=== PATIENT | female | born 1985 | race Caucasian/White ===

== ENCOUNTER 2018-07-16 11:10 | Inpatient (IN) | payer MEDICAID, OTHER, SELFPAY ==
[2018-07-16] MEDS ORDERED: TORADOL IV ONE (11:34)
[2018-07-16] MEDS ORDERED: NACL 0.9% 1000 ML 1,000 ML IV ONE (11:34)
[2018-07-16] MEDS ORDERED: MORPHINE IV ONE ×2 (11:39→13:45)
--- NOTE | 2018-07-16 11:41 | Emergency Department Report ---
ED Abdominal Pain HPI - General Chief Complaint: Abdominal Pain Stated Complaint: KIDNEY STONES/FEVER/PAIN Time Seen by Provider: 07/16/18 11:33 Source: patient, family, RN/MD Mode of arrival: Wheelchair Limitations: Language Barrier - History of Present Illness Initial Comments: This is a 33-year-old female nontoxic, well nourished in appearance, no acute signs of distress presents to the ED with c/o of nausea and vomiting and right flank pain 1 day. Patient was originally seen by Dr. Méndez in his office today and was brought to the ED for further evaulation. As per Dr. Méndez request, patient to received a CT with contrast to rule out kidney stone. Patient describes vomiting as food content and yellow gastric acid. Patient describes right flank pain as cramping and aching with level of 3/10 with some radiation to right upper abdominal. Patient denies chest pain, short of breath, fever, chills, headache, stiff neck, numbness or tingling. Patient denies any diarrhea or constipation. Patient denies any recent travels. Patient denies any urinary symptoms. Patient denies any allergies or PMH. Patient is Italian speaking, Alice auriculotherapist present during interview and physical exam. MD Complaint: flank pain -: days(s) (1) Location: R flank Radiation: RUQ Migration to: no migration Severity: mild Severity scale (0 -10): 8 Quality: aching Consistency: constant Improves With: nothing Worsens With: nothing Associated Symptoms: nausea, vomiting. denies: diarrhea, fever, chills, constipation, dysuria, hematemesis, hematochezia, melena, hematuria, anorexia, syncope - Related Data Home Medications Medication Instructions Recorded Confirmed Last Taken No Known Home Medications [No 07/16/18 07/16/18 Unknown Reported Home Medications] Allergies Allergy/AdvReac Type Severity Reaction Status Date / Time No Known Allergies Allergy Verified 07/16/18 11:20 ED Review of Systems ROS: Stated complaint: KIDNEY STONES/FEVER/PAIN Other details as noted in HPI Constitutional: denies: chills, fever Eyes: denies: eye pain, eye discharge, vision change ENT: denies: ear pain, throat pain Respiratory: denies: cough, shortness of breath, wheezing Cardiovascular: denies: chest pain, palpitations Endocrine: no symptoms reported Gastrointestinal: nausea, vomiting, other (right flank pain). denies: abdominal pain, diarrhea Genitourinary: denies: urgency, dysuria, discharge Musculoskeletal: denies: back pain, joint swelling, arthralgia Skin: denies: rash, lesions Neurological: denies: headache, weakness, paresthesias Psychiatric: denies: anxiety, depression Hematological/Lymphatic: denies: easy bleeding, easy bruising ED Past Medical Hx - Past Medical History Hx Hypertension: No Hx Congestive Heart Failure: No Hx Diabetes: No Hx Deep Vein Thrombosis: No Hx Renal Disease: No Hx Sickle Cell Disease: No Hx Seizures: No Hx Asthma: No Hx COPD: No Hx HIV: No - Surgical History Past Surgical History?: No - Social History Smoking Status: Never Smoker Substance Use Type: None - Medications Home Medications: Home Medications Medication Instructions Recorded Confirmed Last Taken Type No Known Home Medications [No 07/16/18 07/16/18 Unknown History Reported Home Medications] ED Physical Exam - General Limitations: Language Barrier General appearance: alert, in no apparent distress - Head Head exam: Present: atraumatic, normocephalic - Eye Eye exam: Present: normal appearance - Neck Neck exam: Present: normal inspection, full ROM - Respiratory Respiratory exam: Present: normal lung sounds bilaterally. Absent: respiratory distress, wheezes, rales, rhonchi, stridor, chest wall tenderness, accessory muscle use, decreased breath sounds, prolonged expiratory - Cardiovascular Cardiovascular Exam: Present: regular rate, normal rhythm, normal heart sounds. Absent: bradycardia, tachycardia, irregular rhythm, systolic murmur, diastolic murmur, rubs, gallop - GI/Abdominal GI/Abdominal exam: Present: soft, normal bowel sounds. Absent: distended, tenderness, guarding, rebound, rigid, diminished bowel sounds - Expanded GI/Abdominal Exam Expanded GI/Abdominal exam: Absent: psoas sign, Enriquez's sign, Rovsing's sign, tenderness at Mcburney's Point, ascites - Extremities Exam Extremities exam: Present: normal inspection, full ROM - Back Exam Back exam: Present: normal inspection, full ROM, tenderness, CVA tenderness (R). Absent: CVA tenderness (L), muscle spasm, paraspinal tenderness, vertebral tenderness, rash noted - Neurological Exam Neurological exam: Present: alert, oriented X3 - Psychiatric Psychiatric exam: Present: normal affect, normal mood - Skin Skin exam: Present: warm, dry, intact, normal color. Absent: rash ED Course Vital Signs 07/16/18 07/16/18 07/16/18 11:12 11:38 12:00 Temperature 98.9 F Pulse Rate 90 89 86 Respiratory 18 14 25 H Rate Blood Pressure 115/68 110/65 O2 Sat by Pulse 100 100 99 Oximetry 07/16/18 12:30 Temperature Pulse Rate 81 Respiratory 21 Rate Blood Pressure 141/69 O2 Sat by Pulse 100 Oximetry - Reevaluation(s) Reevaluation #1: 07/16/18 11:42 Patient is speaking in full sentences with no signs of distress noted. - Consultations Consultation #1: 07/16/18 13:41 Patient has been consulted with Dr. Méndez (Urology) about patient history, physical exam, and labs/CT results and agrees to the ED plan of care and will admit patient for further treatment and evaluation. ED Medical Decision Making - Lab Data Result diagrams: 07/16/18 11:44 07/16/18 11:44 - Medical Decision Making This is a 33-year-old female that presents with hydronephrosis with a large obstructing stone in the right UVJ. Patient also does have some cholelithiasis. Patient was consulted With Dr. Méndez and admitted for further treatment and evaluation. She received 1 g of Rocephin IV in the ER. Pain under control with morphine and Toradol IV. Put on NPO. At time of admission, the patient does not seem toxic or ill in appearance. No acute signs of distress noted. Patient agrees to admission treatment plan of care. No further questions noted by the patient. Critical care attestation.: If time is entered above; I have spent that time in minutes in the direct care of this critically ill patient, excluding procedure time. ED Disposition Clinical Impression: Hydronephrosis with renal calculous obstruction Cholelithiasis Qualifiers: Cholelithiasis location: gallbladder Cholecystitis presence: without cholecystitis Biliary obstruction: without biliary obstruction Qualified Code(s): K80.20 - Calculus of gallbladder without cholecystitis without obstruction Disposition: OP ADMIT IP TO THIS HOSP Is pt being admited?: Yes Condition: Stable Referrals: PRIMARY CARE,MD [Primary Care Provider] - 3-5 Days
[2018-07-16] MEDS ORDERED: MORPHINE ONE ×2 (11:49→13:47)
[2018-07-16] MEDS ORDERED: ZOFRAN IV NR (12:00)
[2018-07-16 12:02] LABS: Basophils # (Auto) 0.1 K/mm3 (0.0-0.1); Basophils % (Auto) 0.6 % (0.0-1.8); Eosinophils # (Auto) 0.1 K/mm3 (0.0-0.4); Eosinophils % (Auto) 1.3 % (0.0-4.3); Hematocrit 39.4 % (30.3-42.9); Lymphocytes # (Auto) 1.7 K/mm3 (1.2-5.4); Lymphocytes % (Auto) 18.7 % (13.4-35.0); Mean Corpuscular HGB Conc 33 % (30-34); Mean Corpuscular Volume 84 fl (79-97); Monocytes # (Auto) 0.5 K/mm3 (0.0-0.8); Monocytes % (Auto) 5.7 % (0.0-7.3); Platelet Count 203 K/mm3 (140-440); Red Blood Count 4.72 M/mm3 (3.65-5.03)
[2018-07-16 12:17] LABS: Alanine Aminotransferase 67 units/L (7-56); BUN/Creatinine Ratio 18; Bilirubin,Direct 0.3 mg/dL (0-0.2); Blood Urea Nitrogen 9 mg/dL (7-17); Calcium 8.6 mg/dL (8.4-10.2); Hemolysis Index 11
[2018-07-16 12:56] LABS: Bacteria,Urine 1+ /HPF (Negative); Bilirubin,Urine NEG (Negative); Blood,Urine SM (Negative); Color,Urine Yellow (Yellow); Mucus,Urine 2+ /HPF; Protein,Urine <15 mg/dL mg/dL (Negative); Urobilinogen,Urine < 2.0 mg/dL (<2.0)
--- NOTE | 2018-07-16 13:24 | Cat Scan Report ---
CT ABDOMEN PELVIS WITHOUT CONTRAST: HISTORY: Right flank pain. COMPARISON: none. TECHNIQUE: Helical CT in 1.25mm intervals without IV contrast. Sagittal and coronal reconstructions. FINDINGS: Lung bases: Normal. Liver: Moderate diffuse fatty infiltration is identified throughout the liver. Borderline to mild hepatomegaly. Biliary system: There are several small calcified gallstones in the gallbladder. No biliary dilatation or inflammation. Pancreas: Normal. Spleen: Normal. Kidneys/ureters/bladder: Moderate to severe right hydronephrosis is identified. An 11 x 6 x 5 mm stone is identified along the intramural portion of the right UVJ. No left ureteral stones. There are a few punctate renal calyceal stones in both kidneys. No focal renal lesion is appreciated. There appears to be a residual IV contrast in the renal collecting systems and bladder suggesting recent CT with IV contrast. Adrenal glands: Normal. Aorta: Normal. Intestines: Normal. Appendix: Normal. Pelvic viscera: Normal. Ascites: None. Adenopathy: None. Musculoskeletal: Normal. IMPRESSION: Large obstructing stone at the right UVJ as described. Punctate bilateral renal calyceal stones. Hepatomegaly with diffuse fatty infiltration. Cholelithiasis.
[2018-07-16] MEDS ORDERED: ROCEPHIN/NS 1 GM/50 ML 1 GM/50 ML BAG IV ONE (13:30)
--- NOTE | 2018-07-16 15:44 | Anesthesia Day of Surgery ---
Anesthesia Day of Surgery - Day of Surgery Patient Examined: Yes Patient H&P Reviewed: Yes Patient is NPO: Yes (8am today)
--- NOTE | 2018-07-16 15:46 | Anesthesia Consultation ---
Anesthesia Consult and Med Hx Date of service: 07/16/18 - Airway Anesthetic Teeth Evaluation: Good ROM Head & Neck: Adequate Mental/Hyoid Distance: Adequate Mallampati Class: Class II Intubation Access Assessment: Probably Good - Pre-Operative Health Status ASA Pre-Surgery Classification: ASA2 Proposed Anesthetic Plan: General - Pulmonary Hx Asthma: No COPD: No Hx Pneumonia: No - Cardiovascular System Hx Hypertension: No - Central Nervous System Hx Seizures: No Hx Psychiatric Problems: No - Endocrine Hx Renal Disease: No Hx End Stage Renal Disease: No Hx Hypothyroidism: No Hx Hyperthyroidism: No - Hematic Hx Anemia: No Hx Sickle Cell Disease: No - Other Systems Hx Alcohol Use: No Hx Obesity: Yes
[2018-07-16] MEDS ORDERED: DIPRIVAN 10 MG/ML IV ONE (16:02)
[2018-07-16] MEDS ORDERED: XYLOCAINE CARDIAC IV ONE (16:02)
[2018-07-16] MEDS ORDERED: SUBLIMAZE ONE (16:02)
[2018-07-16] MEDS ORDERED: OMNIPAQUE 300 MG/50 ML (CATH LAB) IV ONE (16:48)
[2018-07-16] MEDS ORDERED: VERSED ONE (16:51)
--- NOTE | 2018-07-16 17:14 | Post Operative Note ---
Date of procedure: 07/16/18 Pre-op diagnosis: cysto stetn rpg ureteral stoen temp 103 Post-op diagnosis: same Findings: pus r kidney Procedure: cayto stent Anesthesia: MAC Surgeon: GEORGINA BREWSTER Estimated blood loss: none Pathology: list (urine) Specimen disposition: to lab Condition: stable Disposition: PACU
[2018-07-16] MEDS ORDERED: ZOFRAN ONE (17:31)
[2018-07-16] MEDS ORDERED: DECADRON ONE (17:31)
[2018-07-16] MEDS ORDERED: NACL 0.9% 1000 ML 1,000 ML ONE ×2 (17:40→18:36)
[2018-07-16] MEDS ORDERED: SODIUM CHLORIDE FLUSH SYRINGE 10 ML IV PRN (18:04)
--- NOTE | 2018-07-16 18:22 | Event Note ---
Date: 07/16/[address] Méndez. Successful ureteral stent placement. If was unsuccessful, would have placed a percutaneous nephrostomy tube. No further need since ureteral stent successfully placed.
--- NOTE | 2018-07-16 18:25 | Operative Report ---
PREOPERATIVE DIAGNOSES: Sepsis, temperature of 103, severe right flank pain, nausea and vomiting, dehydration. POSTOPERATIVE DIAGNOSES: Sepsis, temperature of 103, severe right flank pain, nausea and vomiting, dehydration. PROCEDURE: Cystoscopy, right retrograde, right stent. SURGEON: Fazal Méndez MD ANESTHESIA: General. FINDINGS: This is a woman who presented with a large stone, distal ureter. She looked a little toxic in the office. She was here with her daughter. We sent her to the Emergency Room for treatment. Before the procedure, I spoke to Dr. Perez who was tied up in special procedures could not do a percutaneous nephrostomy until to , maybe tonight. She was now 103.5 and we told him we would try to do this under MAC. If we were unsuccessful, he would do the percutaneous nephrostomy tonight. DESCRIPTION OF PROCEDURE: The patient brought to the operating room and placed on the operating table. Following the induction of mild sedation, placed in the lithotomy position, prepped and draped in usual sterile fashion. She was tachycardic and febrile and hypotensive. The stone was at the orifice with a 3-prong grasper was too big to extract, but we were able to push it a little more proximal so we can get a wire up a tortuous kinked ureter. The ureter straightened out and we were able to place a 6-English double J. Urine was collected for culture. There was purulent material within it. The patient tolerated the procedure well. A Stuart was left, ____ coiled in the kidney and bladder, brought to recovery in stable condition. JOB# [id number] BEBE/MOISE
[2018-07-16] MEDS ORDERED: DILAUDID IM PRN (18:28)
[2018-07-16] MEDS ORDERED: DILAUDID ONE (18:35)
--- NOTE | 2018-07-16 20:06 | History and Physical Report ---
History of Present Illness Date of examination: 07/16/18 Date of admission: 07/16/2017 Chief complaint: Right flank pain for 1 day associated with nausea and vomiting and fever. History of present illness: 33-year-old female presents with nausea and vomiting and right flank pain of one-day duration. Patient was seen in Dr. Humphries's office and was sent to the emergency room for further evaluation. Patient had CT of the abdomen with contrast to rule out kidney stone in the emergency room. Patient was found to have a right distal ureteric stone for which she was taken to the operating room for ureteral stent placement. Patient being admitted from the PACU. Patient did nausea vomiting before the procedure for one day. Pain was about 10 on scale of 1-10. Patient also had a fever of 100F. Patient was seen by me in PACU after the right ureteral stent was placed. Patient being admitted for fever and urinary tract infection. Past Medical History kidney stones Surgical History Past Surgical History?: No Social History Smoking Status: Never Smoker Substance Use Type: None Family history Noncontributory Medications Home Medications: Home Medications Medication Instructions Recorded Confirmed Last Taken Type No Known Home Medications [No 07/16/18 07/16/18 Unknown History Reported Home Medications] Review of systems ROS: Stated complaint: KIDNEY STONES/FEVER/PAIN Other details as noted in HPI Constitutional: denies: chills, fever Eyes: denies: eye pain, eye discharge, vision change ENT: denies: ear pain, throat pain Respiratory: denies: cough, shortness of breath, wheezing Cardiovascular: denies: chest pain, palpitations Endocrine: no symptoms reported Gastrointestinal: nausea, vomiting, right flank pain. And abdominal pain---10/10 intermittent Genitourinary: denies: urgency, dysuria, discharge Musculoskeletal: denies: back pain, joint swelling, arthralgia Skin: denies: rash, lesions Neurological: denies: headache, weakness, paresthesias Psychiatric: denies: anxiety, depression Hematological/Lymphatic: denies: easy bleeding, easy bruising Medications and Allergies Allergies Allergy/AdvReac Type Severity Reaction Status Date / Time No Known Allergies Allergy Verified 07/16/18 11:20 Home Medications Medication Instructions Recorded Confirmed Last Taken Type No Known Home Medications [No 07/16/18 07/16/18 Unknown History Reported Home Medications] Active Meds: Active Medications Acetaminophen (Tylenol) 650 mg PO Q4H PRN PRN Reason: Pain MILD(1-3)/Fever >100.5/GAINES Famotidine (Pepcid) 20 mg IV BID [facility] Hydromorphone HCl (Dilaudid) 0.5 mg IV Q3H PRN PRN Reason: Pain , Severe (7-10) Hydromorphone HCl (Dilaudid) 0.5 mg IM Q10M PRN PRN Reason: Pain, Moderate (4-6) Ceftriaxone Sodium (Rocephin/Ns 2 Gm/100 Ml) 2 gm in 100 mls @ 200 mls/hr IV Q24HR [facility]; Protocol Ondansetron HCl (Zofran) 4 mg IV PREOP NR Stop: 07/16/18 23:59 Last Admin: 07/16/18 11:59 Dose: 4 mg Documented by: Ondansetron HCl (Zofran) 4 mg IV Q3H PRN PRN Reason: Nausea And Vomiting Sodium Chloride (Sodium Chloride Flush Syringe 10 Ml) 10 ml IV BID [facility] Sodium Chloride (Sodium Chloride Flush Syringe 10 Ml) 10 ml IV PRN PRN PRN Reason: LINE FLUSH Exam - Constitutional Vitals: Temp Pulse Resp BP Pulse Ox 99.2 F 102 H 22 103/61 97 07/16/18 19:40 07/16/18 19:40 07/16/18 19:40 07/16/18 19:40 07/16/18 19:40 General appearance: Present: no acute distress, well-nourished - EENT Eyes: Present: PERRL ENT: hearing intact, clear oral mucosa - Neck Neck: Present: supple, normal ROM - Respiratory Respiratory effort: normal Respiratory: bilateral: CTA - Cardiovascular Heart rate: 80 Rhythm: regular Heart Sounds: Present: S1 & S2. Absent: rub, click - Extremities Extremities: no ischemia, pulses intact, pulses symmetrical, No edema Peripheral Pulses: within normal limits - Abdominal General gastrointestinal: Present: soft, non-tender, non-distended, normal bowel sounds Female genitourinary: Present: normal - Rectal Rectal Exam: deferred - Integumentary Integumentary: Present: clear, warm, dry - Musculoskeletal Musculoskeletal: gait normal, strength equal bilaterally - Psychiatric Psychiatric: appropriate mood/affect, intact judgment & insight - Neurologic Neurologic: CNII-XII intact, moves all extremities - Allied Health Allied health notes reviewed: nursing, case management Results - Labs CBC & Chem 7: 07/16/18 11:44 07/16/18 11:44 Labs: Laboratory Last Values WBC 8.9 K/mm3 (4.5-11.0) 07/16/18 11:44 RBC 4.72 M/mm3 (3.65-5.03) 07/16/18 11:44 Hgb 13.0 gm/dl (10.1-14.3) 07/16/18 11:44 Hct 39.4 % (30.3-42.9) 07/16/18 11:44 MCV 84 fl (79-97) 07/16/18 11:44 MCH 28 pg (28-32) 07/16/18 11:44 MCHC 33 % (30-34) 07/16/18 11:44 RDW 13.0 % (13.2-15.2) L 07/16/18 11:44 Plt Count 203 K/mm3 (140-440) 07/16/18 11:44 Lymph % (Auto) 18.7 % (13.4-35.0) 07/16/18 11:44 [place] % (Auto) 5.7 % (0.0-7.3) 07/16/18 11:44 Eos % (Auto) 1.3 % (0.0-4.3) 07/16/18 11:44 Baso % (Auto) 0.6 % (0.0-1.8) 07/16/18 11:44 Lymph # 1.7 K/mm3 (1.2-5.4) 07/16/18 11:44 [place] # 0.5 K/mm3 (0.0-0.8) 07/16/18 11:44 Eos # 0.1 K/mm3 (0.0-0.4) 07/16/18 11:44 Baso # 0.1 K/mm3 (0.0-0.1) 07/16/18 11:44 Seg Neutrophils % 73.7 % (40.0-70.0) H 07/16/18 11:44 Seg Neutrophils # 6.5 K/mm3 (1.8-7.7) 07/16/18 11:44 Sodium 138 mmol/L (137-145) 07/16/18 11:44 Potassium 4.3 mmol/L (3.6-5.0) 07/16/18 11:44 Chloride 103.9 mmol/L (98-107) 07/16/18 11:44 Carbon Dioxide 25 mmol/L (22-30) 07/16/18 11:44 Anion Gap 13 mmol/L 07/16/18 11:44 BUN 9 mg/dL (7-17) 07/16/18 11:44 Creatinine 0.5 mg/dL (0.7-1.2) L 07/16/18 11:44 Estimated GFR > 60 ml/min 07/16/18 11:44 BUN/Creatinine Ratio 18 % 07/16/18 11:44 Glucose 111 mg/dL (65-100) H 07/16/18 11:44 Hemoglobin A1c 6.5 % (4-6) H 07/16/18 18:22 Calcium 8.6 mg/dL (8.4-10.2) 07/16/18 11:44 Total Bilirubin 1.40 mg/dL (0.1-1.2) H 07/16/18 11:44 Direct Bilirubin 0.3 mg/dL (0-0.2) H 07/16/18 11:44 Indirect Bilirubin 1.1 mg/dL 07/16/18 11:44 AST 29 units/L (5-40) 07/16/18 11:44 ALT 67 units/L (7-56) H 07/16/18 11:44 Alkaline Phosphatase 66 units/L (35-129) 07/16/18 11:44 Total Protein 6.7 g/dL (6.3-8.2) 07/16/18 11:44 Albumin 4.0 g/dL (3.9-5) 07/16/18 11:44 Albumin/Globulin Ratio 1.5 % 07/16/18 11:44 Lipase 30 units/L (13-60) 07/16/18 11:44 HCG, Qual Negative (Negative) 07/16/18 11:44 Urine Color Yellow (Yellow) 07/16/18 11:50 Urine Turbidity Slightly-cloudy (Clear) 07/16/18 11:50 Urine pH 6.0 (5.0-7.0) 07/16/18 11:50 Ur Specific [place] 1.020 (1.003-1.030) 07/16/18 11:50 Urine Protein <15 mg/dl mg/dL (Negative) 07/16/18 11:50 Urine Glucose (UA) Neg mg/dL (Negative) 07/16/18 11:50 Urine Ketones Neg mg/dL (Negative) 07/16/18 11:50 Urine Blood Sm (Negative) 07/16/18 11:50 Urine Nitrite Neg (Negative) 07/16/18 11:50 Urine Bilirubin Neg (Negative) 07/16/18 11:50 Urine Urobilinogen < 2.0 mg/dL (<2.0) 07/16/18 11:50 Ur Leukocyte Esterase Mod (Negative) 07/16/18 11:50 Urine WBC (Auto) 25.0 /HPF (0.0-6.0) H 07/16/18 11:50 Urine RBC (Auto) 1.0 /HPF (0.0-6.0) 07/16/18 11:50 U Epithel Cells (Auto) 8.0 /HPF (0-13.0) 07/16/18 11:50 Urine Bacteria (Auto) 1+ /HPF (Negative) 07/16/18 11:50 Urine Mucus 2+ /HPF 07/16/18 11:50 Short CBC 07/16/18 Range/Units 11:44 WBC 8.9 (4.5-11.0) K/mm3 Hgb 13.0 (10.1-14.3) gm/dl Hct 39.4 (30.3-42.9) % Plt Count 203 (140-440) K/mm3 BMP 07/16/18 11:44 Sodium 138 Potassium 4.3 Chloride 103.9 Carbon Dioxide 25 BUN 9 Creatinine 0.5 L Glucose 111 H Calcium 8.6 Liver Function 07/16/18 Range/Units 11:44 Total Bilirubin 1.40 H (0.1-1.2) mg/dL Direct Bilirubin 0.3 H (0-0.2) mg/dL AST 29 (5-40) units/L ALT 67 H (7-56) units/L Alkaline Phosphatase 66 (35-129) units/L Albumin 4.0 (3.9-5) g/dL Urine 07/16/18 Range/Units 11:50 Urine Color Yellow (Yellow) Urine pH 6.0 (5.0-7.0) Ur Specific [place] 1.020 (1.003-1.030) Urine Protein <15 mg/dl (Negative) mg/dL Urine Glucose (UA) Neg (Negative) mg/dL - Imaging and Cardiology CT scan - abdomen: report reviewed Imaging and Cardiology: CT abdomen and pelvis IMPRESSION: Large obstructing stone at the right UVJ as described. Punctate bilateral renal calyceal stones. Hepatomegaly with diffuse fatty infiltration. Cholelithiasis. Assessment and Plan Advance Directives: Yes (full code) VTE prophylaxis?: Chemical Plan of care discussed with patient/family: Yes - Patient Problems (1) SIRS (systemic inflammatory response syndrome) Current Visit: Yes Status: Acute Plan to address problem: Patient has fever and urinary tract infection Patient initiated on IV Rocephin pending urine cultures (2) Hydronephrosis with renal calculous obstruction Current Visit: Yes Status: Acute Plan to address problem: Patient had right ureteral stent placement. Postop patient doing well. (3) Urinary tract infection Current Visit: Yes Status: Acute Qualifiers: Urinary tract infection type: acute pyelonephritis Qualified Code(s): N10 - Acute pyelonephritis Plan to address problem: Patient on IV ceftriaxone Check urine cultures (4) Cholelithiasis Current Visit: Yes Status: Chronic Qualifiers: Cholelithiasis location: gallbladder Cholecystitis presence: without cholecystitis Biliary obstruction: without biliary obstruction Qualified Code(s): K80.20 - Calculus of gallbladder without cholecystitis without obstruction Plan to address problem: Incidental finding on the CT of the abdomen Patient to be informed so that she can follow up with her PCP (5) DVT prophylaxis Current Visit: Yes Status: Acute Plan to address problem: On Lovenox and GI prophylaxis
[2018-07-16] MEDS: DILAUDID IV PRN (21:18)
[2018-07-16] MEDS: D5NS 1,000 ML IV SCH (21:37)
[2018-07-16] MEDS: PEPCID IV SCH (21:37)
[2018-07-16] MEDS: LOVENOX SUB-Q SCH (21:37)
[2018-07-16] MEDS: SODIUM CHLORIDE FLUSH SYRINGE 10 ML IV SCH (21:43)
[2018-07-16] MEDS ORDERED: ROCEPHIN/NS 1 GM/50 ML 1 GM/50 ML BAG IV SCH ×2 (22:00)
[2018-07-16] MEDS: ROCEPHIN/NS 2 GM/100 ML 2 GM/100 ML BAG IV SCH (22:31)
[2018-07-17] MEDS: DILAUDID IV PRN ×4 (03:50→20:19)
[2018-07-17 06:13] LABS: Basophils % (Auto) 0.3 % (0.0-1.8); Hematocrit 36.5 % (30.3-42.9); Hemoglobin 11.9 gm/dl (10.1-14.3); Lymphocytes # (Auto) 1.1 K/mm3 (1.2-5.4); Lymphocytes % (Auto) 9.6 % (13.4-35.0); Mean Corpuscular HGB Conc 33 % (30-34); Mean Corpuscular Volume 85 fl (79-97); Monocytes % (Auto) 5.9 % (0.0-7.3); Platelet Count 183 K/mm3 (140-440); Red Blood Count 4.31 M/mm3 (3.65-5.03); Red Cell Distribution Width 13.1 % (13.2-15.2)
[2018-07-17 06:14] LABS: Monocytes # (Auto) 0.6 K/mm3 (0.0-0.8)
[2018-07-17 06:58] LABS: Alanine Aminotransferase 45 units/L (7-56); Albumin 3.4 g/dL (3.9-5); BUN/Creatinine Ratio 15; Blood Urea Nitrogen 6 mg/dL (7-17); Calcium 7.6 mg/dL (8.4-10.2); Hemolysis Index 5
--- NOTE | 2018-07-17 08:00 | Progress Note ---
Assessment and Plan Assessment and plan: Patient is a 33 yo Mongolian speaking woman with a history of kidney stones who presented to [facility] ED with flank pains, n/v. Patient was seen in Urologist's office, Dr. Méndez and was sent to ED for further evaluation. Patient was found to have large obstructing right UVJ stone for which she under cystoscopy followed by Ureteral shent placement. Pre-op temp was 103F per Op report. * CT abdomen and pelvis without contrast IMPRESSION: Large obstructing stone at the right UVJ as described. Punctate bilateral renal calyceal stones. Hepatomegaly with diffuse fatty infiltration. Cholelithiasis. * Cysto Date of procedure: 07/16/18, Pre-op diagnosis: cysto stetn rpg ureteral stoen temp 103, Post-op diagnosis: same, Findings: pus r kidney, Procedure: cayto stent, Anesthesia: MAC, Surgeon: GEORGINA MÉNDEZ * IR, Dr. Perez: Successful ureteral stent placement. If was unsuccessful, would have placed a percutaneous nephrostomy tube. No further need since ureteral stent successfully placed. -Sepsis UTI from Nephrolithiasis s/p shent placement: treat with abx, tylenol and IVF, , follow up urine ctx -Obstuctive Uropathy with Hydronephrosis with renal calculous obstruction: Urology is following -Urinary tract infection: treat with IV abx, follow urine culture -Cholelithiasis, Incidental finding on the CT of the abdomen, Patient to be informed so that she can follow up with her PCP -Obesity, bmi 33.6: legal counsel on lifestyle modifications DVT prophylaxix reviewed Await urine culture and still febrile History Interval history: Patient was seen and examined. Follow-up on current diagnosis of abd pain/n/v and infected kidney stone. Overnight uneventful. Patient denies any chest pain, shortness breath or severe headaches. Imaging, nursing note, chart, labs and old chart reviewed. Discussed with patient. Hospitalist Physical - Physical exam Narrative exam: Gen: WDWN, NAD, Awake, Alert, Orientated HEENT: NCAT, EOMI, PERRL, OP Clear Neck: supple, no adenopathy, no thyromegaly, no JVD CVS/Heart: RRR, normal S1S2, pulses present bilaterally Chest/Lungs: CTA B, Symmetrical chest expansion, good air entry bilaterally GI/Abdomen: soft, NTND, good bowel sounds, no guarding or rebound /Bladder: no suprapubic tenderness, no CVA or paraspinal tenderness Extermity/Skin: no c/c/e, no obvious rash MSK: FROM x 4 Neuro: CN 2-12 grossly intact, no new focal deficits Psych: calm - Constitutional Vitals: Temp Pulse Resp BP Pulse Ox 98.8 F 91 H 20 98/60 96 07/17/18 04:14 07/17/18 04:14 07/17/18 04:14 07/17/18 04:14 07/17/18 04:14 General appearance: Present: no acute distress, well-nourished Results - Labs CBC & Chem 7: 07/17/18 05:59 07/17/18 05:59 Labs: Laboratory Last Values WBC 11.0 K/mm3 (4.5-11.0) 07/17/18 05:59 RBC 4.31 M/mm3 (3.65-5.03) 07/17/18 05:59 Hgb 11.9 gm/dl (10.1-14.3) 07/17/18 05:59 Hct 36.5 % (30.3-42.9) 07/17/18 05:59 MCV 85 fl (79-97) 07/17/18 05:59 MCH 28 pg (28-32) 07/17/18 05:59 MCHC 33 % (30-34) 07/17/18 05:59 RDW 13.1 % (13.2-15.2) L 07/17/18 05:59 Plt Count 183 K/mm3 (140-440) 07/17/18 05:59 Lymph % (Auto) 9.6 % (13.4-35.0) L 07/17/18 05:59 [place] % (Auto) 5.9 % (0.0-7.3) 07/17/18 05:59 Eos % (Auto) 0.0 % (0.0-4.3) 07/17/18 05:59 Baso % (Auto) 0.3 % (0.0-1.8) 07/17/18 05:59 Lymph # 1.1 K/mm3 (1.2-5.4) L 07/17/18 05:59 [place] # 0.6 K/mm3 (0.0-0.8) 07/17/18 05:59 Eos # 0.0 K/mm3 (0.0-0.4) 07/17/18 05:59 Baso # 0.0 K/mm3 (0.0-0.1) 07/17/18 05:59 Seg Neutrophils % 84.2 % (40.0-70.0) H 07/17/18 05:59 Seg Neutrophils # 9.3 K/mm3 (1.8-7.7) H 07/17/18 05:59 Sodium 136 mmol/L (137-145) L 07/17/18 05:59 Potassium 3.6 mmol/L (3.6-5.0) 07/17/18 05:59 Chloride 103.6 mmol/L (98-107) 07/17/18 05:59 Carbon Dioxide 22 mmol/L (22-30) 07/17/18 05:59 Anion Gap 14 mmol/L 07/17/18 05:59 BUN 6 mg/dL (7-17) L 07/17/18 05:59 Creatinine 0.4 mg/dL (0.7-1.2) L 07/17/18 05:59 Estimated GFR > 60 ml/min 07/17/18 05:59 BUN/Creatinine Ratio 15 % 07/17/18 05:59 Glucose 146 mg/dL (65-100) H 07/17/18 05:59 Hemoglobin A1c 6.5 % (4-6) H 07/16/18 18:22 Calcium 7.6 mg/dL (8.4-10.2) L 07/17/18 05:59 Total Bilirubin 0.80 mg/dL (0.1-1.2) 07/17/18 05:59 Direct Bilirubin 0.3 mg/dL (0-0.2) H 07/16/18 11:44 Indirect Bilirubin 1.1 mg/dL 07/16/18 11:44 AST 15 units/L (5-40) 07/17/18 05:59 ALT 45 units/L (7-56) 07/17/18 05:59 Alkaline Phosphatase 53 units/L (35-129) 07/17/18 05:59 Total Protein 5.6 g/dL (6.3-8.2) L 07/17/18 05:59 Albumin 3.4 g/dL (3.9-5) L 07/17/18 05:59 Albumin/Globulin Ratio 1.5 % 07/17/18 05:59 Lipase 30 units/L (13-60) 07/16/18 11:44 HCG, Qual Negative (Negative) 07/16/18 11:44 Urine Color Yellow (Yellow) 07/16/18 11:50 Urine Turbidity Slightly-cloudy (Clear) 07/16/18 11:50 Urine pH 6.0 (5.0-7.0) 07/16/18 11:50 Ur Specific [place] 1.020 (1.003-1.030) 07/16/18 11:50 Urine Protein <15 mg/dl mg/dL (Negative) 07/16/18 11:50 Urine Glucose (UA) Neg mg/dL (Negative) 07/16/18 11:50 Urine Ketones Neg mg/dL (Negative) 07/16/18 11:50 Urine Blood Sm (Negative) 07/16/18 11:50 Urine Nitrite Neg (Negative) 07/16/18 11:50 Urine Bilirubin Neg (Negative) 07/16/18 11:50 Urine Urobilinogen < 2.0 mg/dL (<2.0) 07/16/18 11:50 Ur Leukocyte Esterase Mod (Negative) 07/16/18 11:50 Urine WBC (Auto) 25.0 /HPF (0.0-6.0) H 07/16/18 11:50 Urine RBC (Auto) 1.0 /HPF (0.0-6.0) 07/16/18 11:50 U Epithel Cells (Auto) 8.0 /HPF (0-13.0) 07/16/18 11:50 Urine Bacteria (Auto) 1+ /HPF (Negative) 07/16/18 11:50 Urine Mucus 2+ /HPF 07/16/18 11:50
--- NOTE | 2018-07-17 08:18 | Fluoroscopy Report ---
FLUOROSCOPY RETROGRADE UROGRAPHY: HISTORY: Right ureteral stone. FINDINGS: Fluoroscopy was provided by radiology during retrograde urography by the urologist. 4 fluoroscopic images were captured. Recent CT abdomen and pelvis was again reviewed. Fluoroscopic images demonstrate a filling defect in the distal right ureter consistent with an obstructing stone. Subsequent images demonstrate removal of the stone and right ureteral stent placement. There is good drainage of the right collecting system on the final image. No images of the left collecting system were saved. Please correlate with the procedural report by Dr. Méndez as needed. IMPRESSION: Right ureteral stone removal. Right ureteral stent placement.
[2018-07-17] MEDS: TYLENOL PO PRN ×3 (08:30→20:13)
[2018-07-17] MEDS: D5NS 1,000 ML IV SCH (08:39)
--- NOTE | 2018-07-17 09:01 | Progress Note ---
Subjective Date of service: 07/17/18 Interval history: cysto rt stent for 11mm distal stone (07-16- Dr. Humphries) resting well feels better still with temp needs IV abx home when stable f/u in office Objective - Constitutional Vitals: Vital Signs - 12hr 07/17/18 07/17/18 07/17/18 00:37 04:14 07:52 Temperature 97.9 F 98.8 F 101.3 F H Pulse Rate 84 91 H 97 H Respiratory 20 20 18 Rate Blood Pressure 101/60 98/60 102/63 O2 Sat by Pulse 97 96 98 Oximetry - Labs CBC & Chem 7: 07/17/18 05:59 07/17/18 05:59 Labs: Abnormal lab results 07/16/18 07/16/18 07/16/18 Range/Units 11:44 11:44 11:50 RDW 13.0 L (13.2-15.2) % Lymph % (Auto) (13.4-35.0) % Lymph # (1.2-5.4) K/mm3 Seg Neutrophils % 73.7 H (40.0-70.0) % Seg Neutrophils # (1.8-7.7) K/mm3 Sodium (137-145) mmol/L BUN (7-17) mg/dL Creatinine 0.5 L (0.7-1.2) mg/dL Glucose 111 H (65-100) mg/dL Hemoglobin A1c (4-6) % Calcium (8.4-10.2) mg/dL Total Bilirubin 1.40 H (0.1-1.2) mg/dL Direct Bilirubin 0.3 H (0-0.2) mg/dL ALT 67 H (7-56) units/L Total Protein (6.3-8.2) g/dL Albumin (3.9-5) g/dL Urine WBC (Auto) 25.0 H (0.0-6.0) /HPF 07/16/18 07/17/18 07/17/18 Range/Units 18:22 05:59 05:59 RDW 13.1 L (13.2-15.2) % Lymph % (Auto) 9.6 L (13.4-35.0) % Lymph # 1.1 L (1.2-5.4) K/mm3 Seg Neutrophils % 84.2 H (40.0-70.0) % Seg Neutrophils # 9.3 H (1.8-7.7) K/mm3 Sodium 136 L (137-145) mmol/L BUN 6 L (7-17) mg/dL Creatinine 0.4 L (0.7-1.2) mg/dL Glucose 146 H (65-100) mg/dL Hemoglobin A1c 6.5 H (4-6) % Calcium 7.6 L (8.4-10.2) mg/dL Total Bilirubin (0.1-1.2) mg/dL Direct Bilirubin (0-0.2) mg/dL ALT (7-56) units/L Total Protein 5.6 L (6.3-8.2) g/dL Albumin 3.4 L (3.9-5) g/dL Urine WBC (Auto) (0.0-6.0) /HPF Medications & Allergies - Medications Allergies/Adverse Reactions: Allergies No Known Allergies Allergy (Verified 07/16/18 11:20) Home Medications: Home Medications Medication Instructions Recorded Confirmed Last Taken Type No Known Home Medications [No 07/16/18 07/16/18 Unknown History Reported Home Medications] Active Medications: Generic Name Dose Route Start Last Admin Trade Name Freq PRN Reason Stop Dose Admin Acetaminophen 650 mg 07/16/18 18:04 07/17/18 08:30 Tylenol PO 650 mg Q4H PRN Administration Pain MILD(1-3)/Fever >100.5/GAINES Enoxaparin Sodium 40 mg 07/16/18 22:00 07/16/18 21:37 Lovenox SUB-Q 40 mg QDAY@2200 EMERSON Administration Famotidine 20 mg 07/16/18 22:00 07/16/18 21:37 Pepcid IV 20 mg BID [place] Administration Hydromorphone HCl 0.5 mg 07/16/18 18:04 07/17/18 08:35 Dilaudid IV 0.5 mg Q3H PRN Administration Pain , Severe (7-10) Hydromorphone HCl 0.5 mg 07/16/18 18:28 Dilaudid IM Q10M PRN Pain, Moderate (4-6) Ceftriaxone Sodium 2 gm in 100 mls @ 200 mls/hr 07/16/18 20:00 07/16/18 22:31 Rocephin/Ns 2 Gm/100 Ml IV 200 mls/hr Q24HR EMERSON Administration Protocol Dextrose/Sodium Chloride 1,000 mls @ 75 mls/hr 07/16/18 21:00 07/17/18 08:39 D5ns IV 75 mls/hr DIRECT EMERSON Administration Ondansetron HCl 4 mg 07/16/18 18:04 Zofran IV Q3H PRN Nausea And Vomiting Sodium Chloride 10 ml 07/16/18 22:00 07/16/18 21:43 Sodium Chloride Flush Syringe 10 Ml IV 10 ml BID EMERSON Administration Sodium Chloride 10 ml 07/16/18 18:04 Sodium Chloride Flush Syringe 10 Ml IV PRN PRN LINE FLUSH
[2018-07-17] MEDS: PEPCID IV SCH ×2 (10:14→22:45)
[2018-07-17] MEDS: ROCEPHIN/NS 2 GM/100 ML 2 GM/100 ML BAG IV SCH (10:17)
[2018-07-17] MEDS ORDERED: NACL 0.9% 1000 ML 1,000 ML IV ONE (13:01)
[2018-07-17] MEDS ORDERED: NACL 0.9% 500 ML 500 ML IV ONE (14:34)
[2018-07-17] MEDS: NACL 0.9% 1000 ML 1,000 ML IV SCH (17:02)
[2018-07-17] MEDS: SODIUM CHLORIDE FLUSH SYRINGE 10 ML IV SCH (22:00)
[2018-07-17] MEDS: LOVENOX SUB-Q SCH (22:45)
[2018-07-18] MEDS: TYLENOL PO PRN ×4 (00:48→21:38)
[2018-07-18] MEDS: DILAUDID IV PRN ×4 (01:59→16:11)
[2018-07-18] MEDS: ZOFRAN IV PRN (04:58)
[2018-07-18] MEDS: PEPCID IV SCH ×3 (08:22→21:39)
[2018-07-18] MEDS: SODIUM CHLORIDE FLUSH SYRINGE 10 ML IV SCH ×3 (10:00→21:41)
[2018-07-18] MEDS: NACL 0.9% 1000 ML 1,000 ML IV SCH (10:15)
--- NOTE | 2018-07-18 16:11 | Progress Note ---
Assessment and Plan Assessment and plan: Patient is a 33 yo Czech speaking woman with a history of kidney stones who presented to [facility] ED with flank pains, n/v. Patient was seen in Urologist's office, Dr. Méndez and was sent to ED for further evaluation. Patient was found to have large obstructing right UVJ stone for which she under cystoscopy followed by Ureteral shent placement. Pre-op temp was 103F per Op report. * CT abdomen and pelvis without contrast IMPRESSION: Large obstructing stone at the right UVJ as described. Punctate bilateral renal calyceal stones. Hepatomegaly with diffuse fatty infiltration. Cholelithiasis. * Cysto Date of procedure: 07/16/18, Pre-op diagnosis: cysto stetn rpg ureteral stoen temp 103, Post-op diagnosis: same, Findings: pus r kidney, Procedure: cayto stent, Anesthesia: MAC, Surgeon: GEORGINA MÉNDEZ * IR, Dr. Perez: Successful ureteral stent placement. If was unsuccessful, would have placed a percutaneous nephrostomy tube. No further need since ureteral stent successfully placed. -Sepsis UTI from Nephrolithiasis s/p Ureteral shent placement on 07/16/18: treat with abx, tylenol and IVF, follow up urine ctx -Complicated Pyelonephritis due to obstructive uropathy: consulted ID -Obstuctive Uropathy with Hydronephrosis with renal calculous obstruction: Urology is following -Urinary tract infection complicated: treat with IV abx, follow urine culture -Cholelithiasis, Incidental finding on the CT of the abdomen, Patient to be informed so that she can follow up with her PCP -Obesity, bmi 33.6: mortgage counselor on lifestyle modifications DVT prophylaxis reviewed Await urine culture and still febrile===>Enterococcus growing in urine culture, consulted and spoke with Infectious Disease physician, Dr. Santoyo, will change iv rocephin to iv zosyn. History Interval history: Patient was seen and examined. Follow-up on current diagnosis of abd pain/n/v and infected kidney stone. Overnight eventful with fevers. Patient denies any chest pain, shortness breath or severe headaches. Imaging, nursing note, chart, labs and old chart reviewed. Discussed with patient. at bedside Hospitalist Physical - Physical exam Narrative exam: Gen: WDWN, NAD, Awake, Alert, Orientated HEENT: NCAT, EOMI, PERRL, OP Clear Neck: supple, no adenopathy, no thyromegaly, no JVD CVS/Heart: RRR, normal S1S2, pulses present bilaterally Chest/Lungs: CTA B, Symmetrical chest expansion, good air entry bilaterally GI/Abdomen: soft, NTND, good bowel sounds, no guarding or rebound /Bladder: no suprapubic tenderness, no CVA or paraspinal tenderness Extermity/Skin: no c/c/e, no obvious rash MSK: FROM x 4 Neuro: CN 2-12 grossly intact, no new focal deficits Psych: calm - Constitutional Vitals: Temp Pulse Resp BP Pulse Ox 99.9 F H 81 16 96/57 97 07/18/18 14:00 07/18/18 11:13 07/18/18 11:13 07/18/18 11:13 07/18/18 11:13 General appearance: Present: no acute distress, well-nourished Results - Labs CBC & Chem 7: 07/17/18 05:59 07/17/18 05:59 Labs: Laboratory Last Values WBC 11.0 K/mm3 (4.5-11.0) 07/17/18 05:59 RBC 4.31 M/mm3 (3.65-5.03) 07/17/18 05:59 Hgb 11.9 gm/dl (10.1-14.3) 07/17/18 05:59 Hct 36.5 % (30.3-42.9) 07/17/18 05:59 MCV 85 fl (79-97) 07/17/18 05:59 MCH 28 pg (28-32) 07/17/18 05:59 MCHC 33 % (30-34) 07/17/18 05:59 RDW 13.1 % (13.2-15.2) L 07/17/18 05:59 Plt Count 183 K/mm3 (140-440) 07/17/18 05:59 Lymph % (Auto) 9.6 % (13.4-35.0) L 07/17/18 05:59 [place] % (Auto) 5.9 % (0.0-7.3) 07/17/18 05:59 Eos % (Auto) 0.0 % (0.0-4.3) 07/17/18 05:59 Baso % (Auto) 0.3 % (0.0-1.8) 07/17/18 05:59 Lymph # 1.1 K/mm3 (1.2-5.4) L 07/17/18 05:59 [place] # 0.6 K/mm3 (0.0-0.8) 07/17/18 05:59 Eos # 0.0 K/mm3 (0.0-0.4) 07/17/18 05:59 Baso # 0.0 K/mm3 (0.0-0.1) 07/17/18 05:59 Seg Neutrophils % 84.2 % (40.0-70.0) H 07/17/18 05:59 Seg Neutrophils # 9.3 K/mm3 (1.8-7.7) H 07/17/18 05:59 Sodium 136 mmol/L (137-145) L 07/17/18 05:59 Potassium 3.6 mmol/L (3.6-5.0) 07/17/18 05:59 Chloride 103.6 mmol/L (98-107) 07/17/18 05:59 Carbon Dioxide 22 mmol/L (22-30) 07/17/18 05:59 Anion Gap 14 mmol/L 07/17/18 05:59 BUN 6 mg/dL (7-17) L 07/17/18 05:59 Creatinine 0.4 mg/dL (0.7-1.2) L 07/17/18 05:59 Estimated GFR > 60 ml/min 07/17/18 05:59 BUN/Creatinine Ratio 15 % 07/17/18 05:59 Glucose 146 mg/dL (65-100) H 07/17/18 05:59 Hemoglobin A1c 6.5 % (4-6) H 07/16/18 18:22 Calcium 7.6 mg/dL (8.4-10.2) L 07/17/18 05:59 Total Bilirubin 0.80 mg/dL (0.1-1.2) 07/17/18 05:59 Direct Bilirubin 0.3 mg/dL (0-0.2) H 07/16/18 11:44 Indirect Bilirubin 1.1 mg/dL 07/16/18 11:44 AST 15 units/L (5-40) 07/17/18 05:59 ALT 45 units/L (7-56) 07/17/18 05:59 Alkaline Phosphatase 53 units/L (35-129) 07/17/18 05:59 Total Protein 5.6 g/dL (6.3-8.2) L 07/17/18 05:59 Albumin 3.4 g/dL (3.9-5) L 07/17/18 05:59 Albumin/Globulin Ratio 1.5 % 07/17/18 05:59 Lipase 30 units/L (13-60) 07/16/18 11:44 HCG, Qual Negative (Negative) 07/16/18 11:44 Urine Color Yellow (Yellow) 07/16/18 11:50 Urine Turbidity Slightly-cloudy (Clear) 07/16/18 11:50 Urine pH 6.0 (5.0-7.0) 07/16/18 11:50 Ur Specific [place] 1.020 (1.003-1.030) 07/16/18 11:50 Urine Protein <15 mg/dl mg/dL (Negative) 07/16/18 11:50 Urine Glucose (UA) Neg mg/dL (Negative) 07/16/18 11:50 Urine Ketones Neg mg/dL (Negative) 07/16/18 11:50 Urine Blood Sm (Negative) 07/16/18 11:50 Urine Nitrite Neg (Negative) 07/16/18 11:50 Urine Bilirubin Neg (Negative) 07/16/18 11:50 Urine Urobilinogen < 2.0 mg/dL (<2.0) 07/16/18 11:50 Ur Leukocyte Esterase Mod (Negative) 07/16/18 11:50 Urine WBC (Auto) 25.0 /HPF (0.0-6.0) H 07/16/18 11:50 Urine RBC (Auto) 1.0 /HPF (0.0-6.0) 07/16/18 11:50 U Epithel Cells (Auto) 8.0 /HPF (0-13.0) 07/16/18 11:50 Urine Bacteria (Auto) 1+ /HPF (Negative) 07/16/18 11:50 Urine Mucus 2+ /HPF 07/16/18 11:50
[2018-07-18] MEDS ORDERED: IBUPROFEN PO PRN (16:12)
[2018-07-18] MEDS: ROCEPHIN/NS 2 GM/100 ML 2 GM/100 ML BAG IV SCH (16:17)
[2018-07-18] MEDS: ZOSYN/NS 4.5GM/100ML 4.5 GM/100 ML VIAL IV SCH ×2 (17:40→21:39)
[2018-07-18] MEDS: LOVENOX SUB-Q SCH (21:39)
[2018-07-19] MEDS: DILAUDID IV PRN ×4 (04:05→22:52)
[2018-07-19 05:25] LABS: BUN/Creatinine Ratio 10; Blood Urea Nitrogen 5 mg/dL (7-17); Calcium 8.2 mg/dL (8.4-10.2); Hemolysis Index 4
[2018-07-19 05:27] LABS: Hematocrit 34.1 % (30.3-42.9); Hemoglobin 11.4 gm/dl (10.1-14.3); Mean Corpuscular HGB Conc 33 % (30-34); Mean Corpuscular Volume 83 fl (79-97); Platelet Count 155 K/mm3 (140-440); Red Blood Count 4.11 M/mm3 (3.65-5.03); Red Cell Distribution Width 13.3 % (13.2-15.2)
[2018-07-19] MEDS: NACL 0.9% 1000 ML 1,000 ML IV SCH ×2 (05:42→16:20)
[2018-07-19] MEDS: ZOSYN/NS 4.5GM/100ML 4.5 GM/100 ML VIAL IV SCH ×2 (05:43→15:31)
[2018-07-19] MEDS: ZOFRAN IV PRN ×3 (10:40→22:52)
[2018-07-19] MEDS: PEPCID IV SCH ×2 (10:40→22:52)
[2018-07-19] MEDS: TYLENOL PO PRN (10:41)
[2018-07-19] MEDS: SODIUM CHLORIDE FLUSH SYRINGE 10 ML IV SCH ×2 (10:42→22:53)
--- NOTE | 2018-07-19 15:01 | Consultation ---
History of Present Illness - Reason for Consult Consult date: 07/19/18 UTI Requesting physician: TERRY PEREZ - History of Present Illness 33 y/o female with no medical history; admitted on 07/16/2018 due to 2 week- history of severe right flank pain associated with on-off chills and subjective fever, also c/o dysuria and mild hematuria. Patient reports nausea. Flank pain became excruciate, patient came to the ED. In the ED, temp 98.9, HR 90, R 18, BP 115/68, WBC 8.9. Hg 13. plat 203. Creat 0.5. ALT 67. Total bili 1.4. UA showed 25 wbc and LE mod. Urine culture grew E faecalis. CT abdomen showed large right kidney stone at the UVJ. Patient underwent retrograde pyelogram for stone removal and stent placement on 07/16/2018. patient skiped an fever at 103 on 07/17/2018. ROS: General: no fever, no chills, no nightsweats,+ weakness, + anorexia Cutaneous: no rash, pruritus Head: no headaches or injury Eyes: no changes in vision, eye pain, double vision Ears: no ear pain, ear discharge, ringing or hearing loss Nose: no nose bleeding, stuffiness Mouth & throat: no bleeding gums, no horseness, no dental problems, or swollen glands Neck: no pain, node enlargement/lumps, tyroid enlargement or tenderness Respiratory: no cough, wheezing, no sputum, hemoptysis, pleuritic chest pain Cardiovascular: no chest pain, leg edema, cyanosis, VOGT, orthopnea Musculoskeletal: no decreased joint motion, no left leg tenderness, no swelling Gastrointestinal: + nausea, + vomiting, no hematemesis, diarrhea, constipation, Genitourinary/Reproductive: + frequent urination, + dysuria, + hematuria, incontinence Neurogical: no seizures, no headaches, no weakness, no paresthesias, no loss of speech or vision Psychiatric: stable mood; no excessive anxiety, sadness or moodiness Medications and Allergies Allergies Allergy/AdvReac Type Severity Reaction Status Date / Time No Known Allergies Allergy Verified 07/16/18 11:20 Home Medications Medication Instructions Recorded Confirmed Last Taken Type No Known Home Medications [No 07/16/18 07/16/18 Unknown History Reported Home Medications] Active Meds: Active Medications Acetaminophen (Tylenol) 650 mg PO Q4H PRN PRN Reason: Pain MILD(1-3)/Fever >100.5/GAINES Last Admin: 07/19/18 10:41 Dose: 650 mg Documented by: Enoxaparin Sodium (Lovenox) 40 mg SUB-Q QDAY@2200 [place] Last Admin: 07/18/18 21:39 Dose: 40 mg Documented by: Famotidine (Pepcid) 20 mg IV BID [facility] Last Admin: 07/19/18 10:40 Dose: 20 mg Documented by: Hydromorphone HCl (Dilaudid) 0.5 mg IV Q3H PRN PRN Reason: Pain , Severe (7-10) Last Admin: 07/19/18 10:41 Dose: 0.5 mg Documented by: Hydromorphone HCl (Dilaudid) 0.5 mg IM Q10M PRN PRN Reason: Pain, Moderate (4-6) Sodium Chloride (Nacl 0.9% 1000 Ml) 1,000 mls @ 125 mls/hr IV DIRECT [facility] Last Admin: 07/19/18 05:42 Dose: 125 mls/hr Documented by: Piperacillin Sod/Tazobactam Sod (Zosyn/Ns 4.5gm/100ml) 4.5 gm in 100 mls @ 200 mls/hr IV Q8HR [facility]; Protocol Last Admin: 07/19/18 05:43 Dose: 200 mls/hr Documented by: Ibuprofen (Motrin) 800 mg PO Q12H PRN PRN Reason: Fever >101 Ondansetron HCl (Zofran) 4 mg IV Q3H PRN PRN Reason: Nausea And Vomiting Last Admin: 07/19/18 10:40 Dose: 4 mg Documented by: Sodium Chloride (Sodium Chloride Flush Syringe 10 Ml) 10 ml IV BID [facility] Last Admin: 07/19/18 10:42 Dose: 10 ml Documented by: Sodium Chloride (Sodium Chloride Flush Syringe 10 Ml) 10 ml IV PRN PRN PRN Reason: LINE FLUSH Physical Examination - Physical Exam Narrative exam: Constitutional: Alert, cooperative. in NAD Head, Ears, Nose: Normocephalic, atraumatic. External ears, nose normal Eyes: Conjunctivae/corneas clear. No icterus. No ptosis. Neck: Supple, no meningeal signs Oral: dentition poor no thrush Cardiovascular: RRR Respiratory: CTAB GI: Soft, non-tender; bowel sounds normal. +Right CVT Musculoskeletal: No pedal edema, no cyanosis. Skin: No rash or abscess. Hem/Lymphatic: No palpable cervical or supraclavicular nodes. No lymphangitis Psych: Mood ok. Affect normal Neurological: Awake, alert, oriented. - Constitutional Vitals: Vital Signs Temp Pulse Resp BP Pulse Ox 98.0 F 52 L 20 110/65 100 07/19/18 07:20 07/19/18 07:20 07/19/18 07:20 07/19/18 07:20 07/19/18 07:20 Temperature -Last 24 Hours Temperature 98.0 F Temperature 98.7 F Temperature 97.9 F Temperature 98.1 F Temperature 101.0 F Results - Labs CBC & Chem 7: 07/19/18 04:00 07/19/18 04:00 Labs: Abnormal lab results 07/19/18 Range/Units 04:00 Potassium 3.2 L (3.6-5.0) mmol/L BUN 5 L (7-17) mg/dL Creatinine 0.5 L (0.7-1.2) mg/dL Calcium 8.2 L (8.4-10.2) mg/dL Assessment and Plan Cultures: 07/16/2018 urine culture E faecalis 07/18/2018 blood culture pending A/P: 33 y/o female with no medical history; admitted on 07/16/2018 due to 2 week- history of severe right flank pain associated with on-off chills and subjective fever, also c/o dysuria and mild hematuria: Sepsis: not present on admission with fever, tachycardia; likely due to complicated UTI, fever noted maily after stone removal procedure, patient skiped an fever at 103 on 07/17/2018. Complicated UTI: with large obstructive right kidney stone at the UVJ. Patient underwent retrograde pyelogram for stone removal and stent placement on 07/16/2018. Urine culture grew E faecalis. Elevated LFTs, mild: from sepsis vs GB pathology. ALT 67. Total bili 1.4. Recs: Stop zosyn Start unasyn - E faecalis sensitive to penicillin Monitor fever LFTS already back to normal Grisel Santoyo MD [facility] C: [phone] O: [phone] F: [phone]
[2018-07-19] MEDS: UNASYN/NS 3 GM/100 ML 3 GM/100 ML BAG IV SCH (19:40)
[2018-07-19] MEDS: LOVENOX SUB-Q SCH (22:51)
[2018-07-20] MEDS: UNASYN/NS 3 GM/100 ML 3 GM/100 ML BAG IV SCH ×5 (01:00→23:34)
[2018-07-20] MEDS: ZOFRAN IV PRN (04:57)
[2018-07-20] MEDS: DILAUDID IV PRN ×4 (04:58→21:28)
[2018-07-20 05:12] LABS: Hematocrit 36.1 % (30.3-42.9); Hemoglobin 11.9 gm/dl (10.1-14.3); Mean Corpuscular HGB Conc 33 % (30-34); Mean Corpuscular Volume 84 fl (79-97); Platelet Count 167 K/mm3 (140-440); Red Cell Distribution Width 13.2 % (13.2-15.2)
[2018-07-20 05:29] LABS: BUN/Creatinine Ratio 12; Blood Urea Nitrogen 7 mg/dL (7-17); Calcium 8.2 mg/dL (8.4-10.2); Hemolysis Index 1
[2018-07-20] MEDS: PEPCID IV SCH ×2 (10:20→21:28)
[2018-07-20] MEDS: SODIUM CHLORIDE FLUSH SYRINGE 10 ML IV SCH ×2 (10:27→23:38)
--- NOTE | 2018-07-20 10:43 | Progress Note ---
Assessment and Plan Cultures: 07/16/2018 urine culture E faecalis 07/18/2018 blood culture pending A/P: 33 y/o female with no medical history; admitted on 07/16/2018 due to 2 week- history of severe right flank pain associated with on-off chills and subjective fever, also c/o dysuria and mild hematuria: Sepsis: not present on admission with fever, tachycardia; likely due to complicated UTI, fever noted maily after stone removal procedure, patient skiped an fever at 103 on 07/17/2018. Complicated UTI: with large obstructive right kidney stone at the UVJ. Patient underwent retrograde pyelogram for stone removal and stent placement on 07/16/2018. Urine culture grew E faecalis. Elevated LFTs, mild: from sepsis vs GB pathology. ALT 67. Total bili 1.4. Recs: Continue unasyn - E faecalis sensitive to penicillin Monitor fever LFTS already back to normal Ok to discharge from ID standpoint, Amoxicillin 500mg, PO Q8H for 7 days [facility] [place] [facility] M: [phone] O:[phone] Subjective Date of service: 07/20/18 Interval history: patient seen and examined. Primary language Liberian, interpretation via family member. Stated that she was feeling better today. Objective - Exam Narrative Exam: Constitutional: Alert, cooperative. in NAD Head, Ears, Nose: Normocephalic, atraumatic. External ears, nose normal Eyes: Conjunctivae/corneas clear. No icterus. No ptosis. Neck: Supple, no meningeal signs Oral: dentition poor no thrush Cardiovascular: RRR Respiratory: CTAB GI: Soft, non-tender; bowel sounds normal. +Right CVT Musculoskeletal: No pedal edema, no cyanosis. Skin: No rash or abscess. Hem/Lymphatic: No palpable cervical or supraclavicular nodes. No lymphangitis Psych: Mood ok. Affect normal Neurological: Awake, alert, oriented. - Constitutional Vitals: Vital Signs Temp Pulse Resp BP Pulse Ox 97.9 F 63 18 94/59 97 07/20/18 07:23 07/20/18 07:23 07/20/18 07:23 07/20/18 07:23 07/20/18 07:23 Temperature -Last 24 Hours Temperature 97.9 F Temperature 97.9 F Temperature 97.8 F Temperature 97.9 F Temperature 98.6 F Temperature 98.9 F - Labs CBC & Chem 7: 07/20/18 05:00 07/20/18 05:00 Labs: Abnormal lab results 07/20/18 Range/Units 05:00 Potassium 3.2 L (3.6-5.0) mmol/L Creatinine 0.6 L (0.7-1.2) mg/dL Glucose 108 H (65-100) mg/dL Calcium 8.2 L (8.4-10.2) mg/dL
--- NOTE | 2018-07-20 12:33 | Progress Note ---
Assessment and Plan Assessment and plan: Patient is a 33 yo Azeri speaking woman with a history of kidney stones who presented to [facility] ED with flank pains, n/v. Patient was seen in Urologist's office, Dr. Méndez and was sent to ED for further evaluation. Patient was found to have large obstructing right UVJ stone for which she under cystoscopy followed by Ureteral shent placement. Pre-op temp was 103F per Op report. * CT abdomen and pelvis without contrast IMPRESSION: Large obstructing stone at the right UVJ as described. Punctate bilateral renal calyceal stones. Hepatomegaly with diffuse fatty infiltration. Cholelithiasis. * Cysto Date of procedure: 07/16/18, Pre-op diagnosis: cysto stetn rpg ureteral stoen temp 103, Post-op diagnosis: same, Findings: pus r kidney, Procedure: cayto stent, Anesthesia: MAC, Surgeon: GEORGINA MÉNDEZ * IR, Dr. Perez: Successful ureteral stent placement. If was unsuccessful, would have placed a percutaneous nephrostomy tube. No further need since ureteral stent successfully placed. -Sepsis E. Faecalis UTI from Nephrolithiasis s/p Ureteral shent placement on 07/16/18: treat with abx, tylenol and IVF, follow up urine ctx -Complicated Pyelonephritis due to obstructive uropathy: consulted ID -Obstuctive Uropathy with Hydronephrosis with renal calculous obstruction: Urology is following -Urinary tract infection complicated: treat with IV abx, follow urine culture -Cholelithiasis, Incidental finding on the CT of the abdomen, Patient was informed so that she can follow up with her PCP -Obesity, bmi 33.6: university counselor on lifestyle modifications DVT prophylaxis reviewed Last documented fever was 07/18/18 @ 1520, 101'F, await ID final Recommendation. History Interval history: Electric Furnace Operator Services offered, but daughter at bedside was the Electronic Test Technician Patient was seen and examined. Follow-up on current diagnosis of abd pain/n/v and infected kidney stone. Overnight eventful with fevers. Patient denies any chest pain, shortness breath or severe headaches. Imaging, nursing note, chart, labs and old chart reviewed. Discussed with patient. at bedside Hospitalist Physical - Physical exam Narrative exam: Gen: WDWN, NAD, Awake, Alert, Orientated HEENT: NCAT, EOMI, PERRL, OP Clear Neck: supple, no adenopathy, no thyromegaly, no JVD CVS/Heart: RRR, normal S1S2, pulses present bilaterally Chest/Lungs: CTA B, Symmetrical chest expansion, good air entry bilaterally GI/Abdomen: soft, NTND, good bowel sounds, no guarding or rebound /Bladder: no suprapubic tenderness, no CVA or paraspinal tenderness Extermity/Skin: no c/c/e, no obvious rash MSK: FROM x 4 Neuro: CN 2-12 grossly intact, no new focal deficits Psych: calm - Constitutional Vitals: Temp Pulse Resp BP Pulse Ox 98.1 F 61 18 110/70 100 07/20/18 11:38 07/20/18 11:38 07/20/18 11:38 07/20/18 11:38 07/20/18 11:38 General appearance: Present: no acute distress, well-nourished Results - Labs CBC & Chem 7: 07/20/18 05:00 07/20/18 05:00 Labs: Laboratory Last Values WBC 5.3 K/mm3 (4.5-11.0) 07/20/18 05:00 RBC 4.30 M/mm3 (3.65-5.03) 07/20/18 05:00 Hgb 11.9 gm/dl (10.1-14.3) 07/20/18 05:00 Hct 36.1 % (30.3-42.9) 07/20/18 05:00 MCV 84 fl (79-97) 07/20/18 05:00 MCH 28 pg (28-32) 07/20/18 05:00 MCHC 33 % (30-34) 07/20/18 05:00 RDW 13.2 % (13.2-15.2) 07/20/18 05:00 Plt Count 167 K/mm3 (140-440) 07/20/18 05:00 Lymph % (Auto) 9.6 % (13.4-35.0) L 07/17/18 05:59 [place] % (Auto) 5.9 % (0.0-7.3) 07/17/18 05:59 Eos % (Auto) 0.0 % (0.0-4.3) 07/17/18 05:59 Baso % (Auto) 0.3 % (0.0-1.8) 07/17/18 05:59 Lymph # 1.1 K/mm3 (1.2-5.4) L 07/17/18 05:59 [place] # 0.6 K/mm3 (0.0-0.8) 07/17/18 05:59 Eos # 0.0 K/mm3 (0.0-0.4) 07/17/18 05:59 Baso # 0.0 K/mm3 (0.0-0.1) 07/17/18 05:59 Seg Neutrophils % 84.2 % (40.0-70.0) H 07/17/18 05:59 Seg Neutrophils # 9.3 K/mm3 (1.8-7.7) H 07/17/18 05:59 Sodium 139 mmol/L (137-145) 07/20/18 05:00 Potassium 3.2 mmol/L (3.6-5.0) L 07/20/18 05:00 Chloride 100.9 mmol/L (98-107) 07/20/18 05:00 Carbon Dioxide 27 mmol/L (22-30) 07/20/18 05:00 Anion Gap 14 mmol/L 07/20/18 05:00 BUN 7 mg/dL (7-17) 07/20/18 05:00 Creatinine 0.6 mg/dL (0.7-1.2) L 07/20/18 05:00 Estimated GFR > 60 ml/min 07/20/18 05:00 BUN/Creatinine Ratio 12 % 07/20/18 05:00 Glucose 108 mg/dL (65-100) H 07/20/18 05:00 Hemoglobin A1c 6.5 % (4-6) H 07/16/18 18:22 Calcium 8.2 mg/dL (8.4-10.2) L 07/20/18 05:00 Total Bilirubin 0.80 mg/dL (0.1-1.2) 07/17/18 05:59 Direct Bilirubin 0.3 mg/dL (0-0.2) H 07/16/18 11:44 Indirect Bilirubin 1.1 mg/dL 07/16/18 11:44 AST 15 units/L (5-40) 07/17/18 05:59 ALT 45 units/L (7-56) 07/17/18 05:59 Alkaline Phosphatase 53 units/L (35-129) 07/17/18 05:59 Total Protein 5.6 g/dL (6.3-8.2) L 07/17/18 05:59 Albumin 3.4 g/dL (3.9-5) L 07/17/18 05:59 Albumin/Globulin Ratio 1.5 % 07/17/18 05:59 Lipase 30 units/L (13-60) 07/16/18 11:44 HCG, Qual Negative (Negative) 07/16/18 11:44 Urine Color Yellow (Yellow) 07/16/18 11:50 Urine Turbidity Slightly-cloudy (Clear) 07/16/18 11:50 Urine pH 6.0 (5.0-7.0) 07/16/18 11:50 Ur Specific Kirk 1.020 (1.003-1.030) 07/16/18 11:50 Urine Protein <15 mg/dl mg/dL (Negative) 07/16/18 11:50 Urine Glucose (UA) Neg mg/dL (Negative) 07/16/18 11:50 Urine Ketones Neg mg/dL (Negative) 07/16/18 11:50 Urine Blood Sm (Negative) 07/16/18 11:50 Urine Nitrite Neg (Negative) 07/16/18 11:50 Urine Bilirubin Neg (Negative) 07/16/18 11:50 Urine Urobilinogen < 2.0 mg/dL (<2.0) 07/16/18 11:50 Ur Leukocyte Esterase Mod (Negative) 07/16/18 11:50 Urine WBC (Auto) 25.0 /HPF (0.0-6.0) H 07/16/18 11:50 Urine RBC (Auto) 1.0 /HPF (0.0-6.0) 07/16/18 11:50 U Epithel Cells (Auto) 8.0 /HPF (0-13.0) 07/16/18 11:50 Urine Bacteria (Auto) 1+ /HPF (Negative) 07/16/18 11:50 Urine Mucus 2+ /HPF 07/16/18 11:50
[2018-07-20] MEDS ORDERED: K-DUR PO ONE (13:28)
[2018-07-20] MEDS: LOVENOX SUB-Q SCH (21:29)
[2018-07-20] MEDS: NACL 0.9% 1000 ML 1,000 ML IV SCH (23:33)
[2018-07-21] MEDS: UNASYN/NS 3 GM/100 ML 3 GM/100 ML BAG IV SCH (05:53)
[2018-07-21 07:35] LABS: Hematocrit 36.7 % (30.3-42.9); Hemoglobin 12.2 gm/dl (10.1-14.3); Mean Corpuscular HGB Conc 33 % (30-34); Mean Corpuscular Volume 82 fl (79-97); Platelet Count 227 K/mm3 (140-440); Red Blood Count 4.47 M/mm3 (3.65-5.03); Red Cell Distribution Width 13.1 % (13.2-15.2)
[2018-07-21 08:01] LABS: BUN/Creatinine Ratio 18; Blood Urea Nitrogen 9 mg/dL (7-17); Calcium 8.5 mg/dL (8.4-10.2); Hemolysis Index 11
--- NOTE | 2018-07-21 09:49 | Progress Note ---
Assessment and Plan Cultures: 07/16/2018 urine culture E faecalis 07/18/2018 blood culture: no growth to date A/P: 33 y/o female with no medical history; admitted on 07/16/2018 due to 2 week-history of severe right flank pain associated with on-off chills and subjective fever, also c/o dysuria and mild hematuria: Sepsis: not present on admission with fever, tachycardia; likely due to complicated UTI, fever noted maily after stone removal procedure, patient skiped an fever at 103 on 07/17/2018. Complicated UTI: with large obstructive right kidney stone at the UVJ. Patient underwent retrograde pyelogram for stone removal and stent placement on 07/16/2018. Urine culture grew E faecalis. Elevated LFTs, mild: from sepsis vs GB pathology. ALT 67. Total bili 1.4. Recs: Continue unasyn - E faecalis sensitive to penicillin Monitor fever Ok to discharge from ID standpoint, Amoxicillin 500mg, PO Q8H for 7 days [facility] M: [phone] O:[phone] Subjective Date of service: 07/21/18 Interval history: patient seen and examined. Primary language Palauan, interpretation via family member. Stated that she was feeling better today. Objective - Exam Narrative Exam: Constitutional: Alert, cooperative. in NAD Head, Ears, Nose: Normocephalic, atraumatic. External ears, nose normal Eyes: Conjunctivae/corneas clear. No icterus. No ptosis. Neck: Supple, no meningeal signs Oral: dentition poor no thrush Cardiovascular: RRR Respiratory: CTAB GI: Soft, non-tender; bowel sounds normal. +Right CVT Musculoskeletal: No pedal edema, no cyanosis. Skin: No rash or abscess. Hem/Lymphatic: No palpable cervical or supraclavicular nodes. No lymphangitis Psych: Mood ok. Affect normal Neurological: Awake, alert, oriented. - Constitutional Vitals: Vital Signs Temp Pulse Resp BP Pulse Ox 98.5 F 78 14 95/51 95 07/21/18 07:54 07/21/18 07:55 07/21/18 07:54 07/21/18 07:54 07/21/18 07:55 Temperature -Last 24 Hours Temperature 98.5 F Temperature 98.4 F Temperature 98.6 F Temperature 98.7 F Temperature 98.5 F Temperature 98.1 F - Labs CBC & Chem 7: 07/21/18 07:01 07/21/18 07:01 Labs: Abnormal lab results 07/21/18 07/21/18 Range/Units 07:01 07:01 MCH 27 L (28-32) pg RDW 13.1 L (13.2-15.2) % Potassium 3.3 L (3.6-5.0) mmol/L Creatinine 0.5 L (0.7-1.2) mg/dL Glucose 114 H (65-100) mg/dL
[2018-07-21] MEDS ORDERED: K-DUR PO ONE (10:00)
[2018-07-21] MEDS: PEPCID IV SCH (10:13)
[2018-07-21] MEDS: SODIUM CHLORIDE FLUSH SYRINGE 10 ML IV SCH (10:14)
[2018-07-21] MEDS: NACL 0.9% 1000 ML 1,000 ML IV SCH (10:25)
--- NOTE | 2018-07-21 12:22 | Discharge Summary ---
Providers - Providers Date of Admission: 07/16/18 18:04 Date of discharge: 07/21/18 Attending physician: TERRY PEREZ 07/16/18 17:18 Consult to Physician [CONS] Urgent Comment: Consulting Provider: SHANKAR MALDONADO Physician Instructions: Reason For Exam: sepsis 07/16/18 18:04 Consult to Physician [CONS] Routine Comment: Consulting Provider: GEORGINA BREWSTER Physician Instructions: Reason For Exam: Ureteral stone 07/18/18 16:07 Consult to Physician [CONS] Routine Comment: Consulting Provider: ALAYNA SHAHID Physician Instructions: I notified Reason For Exam: sepsis from infected stone Primary care physician: PLUGGER Hospitalization Condition: Stable Hospital course: Patient is a 33 yo Kiswahili speaking woman with a history of kidney stones who presented to [facility] ED with flank pains, n/v. Patient was seen in Urologist's office, Dr. Brewster and was sent to ED for further evaluation. Patient was fou nd to have large obstructing right UVJ stone for which she under cystoscopy followed by Ureteral shent placement. Pre-op temp was 103F per Op report. * CT abdomen and pelvis without contrast IMPRESSION: Large obstructing stone at the right UVJ as described. Punctate bilateral renal calyceal stones. Hepatomegaly with diffuse fatty infiltration. Cholelithiasis. * Cysto Date of procedure: 07/16/18, Pre-op diagnosis: cysto stetn rpg ureteral stoen temp 103, Post-op diagnosis: same, Findings: pus r kidney, Procedure: cayto stent, Anesthesia: MAC, Surgeon: GEORGINA BREWSTER * IR, Dr. Perez: Successful ureteral stent placement. If was unsuccessful, would have placed a percutaneous nephrostomy tube. No further need since ureteral stent successfully placed. -Sepsis E. Faecalis UTI from Nephrolithiasis s/p Ureteral shent placement on 07/16/18: treat with abx, tylenol and IVF, follow up urine ctx -Complicated Pyelonephritis due to obstructive uropathy: consulted ID -Obstuctive Uropathy with Hydronephrosis with renal calculous obstruction: Urology is following -Urinary tract infection complicated: treat with IV abx, follow urine culture -Cholelithiasis, Incidental finding on the CT of the abdomen, Patient was informed so that she can follow up with her PCP -Obesity, bmi 33.6: counseling services director on lifestyle modifications DVT prophylaxis reviewed Last documented fever was 07/18/18 @ 1520, 101F, Disposition: DC-01 TO HOME OR SELFCARE Time spent for discharge: 35 minutes Core Measure Documentation - Palliative Care Palliative Care/ Comfort Measures: Not Applicable - Core Measures Any of the following diagnoses?: none - VTE Discharge Requirements Deep Vein Thrombosis/Pulmonary Embolism Present on Admission: No Has pt received <5 days of overlap therapy or INR<2.0: No Anticoagulant overlap therapy prescribed at discharge: No Contraindication No Overlap Therapy order at DC: Not Indicated Exam - Physical Exam Narrative exam: Gen: WDWN, NAD, Awake, Alert, Orientated HEENT: NCAT, EOMI, PERRL, OP Clear Neck: supple, no adenopathy, no thyromegaly, no JVD CVS/Heart: RRR, normal S1S2, pulses present bilaterally Chest/Lungs: CTA B, Symmetrical chest expansion, good air entry bilaterally GI/Abdomen: soft, NTND, good bowel sounds, no guarding or rebound /Bladder: no suprapubic tenderness, no CVA or paraspinal tenderness Extermity/Skin: no c/c/e, no obvious rash MSK: FROM x 4 Neuro: CN 2-12 grossly intact, no new focal deficits Psych: calm - Constitutional Vitals: Temp Pulse Resp BP Pulse Ox 98.5 F 78 14 95/51 95 07/21/18 07:54 07/21/18 07:55 07/21/18 07:54 07/21/18 07:54 07/21/18 07:55 Plan Activity: other (no strenous activity unless cleared by Urology) Diet: regular Follow up with: REJI PARRA MD [Primary Care Provider] - 3-5 Days GEORGINA BREWSTER MD [Staff Physician] - 7 Days ALAYNA SHAHID MD [Staff Physician] - 10 Days Prescriptions: Amoxicillin 500 mg PO TID 7 Days #21 capsule Oxycodone HCl/Acetaminophen [Percocet 10/325 mg] 1 each PO Q6HR PRN #25 tablet PRN Reason: Pain , Severe (7-10)
[2018-07-21] MEDS: DILAUDID IV PRN (12:33)
[2018-07-21 17:17] VITALS: BP 114/50
== END 2018-07-21 17:40 | disposition home or self-care (01) | DRG 659 ==
LOC: ED 11:10 → 3B-SURG 18:04
PROVIDERS: ADMIT Internal Medicine; ATTEND Internal Medicine
PROC: BT1D1ZZ Fluoroscopy of Right Kidney, Ureter and Bladder using Low Osmolar Contrast (ICD-10-PCS; principal; 2018-07-16)
PROC: 0T768DZ Dilation of Right Ureter with Intraluminal Device, Via Natural or Artificial Opening Endoscopic (ICD-10-PCS; 2018-07-16)
PROC: 0TC68ZZ Extirpation of Matter from Right Ureter, Via Natural or Artificial Opening Endoscopic (ICD-10-PCS; 2018-07-16)
DX: N13.6 Pyonephrosis (principal); A41.9 Sepsis, unspecified organism; K80.20 Calculus of gallbladder without cholecystitis without obstruction; E86.0 Dehydration; E66.9 Obesity, unspecified; Z87.442 Personal history of urinary calculi; Z68.34 Body mass index [BMI] 34.0-34.9, adult; Z71.3 Dietary counseling and surveillance
CPT/HCPCS: 36415; 74176; 74420; 80048; 80053; 80076; 81001; 83036; 83690; 84703; 85025; 85027; 87040; 87086; 87186; G0378; C1758; C1769; C2617; J0295; J0696; J1100; J1170; J1650; J1885; J2001; J2250; J2270; J2405; J2543; J2704; J3010; J7030; J7040; J7042; Q9967

== ENCOUNTER 2018-08-17 10:11 | Emergency (ER) | payer SELFPAY ==
[2018-08-17 11:30] VITALS: BP 103/60
--- NOTE | 2018-08-17 11:33 | Emergency Department Report ---
Blank Doc - Documentation Documentation: This is a 33-year-old female that present with abdominal pain with nausea and vomiting. Patient is scheduled for procedure today with Dr. Méndez for kidney stones. Patient denies any other complaints. Alice present for translation. This initial assessment diagnostic orders/clinical plan/treatment(s) is/are subject to change based on patient's health status, clinical progression and re- assessment by fellow clinical providers in the ED. Further treatment and workup at subsequent clinical providers discretion. Patient/guardians urged not to elope from ED s their condition may be serious if not clinically assessed and managed. Initial orders include: 1- Patient sent to MAIN ED for further evaluation and treatment 2- Labs 3- UA
== END 2018-08-17 12:08 | disposition admitted as inpatient to this hospital (09) ==
LOC: ED 10:11
DX: N20.0 Calculus of kidney (principal); Z53.21 Procedure and treatment not carried out due to patient leaving prior to being seen by health care provider

== ENCOUNTER 2018-08-17 13:14 | Day surgery (SDC) | payer SELFPAY | END 2018-08-17 13:15 | disposition home or self-care (01) | LOC: OR 13:14 | PROVIDERS: ATTEND Urology | DX: N20.0 Calculus of kidney (principal); Z53.8 Procedure and treatment not carried out for other reasons ==

== ENCOUNTER 2018-08-18 09:34 | Day surgery (SDC) | payer OTHER, SELFPAY ==
[2018-08-18] MEDS ORDERED: ANCEF/STERILE WATER 2 GM/20 ML IV NR (10:25)
[2018-08-18] MEDS ORDERED: LACTATED RINGERS 1,000 ML IV SCH (10:25)
[2018-08-18] MEDS ORDERED: SUBLIMAZE IV ONE (11:03)
[2018-08-18] MEDS ORDERED: PEPCID IV NR (11:04)
[2018-08-18] MEDS ORDERED: ZOFRAN IV NR (11:04)
[2018-08-18] MEDS ORDERED: XYLOCAINE MPF 2% ONE (11:32)
[2018-08-18] MEDS ORDERED: SUBLIMAZE ONE (11:32)
[2018-08-18] MEDS ORDERED: DIPRIVAN 10 MG/ML IV ONE (11:32)
[2018-08-18] MEDS ORDERED: VERSED IV SCH (12:00)
[2018-08-18] MEDS ORDERED: WATER FOR IRRIG STERILE IR ONE (12:05)
[2018-08-18] MEDS ORDERED: BENADRYL ONE (13:00)
[2018-08-18] MEDS ORDERED: DECADRON ONE (13:00)
--- NOTE | 2018-08-18 13:05 | Post Operative Note ---
Date of procedure: 08/18/18 Pre-op diagnosis: r ureteral stone Post-op diagnosis: same Findings: as above Procedure: cysto laser ureteroscopy Anesthesia: COURTNEYA Surgeon: GEORGINA BREWSTER Estimated blood loss: none Pathology: list (stone) Specimen disposition: given to patient/family Condition: stable Disposition: PACU
--- NOTE | 2018-08-18 13:06 | Discharge Summary ---
Short Stay Discharge Plan Activity: other (no straining ) Weight Bearing Status: Full Weight Bearing Diet: regular Special Instructions: other (do not pull string ) Durable Medical Equipment Needed Upon Discharge: other (j stent ) [facility] [Primary Care Provider] - 7 Days GEORGINA BREWSTER MD [Staff Physician] - 7 Days
[2018-08-18] MEDS ORDERED: DEMEROL IV PRN (13:18)
[2018-08-18] MEDS ORDERED: SUBLIMAZE IV PRN (13:19)
--- NOTE | 2018-08-18 13:48 | Operative Report ---
PREOPERATIVE DIAGNOSIS: Large right distal ureteral stone, 1 cm. POSTOPERATIVE DIAGNOSIS: Large right distal ureteral stone, 1 cm. PROCEDURE: Cystoscopy, right ureteral balloon dilatation, right retrograde laser of large stone with extraction of fragments. SURGEON: Fazal Méndez MD ANESTHESIA: General. FINDINGS: This is a woman with a very large stone, previous sepsis, now presents for stone extraction. DESCRIPTION OF PROCEDURE: The patient brought to the operating room and placed on the operating table. Following induction of anesthesia, placed in the lithotomy position, prepped and draped in usual sterile fashion. At this point, cystourethroscopy was carried out. Stone was distal. She had a cystocele as well. The ureteroscope was very tight there, so we placed a wire and balloon dilatation was carried out. We could not put a wire through the stent because it was all clogged with debris. At this point, a wire was intact. The balloon dilatation was carried out. The stone was well seen, but it was too big to extract. Using the laser from 8-10 barker, that was extracted into about 4 or 5 pieces and the stones were extracted into the bladder and given to the patient in a test tube. The patient tolerated the procedure well. Retrograde showed mild hydronephrosis which drained with a stent. We left the string, coiled in the kidney and bladder. The patient tolerated the procedure well and brought to recovery in stable condition. JOB# [id number] BEBE/MOISE
[2018-08-18] MEDS ORDERED: PERCOCET 5/325 PO PRN (14:29)
[2018-08-18 15:41] VITALS: BP 116/74
--- NOTE | 2018-08-19 07:52 | Fluoroscopy Report ---
FLUORO RETROGRADE UROGRAPHY FLUORO URETER/NEPHROSTOMY DILATATION RIGHT INDICATION: Right ureteral stone. COMPARISON: 07/16/2018. IMAGES/CINE CLIPS: 11+2 FINDINGS: Procedure performed by Dr. Méndez. Omnipaque 300 utilized. Initial rail layer radiographs obtained at 12:01 PM, 08/18/2018 again demonstrates right double-J ureteral stent in place. Stool seen throughout colon/possible constipation. Subsequent images demonstrate stent removal and a right ureteral wire in place. Cystoscopy and right ureteroscopy visualizes the stone that is broken up with laser and extracted with graspers. Balloon dilatation of the right ureter also performed. Subsequent right retrograde pyelogram again demonstrates right hydronephrosis. Few filling defects along the right distal ureter presumed air bubbles. Final image demonstrates a new right double-J ureteral stent satisfactorily repositioned. CONCLUSION: Intraoperative fluoroscopic assistance provided for right ureteroscopy, lithotripsy and stone removal, retrograde pyelogram, right balloon dilatation, and stent removal and replacement, as described. Please correlate. Thank you for the opportunity to participate in this patient's care.
--- NOTE | 2018-08-19 08:10 | Fluoroscopy Report ---
FLUORO RETROGRADE UROGRAPHY FLUORO URETER/NEPHROSTOMY DILATATION RIGHT INDICATION: Right ureteral stone. COMPARISON: 07/16/2018. IMAGES/CINE CLIPS: 11+2 FINDINGS: Procedure performed by Dr. Méndez. Omnipaque 300 utilized. Initial extractor machine operator radiographs obtained at 12:01 PM, 08/18/2018 again demonstrates right double-J ureteral stent in place. Stool seen throughout colon/possible constipation. Subsequent images demonstrate stent removal and a right ureteral wire in place. Cystoscopy and right ureteroscopy visualizes the stone that is broken up with laser and extracted with graspers. Balloon dilatation of the right ureter also performed. Subsequent right retrograde pyelogram again demonstrates right hydronephrosis. Few filling defects along the right distal ureter presumed air bubbles. Final image demonstrates a new right double-J ureteral stent satisfactorily repositioned. CONCLUSION: Intraoperative fluoroscopic assistance provided for right ureteroscopy, lithotripsy and stone removal, retrograde pyelogram, right balloon dilatation, and stent removal and replacement, as described. Please correlate. Thank you for the opportunity to participate in this patient's care.
== END 2018-08-18 15:30 | disposition home or self-care (01) ==
LOC: ED 09:34 → OR 10:02
PROVIDERS: ATTEND Urology
DX: N13.2 Hydronephrosis with renal and ureteral calculous obstruction (principal); E66.9 Obesity, unspecified; Z68.32 Body mass index [BMI] 32.0-32.9, adult; Z79.899 Other long term (current) drug therapy; Z87.440 Personal history of urinary (tract) infections
CPT/HCPCS: 52353; 74420; 74485; 81025; A4217; C1726; C1758; C1769; C2617; J0690; J1100; J1200; J2175; J2250; J2405; J2704; J3010; J7120; Q9967

== ENCOUNTER 2018-08-20 07:46 | Inpatient (IN) | payer OTHER, SELFPAY ==
[2018-08-20] MEDS ORDERED: NACL 0.9% 500 ML 500 ML IV ONE ×2 (07:50→22:53)
[2018-08-20] MEDS ORDERED: MAXIPIME/NS 1 GM/100 ML 1 GM/100 ML BAG IV ONE (07:58)
[2018-08-20] MEDS ORDERED: NACL 0.9% 1000 ML IV ONE (07:58)
[2018-08-20] MEDS ORDERED: NACL 0.9% 1000 ML 2,000 ML ONE (08:06)
--- NOTE | 2018-08-20 08:22 | XRay Report ---
AP CHEST: HISTORY: Possible sepsis AP view of the chest demonstrates a normal mediastinal and cardiac contour with clear lungs and normal bony and soft tissue structures. IMPRESSION: Unremarkable AP chest.
[2018-08-20] MEDS ORDERED: MORPHINE ONE (08:25)
[2018-08-20] MEDS ORDERED: ZOFRAN ONE (08:25)
[2018-08-20] MEDS ORDERED: ZOFRAN IV ONE (08:28)
[2018-08-20] MEDS ORDERED: MORPHINE IV ONE (08:30)
[2018-08-20] MEDS ORDERED: TYLENOL PO ONE (08:30)
[2018-08-20] MEDS ORDERED: TYLENOL ONE (08:31)
[2018-08-20 08:35] LABS: Basophils % (Auto) 0.3 % (0.0-1.8); Eosinophils % (Auto) 0.4 % (0.0-4.3); Hematocrit 41.2 % (30.3-42.9); Hemoglobin 13.6 gm/dl (10.1-14.3); Lymphocytes % (Auto) 14.3 % (13.4-35.0); Mean Corpuscular HGB Conc 33 % (30-34); Mean Corpuscular Volume 82 fl (79-97); Monocytes # (Auto) 0.2 K/mm3 (0.0-0.8); Monocytes % (Auto) 2.9 % (0.0-7.3); Platelet Count 213 K/mm3 (140-440); Red Cell Distribution Width 13.6 % (13.2-15.2)
[2018-08-20 08:48] LABS: INR 0.91 (0.87-1.13)
--- NOTE | 2018-08-20 09:05 | Emergency Department Report ---
ED General Adult HPI - General Chief complaint: Urogenital-Female Stated complaint: PAIN AFTER SURGERY Time Seen by Provider: 08/20/18 08:05 Source: family Mode of arrival: Wheelchair Limitations: Language Barrier - History of Present Illness Initial comments: The patient presents to emergency department with chief complaint of right flank pain along with nausea, vomiting and fever. The patient is not Japanese speaking but her daughter translates for her. The patient had a renal procedure done last week and was doing fine until a couple days ago. Patient denies chest pain, status post breath, or headache. -: Gradual Location: abdomen (right flank pain) Radiation: non-radiation Severity scale (0 -10): 7 Quality: sharp, constant Consistency: constant Improves with: none Worsens with: none Associated Symptoms: fever/chills, nausea/vomiting Treatments Prior to Arrival: none - Related Data Home Medications Medication Instructions Recorded Confirmed Last Taken Amoxicillin [Trimox CAP] 500 mg PO TID 08/20/18 08/20/18 Unknown HYDROcodone/APAP 10-325 [[place] 1 each PO Q6HR PRN 08/20/18 08/20/18 Unknown 10/325] Ondansetron [Zofran TAB] 4 mg PO Q8HR PRN 08/20/18 08/20/18 Unknown Previous Rx's Medication Instructions Recorded Last Taken Type Acetaminophen [Acetaminophen TAB] 650 mg PO Q4H PRN #15 tablet 07/21/18 08/17/18 Rx Allergies Allergy/AdvReac Type Severity Reaction Status Date / Time No Known Allergies Allergy Verified 08/20/18 07:47 ED Review of Systems ROS: Stated complaint: PAIN AFTER SURGERY Other details as noted in HPI Comment: All other systems reviewed and negative Constitutional: denies: chills, fever Eyes: denies: eye pain, eye discharge, vision change ENT: denies: ear pain, throat pain Respiratory: denies: cough, shortness of breath, wheezing Cardiovascular: denies: chest pain, palpitations Endocrine: no symptoms reported Gastrointestinal: abdominal pain. denies: nausea, diarrhea Genitourinary: denies: urgency, dysuria, discharge Musculoskeletal: denies: back pain, joint swelling, arthralgia Skin: denies: rash, lesions Neurological: denies: headache, weakness, paresthesias Psychiatric: denies: anxiety, depression Hematological/Lymphatic: denies: easy bleeding, easy bruising ED Past Medical Hx - Past Medical History Hx Hypertension: No Hx Congestive Heart Failure: No Hx Diabetes: No Hx Deep Vein Thrombosis: No Hx Renal Disease: No Hx Sickle Cell Disease: No Hx Seizures: No Hx Kidney Stones: Yes Hx Asthma: No Hx COPD: No Hx HIV: No Additional medical history: kidney stones - Social History Smoking Status: Never Smoker - Medications Home Medications: Home Medications Medication Instructions Recorded Confirmed Last Taken Type Acetaminophen [Acetaminophen TAB] 650 mg PO Q4H PRN #15 tablet 07/21/18 08/20/18 08/17/18 Rx Amoxicillin [Trimox CAP] 500 mg PO TID 08/20/18 08/20/18 Unknown History HYDROcodone/APAP 10-325 [[place] 1 each PO Q6HR PRN 08/20/18 08/20/18 Unknown History 10/325] Ondansetron [Zofran TAB] 4 mg PO Q8HR PRN 08/20/18 08/20/18 Unknown History ED Physical Exam - General Limitations: Language Barrier General appearance: alert, in no apparent distress - Head Head exam: Present: atraumatic, normocephalic - Eye Eye exam: Present: normal appearance, PERRL, EOMI - ENT ENT exam: Present: mucous membranes dry - Neck Neck exam: Present: normal inspection - Respiratory Respiratory exam: Present: normal lung sounds bilaterally. Absent: respiratory distress, wheezes, rales - Cardiovascular Cardiovascular Exam: Present: normal rhythm, tachycardia. Absent: systolic murmur, diastolic murmur, rubs, gallop - GI/Abdominal GI/Abdominal exam: Present: soft, tenderness (tenderness to palpation right CVA), normal bowel sounds. Absent: distended - Extremities Exam Extremities exam: Present: normal inspection - Back Exam Back exam: Present: normal inspection - Neurological Exam Neurological exam: Present: alert, oriented X3, CN II-XII intact. Absent: motor sensory deficit - Psychiatric Psychiatric exam: Present: normal affect, normal mood - Skin Skin exam: Present: warm, dry, intact, normal color. Absent: rash ED Course Vital Signs 08/20/18 08/20/18 08/20/18 07:48 07:55 08:00 Temperature 103 F H Pulse Rate 134 H 110 H 111 H Respiratory 32 H 13 18 Rate Blood Pressure 108/70 Blood Pressure 133/68 [Left] O2 Sat by Pulse 100 100 Oximetry 08/20/18 08/20/18 08/20/18 08:15 08:30 08:32 Temperature Pulse Rate 97 H 102 H Respiratory 16 15 18 Rate Blood Pressure 102/58 99/58 Blood Pressure [Left] O2 Sat by Pulse 98 98 Oximetry 08/20/18 08/20/18 08/20/18 08:45 09:00 09:18 Temperature Pulse Rate 100 H 101 H Respiratory 13 19 Rate Blood Pressure 109/55 109/55 102/45 Blood Pressure [Left] O2 Sat by Pulse 98 98 99 Oximetry 08/20/18 08/20/18 08/20/18 09:30 09:45 10:00 Temperature Pulse Rate 97 H 94 H 101 H Respiratory 25 H 26 H 26 H Rate Blood Pressure 98/54 96/54 96/54 Blood Pressure [Left] O2 Sat by Pulse 98 99 96 Oximetry 08/20/18 08/20/18 08/20/18 10:15 10:30 10:45 Temperature Pulse Rate 101 H 98 H 97 H Respiratory 25 H 24 24 Rate Blood Pressure 88/49 93/47 89/46 Blood Pressure [Left] O2 Sat by Pulse 96 96 97 Oximetry 08/20/18 08/20/18 08/20/18 11:00 11:15 11:38 Temperature Pulse Rate 97 H 96 H 94 H Respiratory 23 14 23 Rate Blood Pressure 89/47 95/50 95/50 Blood Pressure [Left] O2 Sat by Pulse 97 97 97 Oximetry 08/20/18 08/20/18 11:46 12:00 Temperature Pulse Rate 101 H 89 Respiratory 24 21 Rate Blood Pressure 80/33 80/33 Blood Pressure [Left] O2 Sat by Pulse 97 99 Oximetry ED Medical Decision Making - Lab Data Result diagrams: 08/20/18 07:55 08/20/18 07:55 Lab Results 08/20/18 08/20/18 08/20/18 Range/Units 07:55 07:55 07:55 WBC 6.9 (4.5-11.0) K/mm3 RBC 5.00 (3.65-5.03) M/mm3 Hgb 13.6 (10.1-14.3) gm/dl Hct 41.2 (30.3-42.9) % MCV 82 (79-97) fl MCH 27 L (28-32) pg MCHC 33 (30-34) % RDW 13.6 (13.2-15.2) % Plt Count 213 (140-440) K/mm3 Lymph % (Auto) 14.3 (13.4-35.0) % [place] % (Auto) 2.9 (0.0-7.3) % Eos % (Auto) 0.4 (0.0-4.3) % Baso % (Auto) 0.3 (0.0-1.8) % Lymph # 1.0 L (1.2-5.4) K/mm3 [place] # 0.2 (0.0-0.8) K/mm3 Eos # 0.0 (0.0-0.4) K/mm3 Baso # 0.0 (0.0-0.1) K/mm3 Seg Neutrophils % 82.1 H (40.0-70.0) % Seg Neutrophils # 5.7 (1.8-7.7) K/mm3 PT 12.8 (12.2-14.9) Sec. INR 0.91 (0.87-1.13) VBG pH (7.320-7.420) Sodium 134 L (137-145) mmol/L Potassium 4.1 (3.6-5.0) mmol/L Chloride 96.1 L (98-107) mmol/L Carbon Dioxide 23 (22-30) mmol/L Anion Gap 19 mmol/L BUN 9 (7-17) mg/dL Creatinine 0.6 L (0.7-1.2) mg/dL Estimated GFR > 60 ml/min BUN/Creatinine Ratio 15 % Glucose 105 H (65-100) mg/dL Lactic Acid (0.7-2.0) mmol/L Calcium 9.1 (8.4-10.2) mg/dL Total Bilirubin 1.40 H (0.1-1.2) mg/dL AST 21 (5-40) units/L ALT 44 (7-56) units/L Alkaline Phosphatase 87 (35-129) units/L Total Protein 7.6 (6.3-8.2) g/dL Albumin 4.6 (3.9-5) g/dL Albumin/Globulin Ratio 1.5 % Urine Color (Yellow) Urine Turbidity (Clear) Urine pH (5.0-7.0) Ur Specific [place] (1.003-1.030) Urine Protein (Negative) mg/dL Urine Glucose (UA) (Negative) mg/dL Urine Ketones (Negative) mg/dL Urine Blood (Negative) Urine Nitrite (Negative) Urine Bilirubin (Negative) Urine Urobilinogen (<2.0) mg/dL Ur Leukocyte Esterase (Negative) Urine WBC (Auto) (0.0-6.0) /HPF Urine RBC (Auto) (0.0-6.0) /HPF U Epithel Cells (Auto) (0-13.0) /HPF Urine Bacteria (Auto) (Negative) /HPF Urine Mucus /HPF 08/20/18 08/20/18 08/20/18 Range/Units 07:55 07:55 09:25 WBC (4.5-11.0) K/mm3 RBC (3.65-5.03) M/mm3 Hgb (10.1-14.3) gm/dl Hct (30.3-42.9) % MCV (79-97) fl MCH (28-32) pg MCHC (30-34) % RDW (13.2-15.2) % Plt Count (140-440) K/mm3 Lymph % (Auto) (13.4-35.0) % [place] % (Auto) (0.0-7.3) % Eos % (Auto) (0.0-4.3) % Baso % (Auto) (0.0-1.8) % Lymph # (1.2-5.4) K/mm3 [place] # (0.0-0.8) K/mm3 Eos # (0.0-0.4) K/mm3 Baso # (0.0-0.1) K/mm3 Seg Neutrophils % (40.0-70.0) % Seg Neutrophils # (1.8-7.7) K/mm3 PT (12.2-14.9) Sec. INR (0.87-1.13) VBG pH 7.419 (7.320-7.420) Sodium (137-145) mmol/L Potassium (3.6-5.0) mmol/L Chloride (98-107) mmol/L Carbon Dioxide (22-30) mmol/L Anion Gap mmol/L BUN (7-17) mg/dL Creatinine (0.7-1.2) mg/dL Estimated GFR ml/min BUN/Creatinine Ratio % Glucose (65-100) mg/dL Lactic Acid 2.70 H* (0.7-2.0) mmol/L Calcium (8.4-10.2) mg/dL Total Bilirubin (0.1-1.2) mg/dL AST (5-40) units/L ALT (7-56) units/L Alkaline Phosphatase (35-129) units/L Total Protein (6.3-8.2) g/dL Albumin (3.9-5) g/dL Albumin/Globulin Ratio % Urine Color Straw (Yellow) Urine Turbidity Clear (Clear) Urine pH 6.0 (5.0-7.0) Ur Specific [place] 1.005 (1.003-1.030) Urine Protein <15 mg/dl (Negative) mg/dL Urine Glucose (UA) Neg (Negative) mg/dL Urine Ketones Neg (Negative) mg/dL Urine Blood Mod (Negative) Urine Nitrite Pos (Negative) Urine Bilirubin Neg (Negative) Urine Urobilinogen < 2.0 (<2.0) mg/dL Ur Leukocyte Esterase Mod (Negative) Urine WBC (Auto) 62.0 H (0.0-6.0) /HPF Urine RBC (Auto) 14.0 (0.0-6.0) /HPF U Epithel Cells (Auto) 1.0 (0-13.0) /HPF Urine Bacteria (Auto) 1+ (Negative) /HPF Urine Mucus Few /HPF 08/20/18 Range/Units 10:42 WBC (4.5-11.0) K/mm3 RBC (3.65-5.03) M/mm3 Hgb (10.1-14.3) gm/dl Hct (30.3-42.9) % MCV (79-97) fl MCH (28-32) pg MCHC (30-34) % RDW (13.2-15.2) % Plt Count (140-440) K/mm3 Lymph % (Auto) (13.4-35.0) % [place] % (Auto) (0.0-7.3) % Eos % (Auto) (0.0-4.3) % Baso % (Auto) (0.0-1.8) % Lymph # (1.2-5.4) K/mm3 [place] # (0.0-0.8) K/mm3 Eos # (0.0-0.4) K/mm3 Baso # (0.0-0.1) K/mm3 Seg Neutrophils % (40.0-70.0) % Seg Neutrophils # (1.8-7.7) K/mm3 PT (12.2-14.9) Sec. INR (0.87-1.13) VBG pH (7.320-7.420) Sodium (137-145) mmol/L Potassium (3.6-5.0) mmol/L Chloride (98-107) mmol/L Carbon Dioxide (22-30) mmol/L Anion Gap mmol/L BUN (7-17) mg/dL Creatinine (0.7-1.2) mg/dL Estimated GFR ml/min BUN/Creatinine Ratio % Glucose (65-100) mg/dL Lactic Acid 1.70 (0.7-2.0) mmol/L Calcium (8.4-10.2) mg/dL Total Bilirubin (0.1-1.2) mg/dL AST (5-40) units/L ALT (7-56) units/L Alkaline Phosphatase (35-129) units/L Total Protein (6.3-8.2) g/dL Albumin (3.9-5) g/dL Albumin/Globulin Ratio % Urine Color (Yellow) Urine Turbidity (Clear) Urine pH (5.0-7.0) Ur Specific [place] (1.003-1.030) Urine Protein (Negative) mg/dL Urine Glucose (UA) (Negative) mg/dL Urine Ketones (Negative) mg/dL Urine Blood (Negative) Urine Nitrite (Negative) Urine Bilirubin (Negative) Urine Urobilinogen (<2.0) mg/dL Ur Leukocyte Esterase (Negative) Urine WBC (Auto) (0.0-6.0) /HPF Urine RBC (Auto) (0.0-6.0) /HPF U Epithel Cells (Auto) (0-13.0) /HPF Urine Bacteria (Auto) (Negative) /HPF Urine Mucus /HPF - Radiology Data Radiology results: report reviewed Critical Care Time: Yes Critical care time in (mins) excluding proc time.: 45 Critical care attestation.: If time is entered above; I have spent that time in minutes in the direct care of this critically ill patient, excluding procedure time. ED Disposition Clinical Impression: Sepsis Disposition: DC-09 OP ADMIT IP TO THIS HOSP Is pt being admited?: Yes Does the pt Need Aspirin: No Condition: Fair Referrals: PRIMARY CARE, [Primary Care Provider] - 3-5 Days Time of Disposition: 12:32
[2018-08-20 09:27] LABS: Alanine Aminotransferase 44 units/L (7-56); Albumin 4.6 g/dL (3.9-5); BUN/Creatinine Ratio 15; Blood Urea Nitrogen 9 mg/dL (7-17); Calcium 9.1 mg/dL (8.4-10.2); Hemolysis Index 25
[2018-08-20 09:56] LABS: Bacteria,Urine 1+ /HPF (Negative); Bilirubin,Urine NEG (Negative); Blood,Urine MOD (Negative); Color,Urine Straw (Yellow); Mucus,Urine FEW /HPF; Protein,Urine <15 mg/dL mg/dL (Negative); Urobilinogen,Urine < 2.0 mg/dL (<2.0)
[2018-08-20] MEDS ORDERED: ZOSYN/NS 4.5GM/100ML 4.5 GM/100 ML VIAL IV ONE (11:14)
--- NOTE | 2018-08-20 12:28 | Cat Scan Report ---
FINAL REPORT EXAM: CT ABDOMEN PELVIS WO CON HISTORY: right flank pain TECHNIQUE: CT of the abdomen and pelvis was performed without intravenous contrast. Reconstructions were included in the coronal and sagittal planes. PRIORS: None. FINDINGS: Lower thorax: Patchy bibasilar opacities are seen. The visualized portions of the heart are normal. Liver: The liver is diffusely low in attenuation. The liver is enlarged measuring 18.8 centimeters. N o intrahepatic biliary duct dilation. No focal hepatic lesions. Gallbladder/ biliary system: Cholelithiasis is seen. No gallbladder wall thickening or pericholecysti c fluid. The common bile duct appears nondilated. Spleen: No splenic lesions are seen. Pancreas: No pancreatic lesions are seen. No pancreatic duct dilation. Kidneys: A right nephroureteral stent is present. There is moderate residual right hydroureteronephro sis. No ureteral calculus is seen. There is a nonobstructing 2 millimeter calculus in the interpolar region of the right kidney. No left renal or ureteral calculi. No left hydronephrosis. Adrenal glands: No adrenal masses. Vasculature: The abdominal aorta is nondilated. Lymph nodes: No enlarged lymph nodes are seen in the abdomen or pelvis. Bowel, mesentery, peritoneum: No bowel obstruction. No free fluid or free air. The appendix is normal . No colonic diverticulosis. No bowel wall thickening. Urinary bladder: Tiny amount of air within the urinary bladder is likely related to the stent placeme nt. No wall thickening. No urinary bladder calculi. Pelvis: Normal anatomy is noted. No masses. Abdominal wall: There is a small fat containing umbilical hernia. Bones: No acute or chronic osseous finding. IMPRESSION: 1. Moderate right hydroureteronephrosis with right nephroureteral stent in place. No ureteral calculu s. 2. Nonobstructing right renal calculus. 3. Hepatic steatosis and hepatomegaly. 4. Cholelithiasis. 5. Bibasilar pulmonary opacities may reflect atelectasis versus pneumonia.
--- NOTE | 2018-08-20 12:30 | History and Physical Report ---
History of Present Illness Chief complaint: My side hurts History of present illness: 33 YO Female with Nephrolithiasis presents to ED for evaluation. Pt states that she has experienced nausea, multiple episodes of vomiting, and fever and right side flank pain over the past 2 days with worsening symptoms over the same time frame. Pt is POD #2 S/P Cysto laser Ureteroscopy. Pt transported to [facility] for further care and evaluation. Pt seen and evaluated in ED and found to have UTI complicated by Sepsis. Pt was hypotensive with systolic BP in the 80's. Pt initiated on sepsis protocol and admitted to medical floor. Pt found to have Pt denies CP, Palpitations, Trauma, Skin rash, prolonged travel/immobility, leg swelling, calf pain, or recent ill contacts. Urology consulted in ED. Past History Past Medical History: other (Nephrolithiasis) Past Surgical History: Other (Laser uteroscopy) Social history: single. denies: smoking, alcohol abuse, prescription drug abuse Family history: no significant family history (reviewed) Medications and Allergies Allergies Allergy/AdvReac Type Severity Reaction Status Date / Time No Known Allergies Allergy Verified 08/20/18 07:47 Home Medications Medication Instructions Recorded Confirmed Last Taken Type Acetaminophen [Acetaminophen TAB] 650 mg PO Q4H PRN #15 tablet 07/21/18 08/20/18 08/17/18 Rx Amoxicillin [Trimox CAP] 500 mg PO TID 08/20/18 08/20/18 Unknown History HYDROcodone/APAP 10-325 [[address] 1 each PO Q6HR PRN 08/20/18 08/20/18 Unknown History 10/325] Ondansetron [Zofran TAB] 4 mg PO Q8HR PRN 08/20/18 08/20/18 Unknown History Review of Systems Constitutional: fever, no weight loss, no weight gain, no chills Ears, nose, mouth and throat: no ear pain, no ear discharge, no tinnitis, no decreased hearing, no nose pain Breasts: no change in shape, no swelling, no mass Cardiovascular: no chest pain, no orthopnea, no palpitations, no rapid/irregular heart beat Respiratory: no cough, no cough with sputum, no excessive sputum, no hemoptysis Gastrointestinal: abdominal pain, nausea, vomiting Genitourinary Female: flank pain, no dysuria, no urinary frequency, no urgency, no stress incontinence, no post void dribbling Rectal: no pain, no incontinence, no bleeding Musculoskeletal: no neck stiffness, no neck pain, no shooting arm pain, no arm numbness/tingling, no low back pain, no leg numbness/tingling Integumentary: no rash, no pruritis, no redness, no sores, no wounds Neurological: no head injury, no transient paralysis, no paralysis, no weakness, no parathesias, no numbness Psychiatric: no anxiety, no memory loss, no change in sleep habits, no sleep disturbances, no insomnia Endocrine: no cold intolerance, no heat intolerance, no polyphagia, no excessive thirst, no polydipsia, no nocturia Hematologic/Lymphatic: no easy bruising, no easy bleeding Allergic/Immunologic: no urticaria, no allergic rhinitis, no wheezing, no persistent infections Exam - Constitutional Vitals: Temp Pulse Resp BP Pulse Ox 103 F H 89 21 80/33 99 08/20/18 07:48 08/20/18 12:00 08/20/18 12:00 08/20/18 12:00 08/20/18 12:00 General appearance: Present: mild distress - EENT Eyes: Present: PERRL ENT: hearing intact, clear oral mucosa - Neck Neck: Present: supple, normal ROM - Respiratory Respiratory effort: normal Respiratory: bilateral: CTA - Cardiovascular Rhythm: other (tachycardia) Heart Sounds: Present: S1 & S2. Absent: rub, click - Extremities Extremities: pulses symmetrical, No edema Peripheral Pulses: abnormal (capillary refill greater than 3.5 seconds) - Abdominal General gastrointestinal: Present: soft, non-tender, non-distended, normal bowel sounds Female genitourinary: Present: normal - Integumentary Integumentary: Present: clear, warm, dry - Musculoskeletal Musculoskeletal: gait normal, strength equal bilaterally - Psychiatric Psychiatric: appropriate mood/affect, intact judgment & insight - Neurologic Neurologic: CNII-XII intact, moves all extremities Results - Labs CBC & Chem 7: 08/20/18 07:55 08/20/18 07:55 Labs: Abnormal lab results 08/20/18 08/20/18 08/20/18 Range/Units 07:55 07:55 07:55 MCH 27 L (28-32) pg Lymph # 1.0 L (1.2-5.4) K/mm3 Seg Neutrophils % 82.1 H (40.0-70.0) % Sodium 134 L (137-145) mmol/L Chloride 96.1 L (98-107) mmol/L Creatinine 0.6 L (0.7-1.2) mg/dL Glucose 105 H (65-100) mg/dL Lactic Acid 2.70 H* (0.7-2.0) mmol/L Total Bilirubin 1.40 H (0.1-1.2) mg/dL Urine WBC (Auto) (0.0-6.0) /HPF 08/20/18 Range/Units 09:25 MCH (28-32) pg Lymph # (1.2-5.4) K/mm3 Seg Neutrophils % (40.0-70.0) % Sodium (137-145) mmol/L Chloride (98-107) mmol/L Creatinine (0.7-1.2) mg/dL Glucose (65-100) mg/dL Lactic Acid (0.7-2.0) mmol/L Total Bilirubin (0.1-1.2) mg/dL Urine WBC (Auto) 62.0 H (0.0-6.0) /HPF Assessment and Plan - Patient Problems (1) Sepsis Current Visit: Yes Status: Acute Qualifiers: Sepsis type: sepsis due to unspecified organism Qualified Code(s): A41.9 - Sepsis, unspecified organism Plan to address problem: IV antibiotic therapy, IVF resuscitation therapy, urinalysis, blood cultures, chest x ray, cbc, cmp, monitor uop q shift, serial lactic acid level (2) UTI (urinary tract infection) Current Visit: No Status: Acute Qualifiers: Encounter type: initial encounter Plan to address problem: IV antibiotic therapy, urinalysis, cbc, cmp, (3) DVT prophylaxis Current Visit: No Status: Acute Plan to address problem: SCD to BLE while in bed
[2018-08-20] MEDS ORDERED: PROVENTIL IH PRN (12:35)
[2018-08-20] MEDS ORDERED: SODIUM CHLORIDE FLUSH SYRINGE 10 ML IV PRN (12:35)
[2018-08-20] MEDS ORDERED: VANCOMYCIN 1,750 MG in NACL 0.9% 500 ML 500 ML IV ONE (12:35)
[2018-08-20] MEDS ORDERED: NON-FORMULARY (Ondansetron [Zofran Tab] 4 MG) PO PRN (12:39)
[2018-08-20] MEDS ORDERED: NORCO 10/325 PO PRN (12:39)
[2018-08-20] MEDS ORDERED: TYLENOL PO PRN (12:39)
[2018-08-20] MEDS ORDERED: ZOFRAN ODT PO PRN (13:30)
[2018-08-20] MEDS ORDERED: MAXIPIME/NS 2 GM/100 ML 2 GM/100 ML BAG IV SCH (14:00)
--- NOTE | 2018-08-20 14:16 | Progress Note ---
Assessment and Plan no loaclized tenderness ?? pyelo wbc normal iv abs admit stent in place has string dictated Subjective Date of service: 08/20/18 Principal diagnosis: pyelo Objective - Constitutional Vitals: Vital Signs - 12hr 08/20/18 08/20/18 08/20/18 07:48 07:55 08:00 Temperature 103 F H Pulse Rate 134 H 110 H 111 H Respiratory 32 H 13 18 Rate Blood Pressure 108/70 Blood Pressure 133/68 [Left] O2 Sat by Pulse 100 100 Oximetry 08/20/18 08/20/18 08/20/18 08:15 08:30 08:32 Temperature Pulse Rate 97 H 102 H Respiratory 16 15 18 Rate Blood Pressure 102/58 99/58 Blood Pressure [Left] O2 Sat by Pulse 98 98 Oximetry 08/20/18 08/20/18 08/20/18 08:45 09:00 09:18 Temperature Pulse Rate 100 H 101 H Respiratory 13 19 Rate Blood Pressure 109/55 109/55 102/45 Blood Pressure [Left] O2 Sat by Pulse 98 98 99 Oximetry 08/20/18 08/20/18 08/20/18 09:30 09:45 10:00 Temperature Pulse Rate 97 H 94 H 101 H Respiratory 25 H 26 H 26 H Rate Blood Pressure 98/54 96/54 96/54 Blood Pressure [Left] O2 Sat by Pulse 98 99 96 Oximetry 08/20/18 08/20/18 08/20/18 10:15 10:30 10:45 Temperature Pulse Rate 101 H 98 H 97 H Respiratory 25 H 24 24 Rate Blood Pressure 88/49 93/47 89/46 Blood Pressure [Left] O2 Sat by Pulse 96 96 97 Oximetry 08/20/18 08/20/18 08/20/18 11:00 11:15 11:38 Temperature Pulse Rate 97 H 96 H 94 H Respiratory 23 14 23 Rate Blood Pressure 89/47 95/50 95/50 Blood Pressure [Left] O2 Sat by Pulse 97 97 97 Oximetry 08/20/18 08/20/18 11:46 12:00 Temperature Pulse Rate 101 H 89 Respiratory 24 21 Rate Blood Pressure 80/33 80/33 Blood Pressure [Left] O2 Sat by Pulse 97 99 Oximetry General appearance: Present: mild distress - Neck Neck: supple - Respiratory Respiratory effort: normal Extremities: no ischemia - Gastrointestinal General gastrointestinal: Present: tender - Labs CBC & Chem 7: 08/20/18 07:55 08/20/18 07:55 Labs: Abnormal lab results 08/20/18 08/20/18 08/20/18 Range/Units 07:55 07:55 07:55 MCH 27 L (28-32) pg Lymph # 1.0 L (1.2-5.4) K/mm3 Seg Neutrophils % 82.1 H (40.0-70.0) % Sodium 134 L (137-145) mmol/L Chloride 96.1 L (98-107) mmol/L Creatinine 0.6 L (0.7-1.2) mg/dL Glucose 105 H (65-100) mg/dL Lactic Acid 2.70 H* (0.7-2.0) mmol/L Total Bilirubin 1.40 H (0.1-1.2) mg/dL Urine WBC (Auto) (0.0-6.0) /HPF 08/20/18 Range/Units 09:25 MCH (28-32) pg Lymph # (1.2-5.4) K/mm3 Seg Neutrophils % (40.0-70.0) % Sodium (137-145) mmol/L Chloride (98-107) mmol/L Creatinine (0.7-1.2) mg/dL Glucose (65-100) mg/dL Lactic Acid (0.7-2.0) mmol/L Total Bilirubin (0.1-1.2) mg/dL Urine WBC (Auto) 62.0 H (0.0-6.0) /HPF Medications & Allergies - Medications Allergies/Adverse Reactions: Allergies No Known Allergies Allergy (Verified 08/20/18 07:47) Home Medications: Home Medications Medication Instructions Recorded Confirmed Last Taken Type Acetaminophen [Acetaminophen TAB] 650 mg PO Q4H PRN #15 tablet 07/21/18 08/20/18 08/17/18 Rx Amoxicillin [Trimox CAP] 500 mg PO TID 08/20/18 08/20/18 Unknown History HYDROcodone/APAP 10-325 [[place] 1 each PO Q6HR PRN 08/20/18 08/20/18 Unknown History 10/325] Ondansetron [Zofran TAB] 4 mg PO Q8HR PRN 08/20/18 08/20/18 Unknown History Active Medications: Generic Name Dose Route Start Last Admin Trade Name Freq PRN Reason Stop Dose Admin Acetaminophen 650 mg 08/20/18 12:35 Tylenol PO Q4H PRN Pain MILD(1-3)/Fever >100.5/GAINES Acetaminophen/Hydrocodone Bitart 1 each 08/20/18 12:39 [place] 10/325 PO Q6HR PRN Pain Albuterol 2.5 mg 08/20/18 12:35 Proventil IH Q4HRT PRN Shortness Of Breath Hydromorphone HCl 1 mg 08/20/18 13:38 Dilaudid IV Q4H PRN Pain , Severe (7-10) Cefepime HCl 2 gm in 100 mls @ 200 mls/hr 08/20/18 14:00 Maxipime/Ns 2 Gm/100 Ml IV Q8HR EMERSON Protocol Vancomycin HCl 1,750 mg/ 535 mls @ 333 mls/hr 08/20/18 12:35 08/20/18 14:13 Sodium Chloride IV 08/20/18 14:11 333 mls/hr ONCE ONE Administration Protocol Ondansetron HCl 4 mg 08/20/18 12:35 Zofran IV Q8H PRN Nausea And Vomiting Ondansetron HCl 4 mg 08/20/18 13:30 Zofran Odt PO Q8H PRN Nausea And Vomiting Sodium Chloride 10 ml 08/20/18 22:00 Sodium Chloride Flush Syringe 10 Ml IV BID EMERSON Sodium Chloride 10 ml 08/20/18 12:35 Sodium Chloride Flush Syringe 10 Ml IV PRN PRN LINE FLUSH
--- NOTE | 2018-08-20 15:00 | Consultation ---
HISTORY OF PRESENT ILLNESS: The patient is a 33-year-old woman who presented with fever of 103. No white count. Some nausea, dehydration. She is a couple of days post ureteroscopy. She initially presented with sepsis. We just placed a stent. She had a 1 cm stone that had to be fragmented. There was no purulent material in the urine when we did it. She also has gallstones. She has abdominal pain. PAST MEDICAL HISTORY: As mentioned above. PHYSICAL EXAMINATION: On exam, her abdomen is soft with diffuse tenderness, no localized. IMPRESSION: History of gallstones, history of a kidney infection, postop stone removal. We would recommend a HIDA scan, Surgical consult. She has an atelectasis as well. IV antibiotics and we will leave the stent. She has a string we can take that out at any time. It was an uncomplicated stone removal after her urinary tract and pyelo resolved, so I would look for other sources of the infection as well. JOB# [id number] BEBE/MOISE
[2018-08-20] MEDS ORDERED: DILAUDID ONE ×2 (15:16→15:18)
[2018-08-20] MEDS: DILAUDID IV PRN ×2 (15:17→21:36)
[2018-08-20] MEDS: TYLENOL PO PRN (17:26)
[2018-08-20] MEDS: MAXIPIME/NS 2 GM/100 ML 2 GM/100 ML BAG IV SCH (21:39)
[2018-08-20] MEDS: SODIUM CHLORIDE FLUSH SYRINGE 10 ML IV SCH (21:49)
[2018-08-20] MEDS ORDERED: AMBIEN PO ONE (23:06)
[2018-08-20] MEDS: NACL 0.9% 1000 ML 1,000 ML IV SCH (23:47)
[2018-08-21] MEDS: DILAUDID IV PRN ×2 (01:45→22:07)
[2018-08-21] MEDS: NACL 0.9% 1000 ML 1,000 ML IV SCH ×2 (06:18→15:26)
[2018-08-21] MEDS: MAXIPIME/NS 2 GM/100 ML 2 GM/100 ML BAG IV SCH ×3 (06:21→21:59)
[2018-08-21 06:33] LABS: Basophils % (Auto) 0.3 % (0.0-1.8); Eosinophils # (Auto) 0.2 K/mm3 (0.0-0.4); Eosinophils % (Auto) 2.4 % (0.0-4.3); Hematocrit 38.7 % (30.3-42.9); Hemoglobin 12.9 gm/dl (10.1-14.3); Lymphocytes # (Auto) 1.5 K/mm3 (1.2-5.4); Lymphocytes % (Auto) 21.5 % (13.4-35.0); Mean Corpuscular HGB Conc 33 % (30-34); Mean Corpuscular Volume 83 fl (79-97); Monocytes # (Auto) 0.6 K/mm3 (0.0-0.8); Monocytes % (Auto) 8.2 % (0.0-7.3); Platelet Count 181 K/mm3 (140-440); Red Blood Count 4.66 M/mm3 (3.65-5.03); Red Cell Distribution Width 13.9 % (13.2-15.2)
[2018-08-21] MEDS: SODIUM CHLORIDE FLUSH SYRINGE 10 ML IV SCH ×2 (10:26→21:59)
--- NOTE | 2018-08-21 12:40 | Progress Note ---
Assessment and Plan /Sepsis due to UTI and B/L PNA ? IV antibiotic therapy, IVF resuscitation therapy, follow blood cultures and urine cx /UTI (urinary tract infection) IV antibiotic therapy, follow cx /Cholelithiasis, ordered HIDA scan /Possible b/l PNA? - cont abx / DVT prophylaxis SCD to BLE while in bed Brief history: 33 YO Female with h/o Nephrolithiasis who is POD #2 S/P Cysto laser Ureteroscopy presents to ED for evaluation of nausea, multiple episodes of vomiting, and fever and right side flank pain over the past 2 days following the procedure. Pt seen and evaluated in ED and found to have UTI complicated by Sepsis. Pt was hypotensive with systolic BP in the 80's. Pt initiated on sepsis protocol and admitted to medical floor. Urology consulted in ED recommended to evaluate for other source of infection. Radiological data: CT abdomen/pelvis: 1. Moderate right hydroureteronephrosis with right nephroureteral stent in place. No ureteral calculus. 2. Nonobstructing right renal calculus. 3. Hepatic steatosis and hepatomegaly. 4. Cholelithiasis. 5. Bibasilar pulmonary opacities may reflect atelectasis versus pneumonia. Subjective Date of service: 08/21/18 Principal diagnosis: pyelo Interval history: spiked fever pt seen and examined c/o n/V and right lumber/flank pain Objective - Constitutional Vitals: Vital Signs - 12hr 08/21/18 08/21/18 08/21/18 03:19 05:09 12:07 Temperature 98.7 F 98.2 F 102.5 F H Pulse Rate 98 H 97 H 109 H Respiratory 16 24 22 Rate Blood Pressure 94/64 106/70 105/72 O2 Sat by Pulse 94 98 97 Oximetry General appearance: Present: no acute distress, obese - EENT Eyes: PERRL, EOM intact ENT: hearing intact, clear oral mucosa Ears: bilateral: normal - Neck Neck: supple, normal ROM - Respiratory Respiratory effort: normal Respiratory: bilateral: CTA - Cardiovascular Rhythm: regular Heart Sounds: Present: S1 & S2. Absent: gallop, rub Extremities: pulses intact, No edema, normal color, Full ROM - Gastrointestinal General gastrointestinal: Present: soft, non-distended, normal bowel sounds, ot her (right flank tenderness) - Integumentary Integumentary: clear, warm, dry - Musculoskeletal Musculoskeletal: 1, strength equal bilaterally - Neurologic Neurologic: moves all extremities - Psychiatric Psychiatric: memory intact, appropriate mood/affect, intact judgment & insight - Labs CBC & Chem 7: 08/23/18 06:45 08/23/18 06:45 Labs: Abnormal lab results 08/21/18 Range/Units 05:37 Daniels % (Auto) 8.2 H (0.0-7.3) %
--- NOTE | 2018-08-21 14:52 | Nuclear Medicine Report ---
HEPATOBILIARY SCAN: History: Abdominal pain. Following the injection of the radionuclide, serial scanning was obtained over the right upper quadrant. Initial imaging of the liver demonstrates a relatively normal activity pattern. There is progressive filling of the central biliary ducts, common bile duct and bowel loops in the appropriate time frame. There is nonvisualization of the gallbladder at 60 minutes. The patient terminated the examination at 60 minutes due to pain. IMPRESSION: Nonvisualization of the gallbladder as described.
[2018-08-21] MEDS: ZOFRAN IV PRN ×2 (15:31→22:07)
[2018-08-21] MEDS: TYLENOL PO PRN ×2 (15:31→23:37)
[2018-08-22] MEDS: ZOFRAN IV PRN ×2 (05:39→21:24)
[2018-08-22] MEDS: DILAUDID IV PRN ×4 (05:39→21:22)
[2018-08-22] MEDS: NACL 0.9% 1000 ML 1,000 ML IV SCH (05:40)
[2018-08-22] MEDS: TYLENOL PO PRN (05:57)
[2018-08-22] MEDS: MAXIPIME/NS 2 GM/100 ML 2 GM/100 ML BAG IV SCH ×3 (06:01→21:35)
[2018-08-22] MEDS: SODIUM CHLORIDE FLUSH SYRINGE 10 ML IV SCH (12:22)
--- NOTE | 2018-08-22 13:06 | Progress Note ---
Assessment and Plan /Gm negative Septicemia - will follow final blood cx - cont cfepime for now, will do 2d echo for possible vegetation /Sepsis due to bacteremia/UTI and B/L PNA ? IV antibiotic therapy, IVF resuscitation therapy, + blood cultures and + urine cx /UTI (urinary tract infection) IV antibiotic therapy, follow cx /Cholelithiasis, ordered HIDA scan - gall bladder was not visualized /Possible b/l PNA? - cont abx / DVT prophylaxis SCD to BLE while in bed Brief history: 33 YO Female with h/o Nephrolithiasis who is POD #2 S/P Cysto laser Ureteroscopy presents to ED for evaluation of nausea, multiple episodes of vomiting, and fever and right side flank pain over the past 2 days following the procedure. Pt seen and evaluated in ED and found to have UTI complicated by Sepsis. Pt was hypotensive with systolic BP in the 80's. Pt initiated on sepsis protocol and admitted to medical floor. Urology consulted in ED recommended to evaluate for other source of infection. Radiological data: CT abdomen/pelvis: 1. Moderate right hydroureteronephrosis with right nephroureteral stent in plac e. No ureteral calculus. 2. Nonobstructing right renal calculus. 3. Hepatic steatosis and hepatomegaly. 4. Cholelithiasis. 5. Bibasilar pulmonary opacities may reflect atelectasis versus pneumonia. HIDA scan: There is progressive filling of the central biliary ducts, common bile duct and bowel loops in the appropriate time frame. There is nonvisualization of the gallbladder at 60 minutes. The patient terminated the examination at 60 minutes due to pain. Physical exam: General appearance: Present: no acute distress, obese - EENT Eyes: PERRL, EOM intact ENT: hearing intact, clear oral mucosa Ears: bilateral: normal - Neck Neck: supple, normal ROM - Respiratory Respiratory effort: normal Respiratory: bilateral: CTA - Cardiovascular Rhythm: regular Heart Sounds: Present: S1 & S2. Absent: gallop, rub Extremities: pulses intact, No edema, normal color, Full ROM - Gastrointestinal General gastrointestinal: Present: soft, non-distended, normal bowel sounds, other (right flank tenderness) - Integumentary Integumentary: clear, warm, dry - Musculoskeletal Musculoskeletal: 1, strength equal bilaterally - Neurologic Neurologic: moves all extremities - Psychiatric Psychiatric: memory intact, appropriate mood/affect, intact judgment & insight Subjective Date of service: 08/22/18 Principal diagnosis: pyelo Interval history: pt seen and examined c/o n/V and right lumber/flank pain - but states improving than yesterday daughter at bedside Objective - Constitutional Vitals: Vital Signs - 12hr 08/22/18 08/22/18 05:39 10:00 Respiratory 24 Rate O2 Sat by Pulse 98 Oximetry - Labs CBC & Chem 7: 08/23/18 06:45 08/23/18 06:45
[2018-08-22] MEDS: LOVENOX SUB-Q SCH (21:22)
[2018-08-23] MEDS: PERCOCET 5/325 PO PRN ×3 (01:38→21:44)
[2018-08-23] MEDS: SODIUM CHLORIDE FLUSH SYRINGE 10 ML IV SCH ×3 (01:40→21:44)
[2018-08-23] MEDS: DILAUDID IV PRN ×3 (03:56→18:18)
[2018-08-23] MEDS: D5W/NS W/KCL 20MEQ 20 MEQ/1,000 ML BAG IV SCH ×2 (03:57→21:47)
[2018-08-23] MEDS: MAXIPIME/NS 2 GM/100 ML 2 GM/100 ML BAG IV SCH (06:38)
[2018-08-23 07:51] LABS: Basophils % (Auto) 0.4 % (0.0-1.8); Eosinophils # (Auto) 0.3 K/mm3 (0.0-0.4); Eosinophils % (Auto) 6.2 % (0.0-4.3); Hematocrit 36.5 % (30.3-42.9); Hemoglobin 11.8 gm/dl (10.1-14.3); Lymphocytes % (Auto) 39.6 % (13.4-35.0); Mean Corpuscular HGB Conc 32 % (30-34); Mean Corpuscular Volume 83 fl (79-97); Monocytes # (Auto) 0.6 K/mm3 (0.0-0.8); Monocytes % (Auto) 11.4 % (0.0-7.3); Platelet Count 223 K/mm3 (140-440); Red Blood Count 4.39 M/mm3 (3.65-5.03); Red Cell Distribution Width 13.7 % (13.2-15.2)
[2018-08-23 08:04] LABS: BUN/Creatinine Ratio 20; Blood Urea Nitrogen 8 mg/dL (7-17); Calcium 8.4 mg/dL (8.4-10.2); Hemolysis Index 30
--- NOTE | 2018-08-23 08:40 | Progress Note ---
Assessment and Plan /Sepsis due to UTI and B/L PNA ? IV antibiotic therapy, IVF resuscitation therapy, repeat negative blood cultures and + urine cx /Gm positive bacteremia - coag negative staph - repeat blood cx negative -likely contamination /UTI (urinary tract infection) cx growing ESBL? will change abx to Levaquin, consult ID /Cholelithiasis, ordered HIDA scan - gall bladder was not visualized /Possible b/l PNA? - cont abx / DVT prophylaxis SCD to BLE while in bed Brief history: 33 YO Female with h/o Nephrolithiasis who was POD #2 S/P Cysto laser Ureteroscopy presented to ED for evaluation of nausea, multiple episodes of vomiting, and fever and right side flank pain over the past 2 days following the procedure. Pt seen and evaluated in ED and found to have UTI complicated by Sepsis. Pt was hypotensive with systolic BP in the 80's. Pt initiated on sepsis protocol and admitted to medical floor. Urology consulted in ED recommended to evaluate for other source of infection. Radiological data: CT abdomen/pelvis: 1. Moderate right hydroureteronephrosis with right nephroureteral stent in place. No ureteral calculus. 2. Nonobstructing right renal calculus. 3. Hepatic steatosis and hepatomegaly. 4. Cholelithiasis. 5. Bibasilar pulmonary opacities may reflect atelectasis versus pneumonia. HIDA scan: There is progressive filling of the central biliary ducts, common bile duct and bowel loops in the appropriate time frame. There is nonvisualization of the gallbladder at 60 minutes. The patient terminated the examination at 60 minutes due to pain. Physical exam: General appearance: Present: no acute distress, obese - EENT Eyes: PERRL, EOM intact ENT: hearing intact, clear oral mucosa Ears: bilateral: normal - Neck Neck: supple, normal ROM - Respiratory Respiratory effort: normal Respiratory: bilateral: CTA - Cardiovascular Rhythm: regular Heart Sounds: Present: S1 & S2. Absent: gallop, rub Extremities: pulses intact, No edema, normal color, Full ROM - Gastrointestinal General gastrointestinal: Present: soft, non-distended, normal bowel sounds, other (right flank tenderness) - Integumentary Integumentary: clear, warm, dry - Musculoskeletal Musculoskeletal: 1, strength equal bilaterally - Neurologic Neurologic: moves all extremities - Psychiatric Psychiatric: memory intact, appropriate mood/affect, intact judgment & insight Subjective Date of service: 08/23/18 Principal diagnosis: pyelo Interval history: pt seen and examined c/o n/V and right lumber/flank pain - but states improving than yesterday Tolerating diet better Discussed with ID, Cx growing ESBL Objective - Constitutional Vitals: Vital Signs - 12hr 08/22/18 08/22/18 08/22/18 21:22 22:00 23:06 Temperature 98.5 F Pulse Rate 76 Respiratory 20 20 16 Rate Blood Pressure 101/59 O2 Sat by Pulse 99 Oximetry 08/23/18 08/23/18 08/23/18 01:38 03:56 05:46 Temperature 97.3 F L Pulse Rate 70 Respiratory 20 24 16 Rate Blood Pressure 90/48 O2 Sat by Pulse 98 Oximetry - Labs CBC & Chem 7: 08/23/18 06:45 08/23/18 06:45 Labs: Abnormal lab results 08/23/18 08/23/18 Range/Units 06:45 06:45 MCH 27 L (28-32) pg Lymph % (Auto) 39.6 H (13.4-35.0) % [place] % (Auto) 11.4 H (0.0-7.3) % Eos % (Auto) 6.2 H (0.0-4.3) % Sodium 136 L (137-145) mmol/L Carbon Dioxide 20 L (22-30) mmol/L Creatinine 0.4 L (0.7-1.2) mg/dL Glucose 105 H (65-100) mg/dL
[2018-08-23] MEDS ORDERED: LEVAQUIN 750MG/150ML 750 MG/150 ML BAG IV SCH (10:00)
--- NOTE | 2018-08-23 15:36 | Consultation ---
History of Present Illness - Reason for Consult Consult date: 08/23/18 ESBL UTI Requesting physician: JENNIFER MILTON - History of Present Illness This patient is a 33 year old female known to ID. She was previously admitted on 07/16/18 , with a complicated UTI, with with large obstructive right kidney stone at the [facility]. Patient underwent retrograde pyelogram for stone removal and stent placement on 07/17/2018. Urine culture grew E faecalis. She became septic after her stone removal procedure and [facility], sensitive to penicillian. She was discharged on 07/21/18 on Amoxicillian 500mg Po every 8 hours for 7 days. The patient presented to the ED on 08/20/18 with a chief complaint of right flank pain along with nausea, vomiting and fever. Upon further evaluation , pateint was found to have a UTI complicated by sepsis. On admission, WBC 6.9, , Creatinine 0.4, lactic acid 2.70, . AST 21, ALT 44 and AP 97,, Temperature 103, Heart rate 110, BP 99/58, U/a was consistent with a UTI, WBC 62 and LE moderated., Chest xray shows no infiltrates. Abdomen and pelvis CT show Moderate right hydroureteronephrosis with right nephroureteral stent in place. No ureteral calculus..Cholelithiasis. Bibasilar pulmonary opacities may reflect atelectasis versus pneumonia. Blood cultures were drawn and show Coag negative staphylococcuss, 1 out of 4 bottles, Repeat cultures show no growth to date. Urine culture show ESBL E. Coli. Review of Systems: General: + fever, +chills, no nightsweats, unintentional weight change, or change in appetite Cutaneous: no rash, pruritus Head: no headaches or injury Eyes: no changes in vision, eye pain, double vision Ears: no ear pain, ear discharge, ringing or hearing loss Nose: no nose bleeding, stuffiness Mouth & throat: no bleeding gums, no horseness, no dental problems, or swollen glands Neck: no pain, node enlargement/lumps, tyroid enlargement or tenderness Respiratory: + cough, pleuritic chest pain, no wheezing, sputum, hemoptysis, Cardiovascular: no chest pain, leg edema, cyanosis, VOGT, orthopnea Musculoskeletal: no decreased joint motion, bone or joint pain, joint swelling, + right thigh pain Gastrointestinal: no nausea, vomiting, hematemesis, diarrhea, constipation, Genitourinary/Reproductive: no frequent urination, +CVA tendederness Neurogical: no seizures, no headaches, no weakness, no paresthesias, no loss of speech or vision; no memory loss, no vertigo, no tremors, no numbness Psychiatric: stable mood; no excessive anxiety, sadness or moodiness Past History Past Medical History: other (Nephrolithiasis) Past Surgical History: Other (Laser uteroscopy) Social history: single. denies: smoking, alcohol abuse, prescription drug abuse Family history: no significant family history (reviewed) Medications and Allergies Allergies Allergy/AdvReac Type Severity Reaction Status Date / Time No Known Allergies Allergy Verified 08/20/18 07:47 Home Medications Medication Instructions Recorded Confirmed Last Taken Type Acetaminophen [Acetaminophen TAB] 650 mg PO Q4H PRN #15 tablet 07/21/18 08/20/18 08/17/18 Rx Amoxicillin [Trimox CAP] 500 mg PO TID 08/20/18 08/20/18 Unknown History HYDROcodone/APAP 10-325 [[place] 1 each PO Q6HR PRN 08/20/18 08/20/18 Unknown History 10/325] Ondansetron [Zofran TAB] 4 mg PO Q8HR PRN 08/20/18 08/20/18 Unknown History Active Meds: Active Medications Acetaminophen (Tylenol) 650 mg PO Q4H PRN PRN Reason: Pain MILD(1-3)/Fever >100.5/GAINES Last Admin: 08/22/18 05:57 Dose: 650 mg Documented by: Albuterol (Proventil) 2.5 mg IH Q4HRT PRN PRN Reason: Shortness Of Breath Enoxaparin Sodium (Lovenox) 40 mg SUB-Q QDAY@2200 EMERSON Last Admin: 08/22/18 21:22 Dose: 40 mg Documented by: Hydromorphone HCl (Dilaudid) 0.5 mg IV Q8H PRN PRN Reason: Pain , Severe (7-10) Potassium Chloride/Dextrose/Sod Cl (D5w/Ns W/Kcl 20meq) 20 meq in 1,000 mls @ 75 mls/hr IV DIRECT EMERSON Last Admin: 08/23/18 03:57 Dose: 75 mls/hr Documented by: Levofloxacin/Dextrose (Levaquin 750mg/150ml) 750 mg in 150 mls @ 100 mls/hr IV Q24HR [facility]; Protocol Last Admin: 08/23/18 10:09 Dose: 100 mls/hr Documented by: Ondansetron HCl (Zofran) 4 mg IV Q8H PRN PRN Reason: Nausea And Vomiting Last Admin: 08/22/18 21:24 Dose: 4 mg Documented by: Ondansetron HCl (Zofran Odt) 4 mg PO Q8H PRN PRN Reason: Nausea And Vomiting Oxycodone/Acetaminophen (Percocet 5/325) 1 tab PO Q6H PRN PRN Reason: Pain, Moderate (4-6) Last Admin: 08/23/18 01:38 Dose: 1 tab Documented by: Sodium Chloride (Sodium Chloride Flush Syringe 10 Ml) 10 ml IV BID [facility] Last Admin: 08/23/18 10:10 Dose: 10 ml Documented by: Sodium Chloride (Sodium Chloride Flush Syringe 10 Ml) 10 ml IV PRN PRN PRN Reason: LINE FLUSH Zolpidem Tartrate (Ambien) 10 mg PO QHS PRN PRN Reason: Insomnia Physical Examination - Physical Exam Narrative exam: Constitutional: Alert, cooperative. Mild distress Head, Ears, Nose: Normocephalic, atraumatic. External ears, nose normal Eyes: Conjunctivae/corneas clear. No icterus. No ptosis. Neck: Supple, no meningeal signs Oral: dentition fair, no thrush thrush Cardiovascular: S1, S2 normal. Respiratory: Good air entry, clear to auscultation bilaterally, + cough, no sputum production, +pleuritic chest pain GI: Soft, non-tender; bowel sounds normal. No peritoneal signs, + CVA tenderness Musculoskeletal: No pedal edema, no cyanosis. Skin: No rash or abscess. Hem/Lymphatic: No palpable cervical or supraclavicular nodes. No lymphangitis Psych: Mood ok. Affect normal Neurological: Awake, alert, oriented. - Constitutional Vitals: Vital Signs Temp Pulse Resp BP Pulse Ox 98.3 F 71 16 91/50 98 08/23/18 12:17 08/23/18 12:17 08/23/18 12:17 08/23/18 12:17 08/23/18 12:17 Temperature -Last 24 Hours Temperature 98.3 F Temperature 97.3 F Temperature 98.5 F Temperature 99.6 F Results - Labs CBC & Chem 7: 08/23/18 06:45 08/23/18 06:45 Labs: Abnormal lab results 08/23/18 08/23/18 Range/Units 06:45 06:45 MCH 27 L (28-32) pg Lymph % (Auto) 39.6 H (13.4-35.0) % [place] % (Auto) 11.4 H (0.0-7.3) % Eos % (Auto) 6.2 H (0.0-4.3) % Sodium 136 L (137-145) mmol/L Carbon Dioxide 20 L (22-30) mmol/L Creatinine 0.4 L (0.7-1.2) mg/dL Glucose 105 H (65-100) mg/dL Assessment and Plan Previous Cultures: 07/16/18 Urine: Enterococcus faecalis, olivares susceptible Cultures: 08/20/2018 Blood: Coag negative Staph, 1 out of 4 bottles 08/20/2018 Urine: ESBL E. Coli 08/21/2018 Blood: no growth to date A/P: 33 year old female 33 year old female know to ID. She was previously admitted on 07/16/18 , with a complicated UTI, with with large obstructive right kidney stone at the [facility]. Patient underwent retrograde pyelogram for stone removal and stent placement on 07/17/2018. Urine culture grew E faecalis. She became septic after her stone removal procedure and was treated [facility] for E.faecalis, sensitive to penicillian. She was discharged on 07/21/18 on Amoxicillian 500mg Po every 8 hours for 7 days. . Now admitted with: 1. Sepsis on admission: evidenced by fever, tachycardia, hypotension and elevated lactate acid, etiology most likely complicated UTI. U/A is consistent with a UTI, urine culture grew ESBL E. coli. Blood cultures grew coag negative staph, 1 out of 4 bottles, likely contaminent. Repeat cultures show no growth t hus far. 2. Complicated Urinary Tract Infection: U/A WBC 62 and LE moderate. Urine cultures grew ESBL e. coli. Abdominal and pelvis CT show Moderate right hydr oureteronephrosis with right nephroureteral stent in place, no ureteral calculus. Currently being treated with Levofloxacin. 3. ? Pneumonia CAP : abdomen and pelvis CT show Bibasilar pulmonary opacities may reflect atelectasis versus pneumonia. 4. CoNS Bacteremia: Blood cutures grew coag negative staph 1, out of 4 bottles, likely contaminant. Repeat cultures show no growth thus far. 5. Cholelithiasis: Abdomen and pelvis CT showed Cholelithiasis, On HIDA scan - gall bladder was not visualized Plan: -f/u Blood cultures -f/u urine cultures -stop levaquin - on board -start meropenem 1 g IV q12h total 1 week, upon discharge will do ertapenem 1 gm IV qday x total 7 days -Midline ordered -Order placed with case management -add azithormycin 500 mg IV qday for CAP -contact precautions for ESBL -influenza rapid ordered d/w Dr. Natanael Walden, [facility] M: [phone] O:[phone]
[2018-08-23] MEDS: ZOFRAN IV PRN (15:42)
[2018-08-23] MEDS: ZITHROMAX 500 MG in NACL 0.9% 250ML 250 ML IV SCH (18:51)
[2018-08-23] MEDS: MERREM 1,000 MG in NACL 0.9% 100 ML IV SCH (20:21)
[2018-08-23] MEDS: AMBIEN PO PRN (21:44)
[2018-08-23] MEDS: LOVENOX SUB-Q SCH (21:44)
[2018-08-23] MEDS ORDERED: MERREM/NS 500 MG/50 ML 500 MG/50 ML BAG IV SCH (22:00)
[2018-08-24] MEDS: DILAUDID IV PRN (05:34)
[2018-08-24] MEDS: MERREM 1,000 MG in NACL 0.9% 100 ML IV SCH ×3 (05:34→22:32)
--- NOTE | 2018-08-24 08:53 | Progress Note ---
Assessment and Plan Previous Cultures: 07/16/18 Urine: Enterococcus faecalis, olivares susceptible Cultures: 08/20/2018 Blood: Coag negative Staph, 1 out of 4 bottles 08/20/2018 Urine: ESBL E. Coli 08/21/2018 Blood: no growth to date A/P: 33 year old female 33 year old female know to ID. She was previously admitted on 07/16/18 , with a complicated UTI, with with large obstructive right kidney stone at the [facility]. Patient underwent retrograde pyelogram for stone removal and stent placement on 07/17/2018. Urine culture grew E faecalis. She became septic after her stone removal procedure and was treated [facility] for E.faecalis, sensitive to penicillian. She was discharged on 07/21/18 on Amoxicillian 500mg Po every 8 hours for 7 days. . Now admitted with: 1. Sepsis on admission: Improved, still hypotensive, etiology most likely complicated UTI. U/A is consistent with a UTI, urine culture grew ESBL E. coli. Blood cultures grew coag negative staph, 1 out of 4 bottles, likely contaminent. Repeat cultures show no growth thus far. 2. Complicated Urinary Tract Infection: U/A WBC 62 and LE moderate. Urine cultures grew ESBL e. coli. Abdominal and pelvis CT show Moderate right hydroureteronephrosis with right nephroureteral stent in place, no ureteral calculus. Currently being treated with Levofloxacin. 3. ? Pneumonia CAP : abdomen and pelvis CT show Bibasilar pulmonary opacities may reflect atelectasis versus pneumonia. 4. CoNS Bacteremia: Blood cutures grew coag negative staph 1, out of 4 bottles, likely contaminant. Repeat cultures show no growth thus far. 5. Cholelithiasis: Abdomen and pelvis CT showed Cholelithiasis, On HIDA scan - gall bladder was not visualized Plan: -f/u Blood cultures -f/u urine cultures - on board -Continue meropenem 1 g IV q12h total 1 week, D2 -upon discharge will do ertapenem 1 gm IV qday x total 7 days - until 08/31/18 -order sent to [facility] for approval -Order placed with case management -Continue azithormycin 500 mg IV qday for CAP, D2 -contact precautions for ESBL -f/u influenza rapid ordered d/w Dr. Natanael Walden, [employer] [facility] M: [phone] O:[phone] Subjective Date of service: 08/24/18 Principal diagnosis: pyelo Interval history: Patient seen and examined. Primary language Luxembourgish, communication via interpretation line. Continuing to have CVA tenderness, but states she is fee ling better today. No fevers. Discussed plan for OPAT, verbalized understanding. Objective - Exam Narrative Exam: Constitutional: Alert, cooperative. Mild distress Head, Ears, Nose: Normocephalic, atraumatic. External ears, nose normal Eyes: Conjunctivae/corneas clear. No icterus. No ptosis. Neck: Supple, no meningeal signs Oral: dentition fair, no thrush thrush Cardiovascular: S1, S2 normal. Respiratory: Good air entry, clear to auscultation bilaterally, + cough, no sputum production, +pleuritic chest pain GI: Soft, non-tender; bowel sounds normal. No peritoneal signs, + CVA tenderness Musculoskeletal: No pedal edema, no cyanosis. Skin: No rash or abscess. Hem/Lymphatic: No palpable cervical or supraclavicular nodes. No lymphangitis Psych: Mood ok. Affect normal Neurological: Awake, alert, oriented. - Constitutional Vitals: Vital Signs Temp Pulse Resp BP Pulse Ox 98.7 F 71 16 81/53 99 08/24/18 05:47 08/24/18 05:47 08/24/18 05:47 08/24/18 05:47 08/24/18 05:47 Temperature -Last 24 Hours Temperature 98.7 F Temperature 98.3 F Temperature 98.0 F Temperature 98.3 F - Labs CBC & Chem 7: 08/23/18 06:45 08/23/18 06:45
[2018-08-24] MEDS: D5W/NS W/KCL 20MEQ 20 MEQ/1,000 ML BAG IV SCH (13:38)
[2018-08-24] MEDS: SODIUM CHLORIDE FLUSH SYRINGE 10 ML IV SCH ×2 (13:40→22:33)
--- NOTE | 2018-08-24 16:06 | Progress Note ---
Assessment and Plan /Sepsis due to UTI and B/L PNA ? IV antibiotic therapy per ID, IVF resuscitation therapy, repeat negative blood cultures and + urine cx /Gm positive bacteremia - coag negative staph - repeat blood cx negative -likely contamination /UTI (urinary tract infection) cx growing ESBL? consulted ID -Continue meropenem 1 g IV q12h total 1 week, D2 -upon discharge will need ertapenem 1 gm IV qday x total 7 days - until 08/31/18 -Order placed with case management to arrange , pt has no insurance and undocumented /Cholelithiasis, ordered HIDA scan - gall bladder was not visualized /Possible b/l PNA? - -Continue azithormycin 500 mg IV qday for CAP, D2 / DVT prophylaxis SCD to BLE while in bed Brief history: 33 YO Female with h/o Nephrolithiasis who was POD #2 S/P Cysto laser Ureteroscopy presented to ED for evaluation of nausea, multiple episodes of vomiting, and fever and right side flank pain over the past 2 days following the procedure. Pt seen and evaluated in ED and found to have UTI complicated by Sep sis. Pt was hypotensive with systolic BP in the 80's. Pt initiated on sepsis protocol and admitted to medical floor. Urology consulted in ED recommended medical management for infection. Radiological data: CT abdomen/pelvis: 1. Moderate right hydroureteronephrosis with right nephroureteral stent in place. No ureteral calculus. 2. Nonobstructing right renal calculus. 3. Hepatic steatosis and hepatomegaly. 4. Cholelithiasis. 5. Bibasilar pulmonary opacities may reflect atelectasis versus pneumonia. HIDA scan: There is progressive filling of the central biliary ducts, common bile duct and bowel loops in the appropriate time frame. There is nonvisualization of the gallbladder at 60 minutes. The patient terminated the examination at 60 minutes due to pain. Physical exam: General appearance: Present: no acute distress, obese - EENT Eyes: PERRL, EOM intact ENT: hearing intact, clear oral mucosa Ears: bilateral: normal - Neck Neck: supple, normal ROM - Respiratory Respiratory effort: normal Respiratory: bilateral: CTA - Cardiovascular Rhythm: regular Heart Sounds: Present: S1 & S2. Absent: gallop, rub Extremities: pulses intact, No edema, normal color, Full ROM - Gastrointestinal General gastrointestinal: Present: soft, non-distended, normal bowel sounds, other (right flank tenderness) - Integumentary Integumentary: clear, warm, dry - Musculoskeletal Musculoskeletal: 1, strength equal bilaterally - Neurologic Neurologic: moves all extremities - Psychiatric Psychiatric: memory intact, appropriate mood/affect, intact judgment & insight Subjective Date of service: 08/24/18 Principal diagnosis: pyelo Interval history: pt seen and examined NO n/V and improved right lumber/flank pain Tolerating diet better, had BM today Discussed with ID, Cx growing ESBL patient is undocumented and will need 2 weeks of IV abx Objective - Constitutional Vitals: Vital Signs - 12hr 08/24/18 08/24/18 05:47 12:13 Temperature 98.7 F 98.6 F Pulse Rate 71 81 Respiratory 16 20 Rate Blood Pressure 81/53 97/63 O2 Sat by Pulse 99 98 Oximetry - Labs CBC & Chem 7: 08/23/18 06:45 08/23/18 06:45
[2018-08-24] MEDS: ZITHROMAX 500 MG in NACL 0.9% 250ML 250 ML IV SCH (19:31)
[2018-08-24] MEDS: AMBIEN PO PRN (22:32)
[2018-08-24] MEDS: PERCOCET 5/325 PO PRN (22:32)
[2018-08-24] MEDS: LOVENOX SUB-Q SCH (22:33)
[2018-08-25] MEDS: MERREM 1,000 MG in NACL 0.9% 100 ML IV SCH ×2 (05:50→16:10)
[2018-08-25] MEDS: D5W/NS W/KCL 20MEQ 20 MEQ/1,000 ML BAG IV SCH (05:50)
[2018-08-25] MEDS: DILAUDID IV PRN ×3 (06:11→23:40)
[2018-08-25] MEDS: ZOFRAN IV PRN ×2 (06:11→23:38)
--- NOTE | 2018-08-25 08:58 | Progress Note ---
Assessment and Plan Previous Cultures: 07/16/18 Urine: Enterococcus faecalis, olivares susceptible Cultures: 08/20/2018 Blood: Coag negative Staph, 1 out of 4 bottles 08/20/2018 Urine: ESBL E. Coli 08/21/2018 Blood: no growth to date A/P: 33 year old female 33 year old female know to ID. She was previously admitted on 07/16/18 , with a complicated UTI, with with large obstructive right kidney stone at the [facility]. Patient underwent retrograde pyelogram for stone removal and stent placement on 07/17/2018. Urine culture grew E faecalis. She became septic after her stone removal procedure and was treated [facility] Unasyn for E.faecalis, sensitive to penicillian. She was discharged on 07/21/18 on Amoxicillian 500mg Po every 8 hours for 7 days. . Now admitted with: 1. Sepsis on admission: Improved, still hypotensive, etiology most likely complicated UTI. U/A is consistent with a UTI, urine culture grew ESBL E. coli. Blood cultures grew coag negative staph, 1 out of 4 bottles, likely contaminent. Repeat cultures show no growth thus far. 2. Complicated Urinary Tract Infection: U/A WBC 62 and LE moderate. Urine cultures grew ESBL e. coli. Abdominal and pelvis CT show Moderate right hydroureteronephrosis with right nephroureteral stent in place, no ureteral calculus. Currently being treated with Levofloxacin. 3. ? Pneumonia CAP : abdomen and pelvis CT show Bibasilar pulmonary opacities may reflect atelectasis versus pneumonia. 4. CoNS Bacteremia: Blood cultures grew coag negative staph 1, out of 4 bottles, likely contaminant. Repeat cultures show no growth thus far. 5. Cholelithiasis: Abdomen and pelvis CT showed Cholelithiasis, On HIDA scan - gall bladder was not visualized Plan: -Continue meropenem 1 g IV q12h total 1 week, D3 -upon discharge will do ertapenem 1 gm IV qday x total 7 days - until 08/31/18 -order sent to [facility] for approval -Continue azithormycin 500 mg IV qday for CAP, D3 -contact precautions for ESBL -f/u influenza rapid [facility] M: [phone] O:[phone] Subjective Date of service: 08/25/18 Principal diagnosis: pyelo Interval history: Patient seen and examined. Primary language Hungarian, communication via interpretation line. Stated that she was feeling better today , Left arm pain where Midline was placed, PICC line team notified. Objective - Exam Narrative Exam: Constitutional: Alert, cooperative. No acute distress Head, Ears, Nose: Normocephalic, atraumatic. External ears, nose normal Eyes: Conjunctivae/corneas clear. No icterus. No ptosis. Neck: Supple, no meningeal signs Oral: dentition fair, no thrush thrush Cardiovascular: S1, S2 normal. Respiratory: Good air entry, clear to auscultation bilaterally, + cough, no sputum production GI: Soft, non-tender; bowel sounds normal. No peritoneal signs, + CVA tenderness Musculoskeletal: No pedal edema, no cyanosis. Skin: No rash or abscess. Hem/Lymphatic: No palpable cervical or supraclavicular nodes. No lymphangitis Psych: Mood ok. Affect normal Neurological: Awake, alert, oriented. - Constitutional Vitals: Vital Signs Temp Pulse Resp BP Pulse Ox 98.2 F 72 18 95/64 97 08/25/18 05:11 08/24/18 22:02 08/25/18 06:41 08/25/18 05:11 08/24/18 22:02 Temperature -Last 24 Hours Temperature 98.2 F Temperature 98.5 F Temperature 98.5 F Temperature 98.6 F - Labs CBC & Chem 7: 08/23/18 06:45 08/23/18 06:45
[2018-08-25] MEDS: SODIUM CHLORIDE FLUSH SYRINGE 10 ML IV SCH (10:44)
[2018-08-25] MEDS: ZITHROMAX 500 MG in NACL 0.9% 250ML 250 ML IV SCH (18:32)
[2018-08-25] MEDS: LOVENOX SUB-Q SCH (23:24)
[2018-08-26] MEDS: MERREM 1,000 MG in NACL 0.9% 100 ML IV SCH ×4 (00:49→22:45)
[2018-08-26] MEDS: D5W/NS W/KCL 20MEQ 20 MEQ/1,000 ML BAG IV SCH ×2 (01:52→22:46)
[2018-08-26] MEDS: SODIUM CHLORIDE FLUSH SYRINGE 10 ML IV SCH ×3 (02:58→22:45)
--- NOTE | 2018-08-26 08:40 | Progress Note ---
Assessment and Plan Previous Cultures: 07/16/18 Urine: Enterococcus faecalis, olivares susceptible Cultures: 08/20/2018 Blood: Coag negative Staph, 1 out of 4 bottles 08/20/2018 Urine: ESBL E. Coli 08/21/2018 Blood: no growth to date A/P: 33 year old female 33 year old female know to ID. She was previously admitted on 07/16/18 , with a complicated UTI, with with large obstructive right kidney stone at the [facility]. Patient underwent retrograde pyelogram for stone removal and stent placement on 07/17/2018. Urine culture grew E faecalis. She became septic after her stone removal procedure and was treated [facility] Unasyn for E.faecalis, sensitive to penicillian. She was discharged on 07/21/18 on Amoxicillian 500mg Po every 8 hours for 7 days. . Now admitted with: 1. Sepsis on admission: Resolved etiology most likely complicated UTI. U/A is consistent with a UTI, urine culture grew ESBL E. coli. Blood cultures grew coag negative staph, 1 out of 4 bottles, likely contaminent. Repeat cultures show no growth thus far. 2. Complicated Urinary Tract Infection: U/A WBC 62 and LE moderate. Urine cultures grew ESBL e. coli. Abdominal and pelvis CT show Moderate right hydroureteronephrosis with right nephroureteral stent in place, no ureteral calculus. Currently being treated with Levofloxacin. 3. ? Pneumonia CAP : abdomen and pelvis CT show Bibasilar pulmonary opacities may reflect atelectasis versus pneumonia. 4. CoNS Bacteremia: Blood cultures grew coag negative staph 1, out of 4 bottles, likely contaminant. Repeat cultures show no growth thus far. 5. 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 Primary language Nepali, communication via interpretation line. Stated that she was feeling better today. Discussion with patient regarding importance of OPAT therapy, verbalized understanding, agreed to MIDLINE. Discharge instructions discussed. Objective - Exam Narrative Exam: Constitutional: Alert, cooperative. No acute distress Head, Ears, Nose: Normocephalic, atraumatic. External ears, nose normal Eyes: Conjunctivae/corneas clear. No icterus. No ptosis. Neck: Supple, no meningeal signs Oral: dentition fair, no thrush thrush Cardiovascular: S1, S2 normal. Respiratory: Good air entry, clear to auscultation bilaterally, + cough, no sputum production GI: Soft, non-tender; bowel sounds normal. No peritoneal signs, + CVA tenderness- improved Musculoskeletal: No pedal edema, no cyanosis. Skin: No rash or abscess. Hem/Lymphatic: No palpable cervical or supraclavicular nodes. No lymphangitis Psych: Mood ok. Affect normal Neurological: Awake, alert, oriented. - Constitutional Vitals: Vital Signs Temp Pulse Resp BP Pulse Ox 98.3 F 66 16 100/69 99 08/26/18 05:16 08/26/18 05:16 08/26/18 05:16 08/26/18 05:16 08/26/18 05:16 Temperature -Last 24 Hours Temperature 98.3 F Temperature 99.0 F Temperature 98.4 F Temperature 98.5 F - Labs CBC & Chem 7: 08/23/18 06:45 08/23/18 06:45
[2018-08-26] MEDS: DILAUDID IV PRN ×2 (14:18→23:23)
--- NOTE | 2018-08-26 14:20 | Progress Note ---
Assessment and Plan Assessment and plan: Patient is 33 yo woman with h/o Nephrolithiasis who was POD #2 S/P Cysto laser Ureteroscopy presented to ED for evaluation of nausea, vomiting, fever and right side flank pains over the past 2 days following the procedure. She was found to have UTI complicated by Sepsis. Pt was hypotensive with systolic BP in the 80's. Pt initiated on sepsis protocol and admitted to medical floor. Urology consulted in ED recommended medical management for infection. * CT abdomen/pelvis: 1. Moderate right hydroureteronephrosis with right nephroureteral stent in place. No ureteral calculus. 2. Non-obstructing right renal calculus. 3. Hepatic steatosis and hepatomegaly. 4. Cholelithiasis. 5. Bibasilar pulmonary opacities may reflect atelectasis versus pneumonia. * HIDA scan: There is progressive filling of the central biliary ducts, common bile duct and bowel loops in the appropriate time frame. There is nonvisualiza tion of the gallbladder at 60 minutes. The patient terminated the examination at 60 minutes due to pain. * Previous Cultures: 07/16/18 Urine: Enterococcus faecalis, olivares susceptible * Cultures: 08/20/2018 Blood: Coag negative Staph, 1 out of 4 bottles, 08/20/2018 Urine: ESBL E. Coli, 08/21/2018 Blood: no growth to date /Sepsis due to UTI and B/L PNA: contact precautions for ESBL, IV antibiotic therapy per ID, IVF resuscitation therapy, repeat negative blood cultures and + urine cx /Gm positive bacteremia - coag negative staph, - repeat blood cx negative, - likely contamination /UTI (urinary tract infection), cx growing ESBL? consulted ID, -Continue meropenem 1 g IV q12h total 1 week, -upon discharge will need ertapenem 1 gm IV qday x total 7 days - until 08/31/18, -Order placed with case management to [facility] , pt has no insurance and undocumented /Cholelithiasis, ordered HIDA scan - gall bladder was not visualized /Suspected b/l PNA --Continue azithormycin 500 mg IV qday for CAP, / DVT prophylaxis SCD to BLE while in bed Disposition: picc line today and d/c with home IV abx already set up per case management. History Interval history: Patient was seen and examined. Follow-up on current diagnosis sepsis uti. Overnight uneventful. Patient denies any chest pain, shortness breath, nausea/vomiting or severe headaches. Imaging, nursing note, chart, labs and old chart reviewed. Discussed with patient. District Fire Management Officer service used Hospitalist Physical - Physical exam Narrative exam: Gen: WDWN, NAD, Awake, Alert, Orientated HEENT: NCAT, EOMI, PERRL, OP Clear Neck: supple, no adenopathy, no thyromegaly, no JVD CVS/Heart: RRR, normal S1S2, pulses present bilaterally Chest/Lungs: CTA B, Symmetrical chest expansion, good air entry bilaterally GI/Abdomen: soft, NTND, good bowel sounds, no guarding or rebound /Bladder: no suprapubic tenderness, no CVA or paraspinal tenderness Extermity/Skin: no c/c/e, no obvious rash MSK: FROM x 4 Neuro: CN 2-12 grossly intact, no new focal deficits Psych: calm - Constitutional Vitals: Temp Pulse Resp BP Pulse Ox 98.1 F 79 22 114/73 98 08/26/18 11:41 08/26/18 11:41 08/26/18 11:41 08/26/18 11:41 08/26/18 11:41 General appearance: Present: no acute distress, obese Results - Labs CBC & Chem 7: 08/23/18 06:45 08/23/18 06:45 Labs: Laboratory Last Values WBC 5.0 K/mm3 (4.5-11.0) 08/23/18 06:45 RBC 4.39 M/mm3 (3.65-5.03) 08/23/18 06:45 Hgb 11.8 gm/dl (10.1-14.3) 08/23/18 06:45 Hct 36.5 % (30.3-42.9) 08/23/18 06:45 MCV 83 fl (79-97) 08/23/18 06:45 MCH 27 pg (28-32) L 08/23/18 06:45 MCHC 32 % (30-34) 08/23/18 06:45 RDW 13.7 % (13.2-15.2) 08/23/18 06:45 Plt Count 223 K/mm3 (140-440) 08/23/18 06:45 Lymph % (Auto) 39.6 % (13.4-35.0) H 08/23/18 06:45 [place] % (Auto) 11.4 % (0.0-7.3) H 08/23/18 06:45 Eos % (Auto) 6.2 % (0.0-4.3) H 08/23/18 06:45 Baso % (Auto) 0.4 % (0.0-1.8) 08/23/18 06:45 Lymph # 2.0 K/mm3 (1.2-5.4) 08/23/18 06:45 [place] # 0.6 K/mm3 (0.0-0.8) 08/23/18 06:45 Eos # 0.3 K/mm3 (0.0-0.4) 08/23/18 06:45 Baso # 0.0 K/mm3 (0.0-0.1) 08/23/18 06:45 Seg Neutrophils % 42.4 % (40.0-70.0) 08/23/18 06:45 Seg Neutrophils # 2.1 K/mm3 (1.8-7.7) 08/23/18 06:45 PT 12.8 Sec. (12.2-14.9) 08/20/18 07:55 INR 0.91 (0.87-1.13) 08/20/18 07:55 VBG pH 7.419 (7.320-7.420) 08/20/18 07:55 Sodium 136 mmol/L (137-145) L 08/23/18 06:45 Potassium 4.2 mmol/L (3.6-5.0) 08/23/18 06:45 Chloride 102.3 mmol/L (98-107) 08/23/18 06:45 Carbon Dioxide 20 mmol/L (22-30) L 08/23/18 06:45 Anion Gap 18 mmol/L 08/23/18 06:45 BUN 8 mg/dL (7-17) 08/23/18 06:45 Creatinine 0.4 mg/dL (0.7-1.2) L 08/23/18 06:45 Estimated GFR > 60 ml/min 08/23/18 06:45 BUN/Creatinine Ratio 20 % 08/23/18 06:45 Glucose 105 mg/dL (65-100) H 08/23/18 06:45 Lactic Acid 1.70 mmol/L (0.7-2.0) 08/20/18 16:56 Calcium 8.4 mg/dL (8.4-10.2) 08/23/18 06:45 Total Bilirubin 1.40 mg/dL (0.1-1.2) H 08/20/18 07:55 AST 21 units/L (5-40) 08/20/18 07:55 ALT 44 units/L (7-56) 08/20/18 07:55 Alkaline Phosphatase 87 units/L (35-129) 08/20/18 07:55 Total Protein 7.6 g/dL (6.3-8.2) 08/20/18 07:55 Albumin 4.6 g/dL (3.9-5) 08/20/18 07:55 Albumin/Globulin Ratio 1.5 % 08/20/18 07:55 Urine Color Straw (Yellow) 08/20/18 09:25 Urine Turbidity Clear (Clear) 08/20/18 09:25 Urine pH 6.0 (5.0-7.0) 08/20/18 09:25 Ur Specific [place] 1.005 (1.003-1.030) 08/20/18 09:25 Urine Protein <15 mg/dl mg/dL (Negative) 08/20/18 09:25 Urine Glucose (UA) Neg mg/dL (Negative) 08/20/18 09:25 Urine Ketones Neg mg/dL (Negative) 08/20/18 09:25 Urine Blood Mod (Negative) 08/20/18 09:25 Urine Nitrite Pos (Negative) 08/20/18 09:25 Urine Bilirubin Neg (Negative) 08/20/18 09:25 Urine Urobilinogen < 2.0 mg/dL (<2.0) 08/20/18 09:25 Ur Leukocyte Esterase Mod (Negative) 08/20/18 09:25 Urine WBC (Auto) 62.0 /HPF (0.0-6.0) H 08/20/18 09:25 Urine RBC (Auto) 14.0 /HPF (0.0-6.0) 08/20/18 09:25 U Epithel Cells (Auto) 1.0 /HPF (0-13.0) 02/21/19 09:25 Urine Bacteria (Auto) 1+ /HPF (Negative) 08/20/18 09:25 Urine Mucus Few /HPF 08/20/18 09:25
[2018-08-26] MEDS: ZITHROMAX 500 MG in NACL 0.9% 250ML 250 ML IV SCH (18:14)
[2018-08-26] MEDS: LOVENOX SUB-Q SCH ×2 (22:45→22:46)
[2018-08-26] MEDS ORDERED: BENADRYL IV PRN (23:50)
[2018-08-27] MEDS: MERREM 1,000 MG in NACL 0.9% 100 ML IV SCH (05:00)
[2018-08-27 05:53] VITALS: BP 96/64
[2018-08-27] MEDS: SODIUM CHLORIDE FLUSH SYRINGE 10 ML IV SCH (09:38)
--- NOTE | 2018-08-27 11:42 | Discharge Summary ---
Providers - Providers Date of Admission: 08/20/18 12:35 Date of discharge: 08/27/18 Attending physician: TERRY PEREZ 08/20/18 14:15 Consult to Physician [CONS] Routine Comment: Dr. Brewster notified @ 13:42- [facility] Consulting Provider: GEORGINA BREWSTER Physician Instructions: Reason For Exam: sepsis with mild hydro 08/23/18 12:23 Consult to Physician [CONS] Routine Comment: Consulting Provider: GRISEL SHAHID Physician Instructions: Reason For Exam: ESBL UTI 08/23/18 17:18 Consult to Case Management [CONS] Urgent Services Needed at Discharge: Home Health Services Notified:: no Additional Physician Instructions: [facility] ([facility] M [phone] O [phone] F [phone] OUTPATIENT PARENTERAL ANTIBIOTIC THERAPY ORDERS Diagnoses:Complicated Urinary Tract infection Antimicrobial administration: upon discharge will do ertapenem 1 gm IV qday x total 7 days Remove Midline after last dose unless otherwise instructed. Lines: MIdline Lab monitoring: CBC, BUN, Creatinine, ALT, AST, U/A once a week preferly on Friday morning. Please fax results to [phone] and call [phone] for critical lab results. Kym Walden NP/Grisel Santoyo MD Date: 08/23/18 08/23/18 17:20 PICC Line Placement [Consult to PICC Line RN] [CONS] Urgent Reason For Exam: out patient antibiotic therapy Type Line:: Midline 08/26/18 10:50 PICC Line Insertion [Consult to PICC Line RN] [CONS] Stat Reason For Exam: outpatient antibiotic therapy Type Line:: Midline Primary care physician: EXCAVATOR OPERATOR Hospitalization Condition: Stable Hospital course: Patient is 33 yo woman with h/o Nephrolithiasis who was POD #2 S/P Cysto laser Ureteroscopy presented to ED for evaluation of nausea, vomiting, fever and right side flank pains over the past 2 days following the procedure. She was found to have UTI complicated by Sepsis. Pt was hypotensive with systolic BP in the 80's. Pt initiated on sepsis protocol and admitted to medical floor. Urology consulted in ED recommended medical management for infection. * CT abdomen/pelvis: 1. Moderate right hydroureteronephrosis with right nephroureteral stent in place. No ureteral calculus. 2. Non-obstructing right renal calculus. 3. Hepatic steatosis and hepatomegaly. 4. Cholelithiasis. 5. Bibasilar pulmonary opacities may reflect atelectasis versus pneumonia. * HIDA scan: There is progressive filling of the central biliary ducts, common bile duct and bowel loops in the appropriate time frame. There is n onvisualization of the gallbladder at 60 minutes. The patient terminated the examination at 60 minutes due to pain. * Previous Cultures: 07/16/18 Urine: Enterococcus faecalis, olivares susceptible * Cultures: 08/20/2018 Blood: Coag negative Staph, 1 out of 4 bottles, 08/20/2018 Urine: ESBL E. Coli, 08/21/2018 Blood: no growth to date /Sepsis due to UTI and B/L PNA: contact precautions for ESBL, IV antibiotic therapy per ID, IVF resuscitation therapy, repeat negative blood cultures and + urine cx /Gm positive bacteremia - coag negative staph, - repeat blood cx negative, - likely contamination /UTI (urinary tract infection), cx growing ESBL? consulted ID, -Continue meropenem 1 g IV q12h total 1 week, -upon discharge will need ertapenem 1 gm IV qday x total 7 days - until 08/31/18, -Order placed with case management to arrange , pt has no insurance and undocumented /Cholelithiasis, ordered HIDA scan - gall bladder was not visualized /Suspected b/l PNA --Continue azithormycin 500 mg IV qday for CAP, / DVT prophylaxis SCD to BLE while in bed Disposition: picc line 08/26/18 and d/c with home IV abx already set up per case management. Disposition: DC-01 TO HOME OR SELFCARE Time spent for discharge: 32 mintues Core Measure Documentation - Palliative Care Palliative Care/ Comfort Measures: Not Applicable - Core Measures Any of the following diagnoses?: none - VTE Discharge Requirements Deep Vein Thrombosis/Pulmonary Embolism Present on Admission: No Has pt received <5 days of overlap therapy or INR<2.0: No Anticoagulant overlap therapy prescribed at discharge: No Contraindication No Overlap Therapy order at DC: Not Indicated Exam - Physical Exam Narrative exam: Gen: WDWN, NAD, Awake, Alert, Orientated HEENT: NCAT, EOMI, PERRL, OP Clear Neck: supple, no adenopathy, no thyromegaly, no JVD CVS/Heart: RRR, normal S1S2, pulses present bilaterally Chest/Lungs: CTA B, Symmetrical chest expansion, good air entry bilaterally GI/Abdomen: soft, NTND, good bowel sounds, no guarding or rebound /Bladder: no suprapubic tenderness, no CVA or paraspinal tenderness Extermity/Skin: no c/c/e, no obvious rash MSK: FROM x 4 Neuro: CN 2-12 grossly intact, no new focal deficits Psych: calm - Constitutional Vitals: Temp Pulse Resp BP Pulse Ox 98.4 F 58 L 18 96/64 98 08/27/18 05:16 08/27/18 05:16 08/27/18 10:00 08/27/18 05:16 08/27/18 05:16 Plan Activity: other (no strenous activity unless cleared by Infectious Disease) Diet: regular Additional Instructions: Last day of IV abx is 08/31/2018 Follow up with: REJI PARRA MD [Primary Care Provider] - 3-5 Days GRISEL SHAHID MD [Staff Physician] - 7 Days
== END 2018-08-27 11:00 | disposition home or self-care (01) | DRG 871 ==
LOC: ED 07:46 → 3A 12:35
PROVIDERS: ADMIT Internal Medicine; ATTEND Internal Medicine
PROC: 05HY33Z Insertion of Infusion Device into Upper Vein, Percutaneous Approach (ICD-10-PCS; principal; 2018-08-24)
PROC: 05HY33Z Insertion of Infusion Device into Upper Vein, Percutaneous Approach (ICD-10-PCS; 2018-08-26)
DX: A41.9 Sepsis, unspecified organism (principal); J18.1 Lobar pneumonia, unspecified organism; N39.0 Urinary tract infection, site not specified; J98.11 Atelectasis; K80.20 Calculus of gallbladder without cholecystitis without obstruction; B96.20 Unspecified Escherichia coli [E. coli] as the cause of diseases classified elsewhere; Z16.12 Extended spectrum beta lactamase (ESBL) resistance; Z79.899 Other long term (current) drug therapy; Z87.442 Personal history of urinary calculi
CPT/HCPCS: 36415; 71045; 74176; 78226; 80048; 80053; 81001; 82140; 82805; 85025; 85610; 87040; 87076; 87086; 87186; 93005; 93010; 96361; 96365; 96367; 96375; G0378; A9537; J0456; J0692; J1170; J1200; J1650; J1956; J2185; J2270; J2405; J3370; J7030; J7040; J7050

== ENCOUNTER 2018-08-29 13:33 | Emergency (ER) | payer OTHER, SELFPAY ==
--- NOTE | 2018-08-29 13:40 | Emergency Department Report ---
Blank Doc - Documentation Documentation: 33 yo had urethral stent placed in by Dr Chaudhry for renal stone co mplications. she was septic and was admitted. She is here today c/o lower abdominal pain and that stent came out. Denies back pain . PE: noted blue stent in under wear. ABD- mild TTP his initial assessment diagnostic orders/clinical plan/treatment (s) is/Are subject change based on patient's health status, clinical progression and re- assessment by fellow clinical providers in the ED. Further treatment and work-up at subsequent clinical providers discetion. Patient/guardians urged not to elope from s their condition may be serious if not clinically assessed and managed. Inital order include:Labs
[2018-08-29] MEDS ORDERED: ZOFRAN IV ONE (13:49)
[2018-08-29] MEDS ORDERED: DILAUDID IV ONE (13:49)
[2018-08-29 14:04] LABS: Basophils % (Auto) 0.6 % (0.0-1.8); Eosinophils # (Auto) 0.2 K/mm3 (0.0-0.4); Eosinophils % (Auto) 3.3 % (0.0-4.3); Hematocrit 40.7 % (30.3-42.9); Hemoglobin 13.6 gm/dl (10.1-14.3); Lymphocytes # (Auto) 2.6 K/mm3 (1.2-5.4); Mean Corpuscular HGB Conc 33 % (30-34); Mean Corpuscular Volume 83 fl (79-97); Monocytes # (Auto) 0.3 K/mm3 (0.0-0.8); Monocytes % (Auto) 5.1 % (0.0-7.3); Platelet Count 358 K/mm3 (140-440); Red Blood Count 4.91 M/mm3 (3.65-5.03); Red Cell Distribution Width 13.4 % (13.2-15.2)
[2018-08-29 14:23] LABS: BUN/Creatinine Ratio 30; Blood Urea Nitrogen 12 mg/dL (7-17); Calcium 9.2 mg/dL (8.4-10.2); Hemolysis Index 11
[2018-08-29] MEDS ORDERED: NACL 0.9% 1000 ML 1,000 ML IV ONE (17:01)
[2018-08-29] MEDS ORDERED: TORADOL IV ONE (17:09)
--- NOTE | 2018-08-29 17:10 | Emergency Department Report ---
ED Female HPI - General Chief complaint: Abdominal Pain Stated complaint: PACKAGING FELL OFF Time Seen by Provider: 08/29/18 13:38 Source: patient Mode of arrival: Ambulatory Limitations: Language Barrier - History of Present Illness Initial comments: 33-year-old female presents to the ED due to ureteral stent dislodgement. Patient had stent placed due to kidney stone and hydronephrosis approximately 2 weeks ago. She then had admission a few days later for urosepsis. Discharged 2 days ago w/ PICC line for meropenem and ertapenem. Stent is currently partially hanging out of her urethra. Reports urethral pain. -: This morning Location: other (urethra) Severity: moderate Consistency: intermittent Improves with: none Worsens with: none - Related Data Home Medications Medication Instructions Recorded Confirmed Last Taken Amoxicillin [Trimox CAP] 500 mg PO TID 08/20/18 08/20/18 Unknown HYDROcodone/APAP 10-325 [[place] 1 each PO Q6HR PRN 08/20/18 08/20/18 Unknown 10-325 mg TAB] Ondansetron [Zofran TAB] 4 mg PO Q8HR PRN 08/20/18 08/20/18 Unknown Previous Rx's Medication Instructions Recorded Last Taken Type Acetaminophen [Acetaminophen TAB] 650 mg PO Q4H PRN #15 tablet 07/21/18 08/17/18 Rx Acetaminophen [Acetaminophen TAB] 650 mg PO Q4H PRN #15 tablet 08/27/18 Unknown Rx Meropenem [Merrem] 1,000 mg IV Q8HR vial 08/27/18 Unknown Rx Allergies Allergy/AdvReac Type Severity Reaction Status Date / Time No Known Allergies Allergy Verified 08/20/18 07:47 ED Review of Systems ROS: Stated complaint: PACKAGING FELL OFF Other details as noted in HPI Comment: All other systems reviewed and negative Constitutional: denies: fever Gastrointestinal: abdominal pain. denies: nausea, vomiting Genitourinary: other (reporst uretereal stent dislodged) ED Past Medical Hx - Past Medical History Hx Hypertension: No Hx Congestive Heart Failure: No Hx Diabetes: No Hx Deep Vein Thrombosis: No Hx Renal Disease: No Hx Sickle Cell Disease: No Hx Seizures: No Hx Kidney Stones: Yes Hx Asthma: No Hx COPD: No Hx HIV: No Additional medical history: kidney stones - Surgical History Hx Pacemaker: No Hx Internal Defibrillator: No - Social History Smoking Status: Never Smoker Substance Use Type: None - Medications Home Medications: Home Medications Medication Instructions Recorded Confirmed Last Taken Type Acetaminophen [Acetaminophen TAB] 650 mg PO Q4H PRN #15 tablet 07/21/18 08/20/18 08/17/18 Rx Amoxicillin [Trimox CAP] 500 mg PO TID 08/20/18 08/20/18 Unknown History HYDROcodone/APAP 10-325 [[place] 1 each PO Q6HR PRN 08/20/18 08/20/18 Unknown History 10-325 mg TAB] Ondansetron [Zofran TAB] 4 mg PO Q8HR PRN 08/20/18 08/20/18 Unknown History Acetaminophen [Acetaminophen TAB] 650 mg PO Q4H PRN #15 tablet 08/27/18 Unknown Rx Meropenem [Merrem] 1,000 mg IV Q8HR vial 08/27/18 Unknown Rx ED Physical Exam - General Limitations: Language Barrier General appearance: alert, in no apparent distress - Head Head exam: Present: atraumatic, normocephalic - Eye Eye exam: Present: normal appearance - ENT ENT exam: Present: mucous membranes moist - Neck Neck exam: Present: normal inspection - Respiratory Respiratory exam: Present: normal lung sounds bilaterally. Absent: respiratory distress - Cardiovascular Cardiovascular Exam: Present: regular rate, normal rhythm - GI/Abdominal GI/Abdominal exam: Present: soft. Absent: distended, tenderness - External exam: Present: other (approx 10 cm of ureteral stent hanging from urethra) - Extremities Exam Extremities exam: Present: normal inspection - Neurological Exam Neurological exam: Present: alert, oriented X3 - Psychiatric Psychiatric exam: Present: normal affect, normal mood - Skin Skin exam: Present: warm, dry, intact, normal color ED Course Vital Signs 08/29/18 08/29/18 08/29/18 13:40 17:05 18:22 Temperature 98.9 F Pulse Rate 97 H 84 64 Respiratory 18 16 16 Rate Blood Pressure 129/90 Blood Pressure 96/51 109/64 [Left] O2 Sat by Pulse 98 96 98 Oximetry - Consultations Consultation #1: 08/29/18 17:42 Dr Méndez paged. 08/29/18 18:03 Spoke w/ Dr Sparks, covering for Dev. Advised me to remove the stent since mostly out anyway. States pt does not need CT scan. Pt currently on IV abx via PICC line. Pt to f/u in office. ED Medical Decision Making - Lab Data Result diagrams: 08/29/18 13:56 08/29/18 13:51 - Medical Decision Making Patient presents to ED with dislodged ureteral stent. Patient was discharged 2 days ago from this hospital, was admitted for urosepsis. Patient currently has a PICC line in place on IV antibiotics. Patient is currently afebrile, wbc's normal. Approximately 10 cm of ureteral stent was hanging out of her urethra. I was instructed by urologist to remove it. Stent was pulled, no complications. Patient reports urethral pain improved. Pt had one low BP, posibly due to receiving IV dilaudid. BP has been normal since. Currently SBP 120s. Will discharge at this time. Patient advised to follow up w/ Dr éMndez next week. Critical care attestation.: If time is entered above; I have spent that time in minutes in the direct care of this critically ill patient, excluding procedure time. ED Disposition Clinical Impression: Ureteral stent displacement Disposition: - TO HOME OR SELFCARE Is pt being admited?: No Condition: Stable Referrals: GEORGINA MÉNDEZ MD [Staff Physician] - 3-5 Days Time of Disposition: 18:05
[2018-08-29 18:22] VITALS: BP 109/64
== END 2018-08-29 18:27 | disposition home or self-care (01) ==
LOC: ED 13:33
DX: T83.122A Displacement of indwelling ureteral stent, initial encounter (principal); Z87.442 Personal history of urinary calculi; Y92.89 Other specified places as the place of occurrence of the external cause
CPT/HCPCS: 36415; 80048; 84703; 85025; 96361; 96374; 96375; 99283; J1170; J1885; J2405; J7030

== ENCOUNTER 2018-09-17 10:25 | Outpatient (CLI) | payer SELFPAY ==
[2018-09-17 11:12] LABS: Bacteria,Urine 1+ /HPF (Negative); Bilirubin,Urine NEG (Negative); Blood,Urine SM (Negative); Color,Urine Yellow (Yellow); Mucus,Urine 1+ /HPF; Urobilinogen,Urine < 2.0 mg/dL (<2.0)
== END 2018-09-17 10:26 | disposition home or self-care (01) ==
LOC: LAB 10:25
PROVIDERS: ATTEND Surgery
DX: N39.0 Urinary tract infection, site not specified (principal); E66.9 Obesity, unspecified
CPT/HCPCS: 81001; 87086

== ENCOUNTER 2018-10-08 11:13 | Day surgery (SDC) | payer SELFPAY ==
[~2018-10-08 11:13] MED LIST: ANCEF/STERILE WATER 2 GM/20 ML 2 GM/20 ML SYRINGE IV NR; LACTATED RINGERS 1,000 ML IV SCH; LYRICA 25 MG, LYRICA 75 MG PO ONE; LYRICA PO NR; TYLENOL PO ONE
[2018-10-08] MEDS ORDERED: TYLENOL PO ONE (12:08)
[2018-10-08] MEDS ORDERED: VERSED IV ONE (12:32)
[2018-10-08] MEDS ORDERED: TRANSDERM-SCOP TD NR (12:33)
--- NOTE | 2018-10-08 12:37 | Anesthesia Day of Surgery ---
Anesthesia Day of Surgery - Day of Surgery Patient Examined: Yes Patient H&P Reviewed: Yes Patient is NPO: Yes
--- NOTE | 2018-10-08 12:37 | Anesthesia Consultation ---
Anesthesia Consult and Med Hx Date of service: 10/08/18 - Airway Anesthetic Teeth Evaluation: Good ROM Head & Neck: Adequate Mental/Hyoid Distance: Adequate Mallampati Class: Class III Intubation Access Assessment: Possibly Difficult - Pulmonary Exam CTA: Yes - Cardiac Exam Cardiac Exam: RRR - Pre-Operative Health Status ASA Pre-Surgery Classification: ASA2 Proposed Anesthetic Plan: General - Pulmonary Hx Smoking: No Hx Asthma: No Hx Respiratory Symptoms: No - Cardiovascular System Hx Hypertension: No Hx Heart Attack/AMI: No - Central Nervous System Hx Seizures: No CVA: No - Gastrointestinal Hx Gastroesophageal Reflux Disease: No - Endocrine Hx Renal Disease: No Hx Liver Disease: No Hx Insulin Dependent Diabetes: No Hx Non-Insulin Dependent Diabetes: No Hx Thyroid Disease: No - Other Systems Hx Obesity: Yes - Additional Comments Anesthesia Medical History Comments: Hx PONV with previous anesthetic.
[2018-10-08] MEDS ORDERED: SUBLIMAZE ONE (13:39)
[2018-10-08] MEDS ORDERED: DECADRON ONE (13:40)
[2018-10-08] MEDS ORDERED: TORADOL ONE (13:40)
[2018-10-08] MEDS ORDERED: DIPRIVAN 10 MG/ML IV ONE (13:40)
[2018-10-08] MEDS ORDERED: XYLOCAINE MPF 2% ONE (13:40)
[2018-10-08] MEDS ORDERED: ZEMURON IV ONE (13:40)
[2018-10-08] MEDS ORDERED: ZOFRAN ONE (13:40)
[2018-10-08] MEDS ORDERED: XYLOCAINE 1% 20 mL ONE (13:46)
[2018-10-08] MEDS ORDERED: MARCAINE 0.5% INFILTRATI ONE ×2 (13:46→14:45)
[2018-10-08] MEDS ORDERED: XYLOCAINE 1% 20 mL INFILTRATI ONE (14:46)
[2018-10-08] MEDS ORDERED: WATER FOR IRRIG STERILE IR ONE (14:47)
--- NOTE | 2018-10-08 15:23 | Short Stay Summary ---
Short Stay Documentation Date of service: 10/08/18 - History H&P: obtained from office - Allergies and Medications Current Medications: Allergies No Known Allergies Allergy (Verified 10/05/18 09:13) Home Medications Medication Instructions Recorded Confirmed Last Taken Type No Known Home Medications [No 10/05/18 10/05/18 Unknown History Reported Home Medications] Active Medications Celecoxib (Celebrex) 200 mg PO PREOP NR Stop: 10/08/18 23:59 Last Admin: 10/08/18 12:35 Dose: 200 mg Documented by: Hydromorphone HCl (Dilaudid) 0.5 mg IV Q10MIN PRN PRN Reason: Pain , Severe (7-10) Cefazolin Sodium (Ancef/Sterile Water 2 Gm/20 Ml) 2 gm in 20 mls @ 80 mls/hr IV PREOP NR; Protocol Stop: 10/08/18 23:59 Lactated Ringer's (Lactated Ringers) 1,000 mls @ 75 mls/hr IV DIRECT EMERSON Last Admin: 10/08/18 12:10 Dose: 75 mls/hr Documented by: Pregabalin (Lyrica) 25 mg PO PREOP NR Stop: 10/08/18 23:59 Last Admin: 10/08/18 12:35 Dose: 25 mg Documented by: Pregabalin (Lyrica) 75 mg PO PREOP NR Stop: 10/08/18 23:59 Last Admin: 10/08/18 12:35 Dose: 75 mg Documented by: Scopolamine (Transderm-Scop) 1 each TD PREOP NR Stop: 10/08/18 23:59 Last Admin: 10/08/18 12:45 Dose: 1 each Documented by: - Physical exam General appearance: no acute distress Lungs: Normal air movement Neurological: Normal speech - Brief post op/procedure progress note Date of procedure: 10/08/18 (dictation:[id number]) Pre-op diagnosis: cholecystitis Post-op diagnosis: same Procedure: robotic cholecystectomy Anesthesia: GETA Findings: adhesions to GB. soft GB Surgeon: ALIYAH LIVINGSTON Pump Runner: GABBI LARA Estimated blood loss: minimal Pathology: list (GB) Specimen disposition: to lab Condition: stable - Hospital course Hospital course: uneventful - Disposition Condition at discharge: Stable Disposition: DC-01 TO HOME OR SELFCARE Short Stay Discharge Plan Activity: other (no driving until cleared by surgeon) Diet: regular Wound: open to air, keep clean and dry, other (May shower tomorrow. Pat dry wounds. Apply ice pack to umbilical area for 10-15min/4-5 times a day) Special Instructions: no heavy lifting (or strenuous activity for 6 weeks) Follow up with: PAYTON DAUGHERTY MD [Primary Care Provider] - 7 Days ALIYAH LIVINGSTON MD [Staff Physician] - 14 Days Prescriptions: HYDROcodone/APAP 5-325 [[place] 5/325] 1 each PO Q6HR PRN #30 tablet PRN Reason: Pain
[2018-10-08] MEDS: DILAUDID IV PRN ×3 (15:48→16:10)
[2018-10-08] MEDS ORDERED: NEO SYNEPHRINE ONE (16:51)
[2018-10-08] MEDS ORDERED: NEO SYNEPHRINE/NS Syringe(OR USE) IV ONE ×2 (16:57→19:00)
[2018-10-08] MEDS ORDERED: NORCO 5/325 PO PRN (17:39)
[2018-10-08 19:19] VITALS: BP 110/75
--- NOTE | 2018-10-08 20:46 | Operative Report ---
PREOPERATIVE DIAGNOSIS: Cholecystitis. POSTOPERATIVE DIAGNOSIS: Cholecystitis. PROCEDURE: Robotic cholecystectomy. ATTENDING PHYSICIAN: Travon Conklin MD OPERATIONS MANAGER/COORDINATOR: Izzy Sy DO ANESTHESIA: General. ESTIMATED BLOOD LOSS: Minimal. FINDINGS: Relatively soft, slightly dilated gallbladder with adhesions to the adjacent omentum. SPECIMEN: Gallbladder. DRAINS: None. COMPLICATIONS: Stable, transferred to Recovery Room. INDICATIONS: This is a 33-year-old female who originally was admitted for urologic issues. She continued to have right-sided abdominal pain. After their therapy was completed, workup suggested cholecystitis based on nonvisualization of the gallbladder on HIDA scan. She was referred to General Surgery. Patient was assessed to be in need for cholecystectomy. Procedure, risks, and benefits were explained. Risks included, but were not limited to infection, bleeding, pain, injury to surrounding structures, possible need for open surgery, and possible need for further procedures in the future. The patient understood and consented. OPERATIVE NOTE: The patient was brought to the operating room and placed on the table in supine position. After adequate general anesthesia was established, the patient was positioned appropriately for a robotic cholecystectomy. Sterile prep and drape was performed. Timeout was called. The da Bertram robot was brought into position. I began by placing a Veress needle in the left upper quadrant. I was able to insufflate on the first attempt. Once the abdomen was sufficiently insufflated, I removed the needle and then placed a 5 mm port in that location using Optiview technique. I entered the peritoneal cavity safely. From there, I inspected the abdomen and then under direct visualization placed two 8 mm ports on the right side of the abdomen and a 12 mm port at the base of the umbilicus as she had a known umbilical defect that I was planning to fix at the end of the case and then I replaced the 5 mm port that I had originally used with an 8 mm port. The patient was in reverse Trendelenburg position and rotated to his left. The robot was docked. I then inserted the instruments and camera; positioned everything under direct visualization and then I broke scrub to go to the console. I began by taking down all the adhesions between the omentum and the gallbladder. Thereafter, I retracted the gallbladder over the liver edge and dissected out the triangle of Calot. I was able to clearly identify the cystic duct, cystic artery, and we were also able to see the tenting of the common duct. Two clips were placed distally, 1 proximally on the cystic duct in relation to the gallbladder. Clips were placed on either side of cystic artery, both divided sharply. I then took down the rest of the gallbladder and attachments with scissors. Originally, we used a hook. The gallbladder was removed in its entirety. We had no bleeding from the bed whatsoever. The clips were clearly in place and there was no evidence of any bile leak or bleeding. Gallbladder was placed in the EndoCatch bag and eventually removed from the 12 mm port site. Once we had the gallbladder, everything looked good. We then undocked the robot and went to a laparoscopic approach. The gallbladder was easily removed from the umbilical port site. Using the Stefan-Jack fascial closure device, we closed the umbilical defect with a 0 Vicryl stitch. The other ports were partially removed to make sure there was no bleeding and there was none. Abdomen was desufflated. All ports were removed. Additionally, local was injected into all the port sites. Skin was closed with 4-0 Monocryl subcuticular stitches. Skin was cleaned and dried. Dermabond was placed. The patient tolerated procedure well. There were no complications. All counts were correct at the end of the case. JOB# [id number] PRAVEEN/MOISE
== END 2018-10-08 19:15 | disposition home or self-care (01) ==
LOC: OR 11:13
PROVIDERS: ATTEND Surgery
DX: K80.18 Calculus of gallbladder with other cholecystitis without obstruction (principal); Z79.899 Other long term (current) drug therapy; E66.9 Obesity, unspecified; Z87.440 Personal history of urinary (tract) infections; Z87.442 Personal history of urinary calculi; Z98.890 Other specified postprocedural states; Z68.34 Body mass index [BMI] 34.0-34.9, adult
CPT/HCPCS: 47562; 81025; 88304; J0690; J1100; J1170; J1885; J2250; J2370; J2405; J2704; J3010; J7120; S2900

== ENCOUNTER 2018-10-14 09:43 | Emergency (ER) | payer OTHER, SELFPAY ==
[2018-10-14] MEDS ORDERED: ZOFRAN IV ONE (10:25)
[2018-10-14] MEDS ORDERED: TORADOL IV ONE (10:25)
[2018-10-14] MEDS ORDERED: NACL 0.9% 1000 ML 1,000 ML IV ONE (10:25)
--- NOTE | 2018-10-14 10:30 | Emergency Department Report ---
ED Abdominal Pain HPI - General Chief Complaint: Abdominal Pain Stated Complaint: ABD PAIN/POST SURGERY Time Seen by Provider: 10/14/18 10:10 Source: patient, family Mode of arrival: Wheelchair Limitations: Language Barrier - History of Present Illness Initial Comments: 33-year-old female, status post laparoscopic cholecystectomy 6 days ago, presents to the ED with right upper quadrant and right lower quadrant pain. The patient had her follow-up appointment today with her surgeon, Dr. Livingston, and sent to the ED for further evaluation of her pain. Patient reports fever on yesterday, nausea, vomiting. MD Complaint: abdominal pain -: days(s) (1) Location: RLQ Radiation: none Migration to: no migration Severity: moderate Severity scale (0 -10): 10 Consistency: constant Improves With: nothing Worsens With: nothing Associated Symptoms: nausea, vomiting, fever - Related Data Previous Rx's Medication Instructions Recorded Last Taken Type HYDROcodone/APAP 5-325 [[place] 1 each PO Q6HR PRN #30 tablet 10/08/18 Unknown Rx 5/325] Dicyclomine [Bentyl] 20 mg PO QID PRN #20 tablet 10/14/18 Unknown Rx Naproxen [Naprosyn] 500 mg PO BID #20 tablet 10/14/18 Unknown Rx Phenazopyridine [Pyridium] 200 mg PO TID #6 tab 10/14/18 Unknown Rx Sulfamethoxazole/Trimethoprim 1 each PO BID #6 tablet 10/14/18 Unknown Rx [Bactrim DS TAB] Allergies Allergy/AdvReac Type Severity Reaction Status Date / Time No Known Allergies Allergy Verified 10/05/18 09:13 ED Review of Systems ROS: Stated complaint: ABD PAIN/POST SURGERY Other details as noted in HPI Comment: All other systems reviewed and negative Constitutional: fever Gastrointestinal: abdominal pain, nausea, vomiting ED Past Medical Hx - Past Medical History Previous Medical History?: No Hx Hypertension: No Hx Heart Attack/AMI: No Hx Congestive Heart Failure: No Hx Deep Vein Thrombosis: No Hx Liver Disease: No Hx Renal Disease: No Hx Seizures: No Hx Kidney Stones: (CYSTO- 07/2018) Hx Asthma: No Hx HIV: No Additional medical history: kidney stones - Surgical History Past Surgical History?: Yes Hx Cholecystectomy: Yes - Social History Smoking Status: Never Smoker Substance Use Type: None - Medications Home Medications: Home Medications Medication Instructions Recorded Confirmed Last Taken Type HYDROcodone/APAP 5-325 [[place] 1 each PO Q6HR PRN #30 tablet 10/08/18 Unknown Rx 5/325] Dicyclomine [Bentyl] 20 mg PO QID PRN #20 tablet 10/14/18 Unknown Rx Naproxen [Naprosyn] 500 mg PO BID #20 tablet 10/14/18 Unknown Rx Phenazopyridine [Pyridium] 200 mg PO TID #6 tab 10/14/18 Unknown Rx Sulfamethoxazole/Trimethoprim 1 each PO BID #6 tablet 10/14/18 Unknown Rx [Bactrim DS TAB] ED Physical Exam - General Limitations: Language Barrier General appearance: alert, in no apparent distress - Head Head exam: Present: atraumatic, normocephalic - Eye Eye exam: Present: normal appearance - ENT ENT exam: Present: mucous membranes moist - Neck Neck exam: Present: normal inspection - Respiratory Respiratory exam: Present: normal lung sounds bilaterally. Absent: respiratory distress - Cardiovascular Cardiovascular Exam: Present: regular rate, normal rhythm - GI/Abdominal GI/Abdominal exam: Present: soft, tenderness (RLQ>RUQ tenderness), other (incision sites appear clean, dry, intact). Absent: distended - Extremities Exam Extremities exam: Present: normal inspection - Neurological Exam Neurological exam: Present: alert, oriented X3 - Psychiatric Psychiatric exam: Present: normal affect, normal mood - Skin Skin exam: Present: warm, dry, intact, normal color ED Course Vital Signs 10/14/18 10/14/18 10/14/18 09:51 10:11 10:15 Temperature 98.8 F Pulse Rate 75 75 Respiratory 20 21 18 Rate Blood Pressure 105/72 113/64 Blood Pressure 105/72 [Right] O2 Sat by Pulse 98 98 98 Oximetry 10/14/18 10/14/18 10/14/18 10:20 10:30 11:00 Temperature Pulse Rate 70 58 L Respiratory 16 18 16 Rate Blood Pressure 108/70 111/65 Blood Pressure [Right] O2 Sat by Pulse 97 98 Oximetry 10/14/18 10/14/18 10/14/18 11:30 12:00 12:21 Temperature Pulse Rate 62 75 Respiratory 18 Rate Blood Pressure 97/52 97/52 97/52 Blood Pressure [Right] O2 Sat by Pulse 98 Oximetry 10/14/18 10/14/18 10/14/18 12:25 12:30 13:00 Temperature Pulse Rate 66 66 64 Respiratory 17 16 14 Rate Blood Pressure 112/64 107/65 112/64 Blood Pressure [Right] O2 Sat by Pulse 99 99 99 Oximetry 10/14/18 10/14/18 10/14/18 13:30 14:00 14:07 Temperature Pulse Rate 64 66 65 Respiratory 18 17 Rate Blood Pressure 101/57 122/37 Blood Pressure 117/65 [Right] O2 Sat by Pulse 97 98 Oximetry - Consultations Consultation #1: 10/14/18 13:50 Spoke w/ Dr Livingston. Has reviewed pt's CT. No evidence of bile leak or any other acute abnormalities. ED Medical Decision Making - Lab Data Result diagrams: 10/14/18 10:42 10/14/18 10:42 - Radiology Data Radiology results: report reviewed, image reviewed - Medical Decision Making Pt s/p lap jodi 6 days ago, in ER w/ abdominal pain. Labs unremarkable except for UA, which shows possible UTI. CT negative for any acute findings. Paimproved with toradol, morphine, and IV fluids. Pt will be given rx for bactrim, pyridium, bentyl. Outpt follow-up advised. Return precautions given. - Differential Diagnosis UTI, bile leak, appendicitis Critical care attestation.: If time is entered above; I have spent that time in minutes in the direct care of this critically ill patient, excluding procedure time. ED Disposition Clinical Impression: Urinary tract infection, Abdominal pain Disposition: -01 TO HOME OR SELFCARE Is pt being admited?: No Condition: Stable Instructions: Urinary Tract Infection in Women (ED), Abdominal Pain (ED) Prescriptions: Sulfamethoxazole/Trimethoprim [Bactrim DS TAB] 1 each PO BID #6 tablet Dicyclomine [Bentyl] 20 mg PO QID PRN #20 tablet PRN Reason: abdominal pain Naproxen [Naprosyn] 500 mg PO BID #20 tablet Phenazopyridine [Pyridium] 200 mg PO TID #6 tab Referrals: ALIYAH LIVINGSTON MD [Staff Physician] - as needed PRIMARY CARE, [Referring] - 3-5 Days Time of Disposition: 13:52
[2018-10-14 10:51] LABS: Basophils % (Auto) 0.5 % (0.0-1.8); Eosinophils # (Auto) 0.3 K/mm3 (0.0-0.4); Eosinophils % (Auto) 4.6 % (0.0-4.3); Hematocrit 42.5 % (30.3-42.9); Lymphocytes # (Auto) 2.4 K/mm3 (1.2-5.4); Lymphocytes % (Auto) 37.3 % (13.4-35.0); Mean Corpuscular HGB Conc 33 % (30-34); Mean Corpuscular Volume 83 fl (79-97); Monocytes # (Auto) 0.4 K/mm3 (0.0-0.8); Monocytes % (Auto) 6.1 % (0.0-7.3); Platelet Count 232 K/mm3 (140-440)
[2018-10-14 11:14] LABS: Alanine Aminotransferase 149 units/L (7-56); Albumin 4.2 g/dL (3.9-5); BUN/Creatinine Ratio 35; Blood Urea Nitrogen 14 mg/dL (7-17); Calcium 9.1 mg/dL (8.4-10.2); Hemolysis Index 26
[2018-10-14] MEDS ORDERED: MORPHINE IV ONE (11:25)
[2018-10-14 11:47] LABS: Bilirubin,Urine NEG (Negative); Blood,Urine NEG (Negative); Color,Urine Yellow (Yellow); Mucus,Urine 3+ /HPF
--- NOTE | 2018-10-14 13:40 | Cat Scan Report ---
PROCEDURE: CT ABDOMEN PELVIS W CON TECHNIQUE: CT of the abdomen and pelvis was performed. IV contrast was administered. No oral contrast administered. Axial images and coronal and sagittal reformatted images were obtained. HISTORY: RLQ/RUQ pain, s/p lap jodi COMPARISON: 08/20/2018 FINDINGS: There is fatty infiltration of the liver. Patient is status post cholecystectomy. There is a small amount of fluid and stranding in the gallbla dder fossa. The collection of fluid measures about 1.9 x 1.5 x 1.7 cm. This may be some residual post operative inflammatory fluid. Developing abscess not excluded. The visualized spleen, pancreas, adrenal glands and kidneys demonstrate no significant abnormality. There is no abdominal aortic aneurysm. There is no evidence for intestinal obstruction. The appendix is normal. There is no free intraperitoneal air. There is some mild diffuse bladder wall thickening. IMPRESSION: Interval cholecystectomy. Mild stranding and tiny collection of fluid in the gallbladder fossa. This could be residual postsurgical inflammatory fluid although a developing abscess not excluded. Fatty infiltration of the liver. Nonspecific mild diffuse bladder wall thickening seen. Cystitis is not excluded. This document is electronically signed by Olive Chavis MD., October 14 2018 01:38:45 PM ET
[2018-10-14 14:08] VITALS: BP 117/65
== END 2018-10-14 14:17 | disposition home or self-care (01) ==
LOC: ED 09:43
DX: N39.0 Urinary tract infection, site not specified (principal)
CPT/HCPCS: 36415; 74177; 80053; 81001; 83690; 84703; 85025; 96361; 96374; 96375; 99284; J1885; J2270; J2405; J7030; Q9967

== ENCOUNTER 2018-12-12 00:04 | Emergency (ER) | payer SELFPAY ==
[2018-12-12] MEDS ORDERED: TYLENOL ONE (00:16)
[2018-12-12 00:20] VITALS: BP 122/73
[2018-12-12] MEDS ORDERED: TYLENOL PO ONE (00:20)
--- NOTE | 2018-12-12 02:19 | Emergency Department Report ---
ED ENT HPI - General Chief complaint: Earache Stated complaint: LEFT SIDE EARACHE Source: patient Mode of arrival: Ambulatory Limitations: No Limitations - History of Present Illness Initial comments: This is a 33-year-old female who presents to the emergency room with left ear pain for 2 days. Past medical history kidney stones and chronic back pain. Patient reports the fever and currently taken Motrin at home with minimal improvement of symptoms. She also reports sore throat or rhinorrhea. She denies sick contacts. She denies drainage, Change in hearing, nausea, vomiting, and myalgia. MD complaint: ear pain Onset/Timin -: days(s) Location: L ear Severity: severe Severity scale (0 -10): 10 Quality: constant Improves with: none Worsens with: none Associated Symptoms: fever, cough, rhinorrhea. denies: gum swelling, toothache, pain with swallowing, sore throat, tinnitus, hearing loss, discharge from ear - Related Data Previous Rx's Medication Instructions Recorded Last Taken Type HYDROcodone/APAP 5-325 [[place] 1 each PO Q6HR PRN #30 tablet 10/08/18 Unknown Rx 5/325] Dicyclomine [Bentyl] 20 mg PO QID PRN #20 tablet 10/14/18 Unknown Rx Naproxen [Naprosyn] 500 mg PO BID #20 tablet 10/14/18 Unknown Rx Phenazopyridine [Pyridium] 200 mg PO TID #6 tab 10/14/18 Unknown Rx Sulfamethoxazole/Trimethoprim 1 each PO BID #6 tablet 10/14/18 Unknown Rx [Bactrim DS TAB] Acetaminophen [Acetaminophen TAB] 325 mg PO Q6HR PRN #15 tablet 12/12/18 Unknown Rx Amoxicillin [Trimox CAP] 500 mg PO BID #20 capsule 12/12/18 Unknown Rx Ibuprofen [Motrin 600 MG tab] 600 mg PO Q8H PRN #20 tablet 12/12/18 Unknown Rx Allergies Allergy/AdvReac Type Severity Reaction Status Date / Time No Known Allergies Allergy Verified 10/05/18 09:13 ED Dental HPI - General Chief complaint: Earache Stated complaint: LEFT SIDE EARACHE Source: patient Mode of arrival: Ambulatory Limitations: No Limitations - Related Data Previous Rx's Medication Instructions Recorded Last Taken Type HYDROcodone/APAP 5-325 [[place] 1 each PO Q6HR PRN #30 tablet 10/08/18 Unknown Rx 5/325] Dicyclomine [Bentyl] 20 mg PO QID PRN #20 tablet 10/14/18 Unknown Rx Naproxen [Naprosyn] 500 mg PO BID #20 tablet 10/14/18 Unknown Rx Phenazopyridine [Pyridium] 200 mg PO TID #6 tab 10/14/18 Unknown Rx Sulfamethoxazole/Trimethoprim 1 each PO BID #6 tablet 10/14/18 Unknown Rx [Bactrim DS TAB] Acetaminophen [Acetaminophen TAB] 325 mg PO Q6HR PRN #15 tablet 12/12/18 Unknown Rx Amoxicillin [Trimox CAP] 500 mg PO BID #20 capsule 12/12/18 Unknown Rx Ibuprofen [Motrin 600 MG tab] 600 mg PO Q8H PRN #20 tablet 12/12/18 Unknown Rx Allergies Allergy/AdvReac Type Severity Reaction Status Date / Time No Known Allergies Allergy Verified 10/05/18 09:13 ED Review of Systems ROS: Stated complaint: LEFT SIDE EARACHE Other details as noted in HPI Constitutional: chills, fever ENT: ear pain, throat pain Respiratory: cough. denies: shortness of breath, wheezing Cardiovascular: denies: chest pain, palpitations Gastrointestinal: denies: abdominal pain, nausea, diarrhea Musculoskeletal: denies: back pain, joint swelling, arthralgia Skin: denies: rash, lesions Neurological: denies: headache, weakness, paresthesias Psychiatric: denies: anxiety, depression ED Past Medical Hx - Past Medical History Previous Medical History?: Yes Hx Hypertension: No Hx Heart Attack/AMI: No Hx Congestive Heart Failure: No Hx Deep Vein Thrombosis: No Hx Liver Disease: No Hx Renal Disease: No Hx Seizures: No Hx Kidney Stones: Yes ([facility]- 07/2018) Hx Asthma: No Hx HIV: No Additional medical history: kidney stones - Surgical History Past Surgical History?: Yes Hx Cholecystectomy: Yes - Social History Smoking Status: Never Smoker Substance Use Type: None - Medications Home Medications: Home Medications Medication Instructions Recorded Confirmed Last Taken Type HYDROcodone/APAP 5-325 [[place] 1 each PO Q6HR PRN #30 tablet 10/08/18 Unknown Rx 5/325] Dicyclomine [Bentyl] 20 mg PO QID PRN #20 tablet 10/14/18 Unknown Rx Naproxen [Naprosyn] 500 mg PO BID #20 tablet 10/14/18 Unknown Rx Phenazopyridine [Pyridium] 200 mg PO TID #6 tab 10/14/18 Unknown Rx Sulfamethoxazole/Trimethoprim 1 each PO BID #6 tablet 10/14/18 Unknown Rx [Bactrim DS TAB] Acetaminophen [Acetaminophen TAB] 325 mg PO Q6HR PRN #15 tablet 12/12/18 Unknown Rx Amoxicillin [Trimox CAP] 500 mg PO BID #20 capsule 12/12/18 Unknown Rx Ibuprofen [Motrin 600 MG tab] 600 mg PO Q8H PRN #20 tablet 12/12/18 Unknown Rx ED Physical Exam - General Limitations: No Limitations General appearance: alert, in no apparent distress, obese - ENT ENT exam: Present: mucous membranes moist, normal external ear exam, other (turbinates congested with clear discharge). Absent: normal orophraynx (erythematous posterior pharynx, uvula midline), TM's normal bilaterally (erythematous and bulging with decreased movement TM on the left) - Neck Neck exam: Present: normal inspection - Respiratory Respiratory exam: Present: normal lung sounds bilaterally. Absent: respiratory distress - Cardiovascular Cardiovascular Exam: Present: regular rate, normal rhythm. Absent: systolic m urmur, diastolic murmur, rubs, gallop - GI/Abdominal GI/Abdominal exam: Present: soft, normal bowel sounds - Neurological Exam Neurological exam: Present: alert, oriented X3 - Psychiatric Psychiatric exam: Present: normal affect, normal mood - Skin Skin exam: Present: warm, dry, intact, normal color. Absent: rash ED Course Vital Signs 12/12/18 00:16 Temperature 98.3 F Pulse Rate 79 Respiratory 18 Rate Blood Pressure 122/73 O2 Sat by Pulse 99 Oximetry ED Medical Decision Making - Medical Decision Making Patient is stable and was examined by me. Vitals normal. Given Tylenol while in triage. Physical assessment susceptible of Otitis media of the left ear. Start amoxicillin, Tylenol and ibuprofen for pain. Discussed plan with patient and she agreed with plan. Discharged home in stable condition. Follow up with PCP in 24- 72 hours. Critical care attestation.: If time is entered above; I have spent that time in minutes in the direct care of this critically ill patient, excluding procedure time. ED Disposition Clinical Impression: Otalgia of left ear Otitis media Qualifiers: Otitis media type: suppurative Chronicity: acute Laterality: left Recurrence: non-recurrent Spontaneous tympanic membrane rupture: without spontaneous rupture Qualified Code(s): H66.002 - Acute suppurative otitis media without spontaneous rupture of ear drum, left ear Disposition: TO HOME OR SELFCARE Is pt being admited?: No Does the pt Need Aspirin: No Condition: Stable Instructions: Otitis Media (ED) Additional Instructions: Give Tylenol or ibuprofen for pain every 6-8 hours. Take antibiotics as prescribed to avoid recurrence of the ear infection. Avoid high altitudes, may worsen the pain during ear infection. If symptoms do not improve within 2 to 3 days, then follow up with primary care doctor. Prescriptions: Acetaminophen [Acetaminophen TAB] 325 mg PO Q6HR PRN #15 tablet PRN Reason: Pain Ibuprofen [Motrin 600 MG tab] 600 mg PO Q8H PRN #20 tablet PRN Reason: Pain Amoxicillin [Trimox CAP] 500 mg PO BID #20 capsule Referrals: MEEK DE LA ROSA MD [Primary Care Provider] - 3-5 Days [facility] [Outside] - 3-5 Days [facility] [Outside] - 3-5 Days Time of Disposition: :
== END 2018-12-12 02:32 | disposition home or self-care (01) ==
LOC: ED 00:04
DX: H66.002 Acute suppurative otitis media without spontaneous rupture of ear drum, left ear (principal); Z90.49 Acquired absence of other specified parts of digestive tract
CPT/HCPCS: 99282